=== PATIENT | female | born 1965 | race Caucasian/White ===

== ENCOUNTER 2019-12-26 13:41 | Outpatient (CLI) | payer MEDICARE, MEDICAID, SELFPAY ==
--- NOTE | ~2019-12-26 | MR_ITS ---
EXAMINATION: MR lumbar spine wo con DATE: 12/26/2019 14:49 INDICATION: Dorsalgia, unspecified. TECHNIQUE: Magnetic resonance imaging (MRI) of the lumbar spine was performed without intravenous con trast. Sequences included sagittal T2-weighted FSE, sagittal T2-weighted FS FSE, sagittal T1-weighted FSE, and axial T2-weighted FSE. COMPARISON: None FINDINGS: There is 12 degrees levoscoliosis of thoracolumbar spine. Vertebral body heights are normal . There is moderately decreased disc height at L4-L5. The distal spinal cord signal intensity is norm al. The conus medullaris is at L1. The following disc levels are specifically discussed: L1-L2: There is a central protrusion. There is severe bilateral facet joint osteoarthritis. There is mild bilateral neural foraminal stenosis. There is mild central canal stenosis. L2-L3: The disc is bulging. There is severe bilateral facet joint osteoarthritis. There is mild bilat eral neural foraminal stenosis. There is mild central canal stenosis. L3-L4: The disc is bulging. There is severe bilateral facet joint osteoarthritis. There is mild right and moderate left neural foraminal stenosis. There is mild central canal stenosis. L4-L5: The disc is bulging. There is severe bilateral facet joint osteoarthritis. There is mild right and moderate left neural foraminal stenosis. There is mild central canal stenosis. L5-S1: The disc is mildly bulging. There is severe bilateral facet joint osteoarthritis. There is mil d bilateral neural foraminal stenosis. There is no central canal stenosis. IMPRESSION: 1. Moderate lumbar spondylosis. 2. Thoracolumbar levoscoliosis. Reviewed, dictated and finalized at location A. M AUDITOR
== END 2019-12-26 13:42 | disposition home or self-care (01) ==
PROVIDERS: PCP Family Medicine; Visit Provider Nurse Practitioner Family
DX: M79.605 Pain in left leg (principal); M47.896 Other spondylosis, lumbar region
CPT/HCPCS: 72148

== ENCOUNTER 2021-10-22 17:45 | Emergency (ER) | payer MEDICARE, MEDICAID, SELFPAY ==
--- NOTE | ~2021-10-22 | XR_ITS ---
EXAMINATION: XR shoulder RT min 2V DATE: 10/22/2021 18:55 INDICATION: Right shoulder pain. TECHNIQUE: 4 views of right shoulder were obtained. COMPARISON: None. FINDINGS: Bone alignment is normal. No fracture. There is mild osteoarthritis of glenohumeral joint a nd moderate osteoarthritis of acromioclavicular joint. IMPRESSION: 1. Polyarticular osteoarthritis. Reviewed, dictated and finalized at location A. ROAD INSPECTOR
[2021-10-22 17:48] VITALS: BP 121/52; PULSE 65; RESP 20; TEMP 36.3; O2SAT 98
--- NOTE | 2021-10-22 19:01 | ED.UPPEXIN ---
HPI - Extremity Injury (Upper) General Chief Complaint: Extremity Injury, Upper Stated Complaint: right shoulder pain - 2 weeks Time Seen by Provider: 10/22/21 18:43 Source: patient Mode of arrival: ambulatory Limitations: no limitations History of Present Illness HPI narrative: This is a 56-year-old female that presents to the emergency department for right shoulder pain ongoing over the last couple of weeks. Reports it started after moving a couch a couple of weeks ago. The pain is worse with movement and relieved with rest. She has been taking [id number] medications with some relief. She does have an appointment to see her orthopedic doctor in about a week for this. Reports decreased range of motion due to pain. Denies fever, erythema, edema, or numbness. Related Data Home Medications Medication Instructions Recorded Confirmed apixaban 5 mg tablet 5 mg PO BID 12/20/19 03/26/21 atorvastatin 40 mg tablet 40 mg PO DAILY 12/20/19 03/26/21 metoprolol tartrate 25 mg tablet 25 mg PO DAILY 12/20/19 03/26/21 Allergies Allergy/AdvReac Type Severity Reaction Status Date / Time No Known Allergies Allergy Verified 03/26/21 14:13 Review of Systems Review of Systems: CONSTITUTIONAL: Denies fever MUSCULOSKELETAL: Reports joint pain, and myalgia. NEUROLOGIC: Denies numbness, or weakness. All systems reviewed & are unremarkable except as noted in HPI and below PMFSH Past Medical History Medical History (Updated 10/22/21 @ 19:25 by Latricia Cali PA-C) A-fib Bilateral knee pain Left hip pain Lumbar spine pain Lumbar spondylosis Peroneal nerve injury Trochanteric bursitis, left hip Wears glasses Surgical History Surgical History (Updated 03/27/21 @ 09:35 by Shayy Meadows, RT(R)) History of bilateral knee replacement History of hand surgery Bilateral Hand, 2020, Dr. Perez Total knee replacement status Family History Family History Other Diabetes mellitus Family history of arthritis Family history of cardiovascular disease Hypertension Social History Social History Smoking status: Never smoker Alcohol intake: never Exam Narrative: GENERAL: Well-appearing, well-nourished, and in no acute distress. HEAD: Normocephalic, atraumatic. EYES: EOMI. CHEST: No respiratory distress. HEART: Regular rate EXTREMITIES: Decreased active ROM in the right shoulder above 90 degrees due to pain. No edema, erythema or warmth. Normal radial pulses. Normal sensation SKIN: Warm, dry, no rash. NEURO: No focal deficits. Alert and oriented x3. PSYCH: Normal mood and affect Course Vital Signs Vital signs: Vital Signs Temperature 97.3 F L 10/22/21 17:48 Pulse Rate 65 10/22/21 17:48 Respiratory Rate 20 10/22/21 17:48 Blood Pressure 121/52 L 10/22/21 17:48 Pulse Oximetry 98 10/22/21 17:48 Temperature 97.3 F L 10/22/21 17:48 Pulse Rate 65 10/22/21 17:48 Respiratory Rate 20 10/22/21 17:48 Blood Pressure 121/52 L 10/22/21 17:48 Pulse Oximetry 98 10/22/21 17:48 MDM - Extremity Injury (Upper) MDM Narrative Medical decision making narrative: Patient presents to the ER for right shoulder pain ongoing over the last 2 weeks. Patient is neurovascularly intact. Right shoulder x-ray without acute osseous abnormalities. Does show polyarticular osteoarthritis. Patient was updated on case findings. Reports she does have an appointment to follow up with her orthopedic doctor in a week. Instructed to continue [id number] pain medication as needed. Will be given muscle relaxer as needed for pain. She is to follow-up with her orthopedic doctor. She was given warnings to return the ER Imaging Data Radiologist's impression: ITS Impressions Shoulder X-Ray 10/22/21 18:57 IMPRESSION: 1. Polyarticular osteoarthritis. Critical Care Time Critical Care Time Crit
[2021-10-22 19:46] VITALS: BP 123/67; PULSE 69; RESP 15; O2SAT 99
== END 2021-10-22 19:49 | disposition home or self-care (01) ==
PROVIDERS: Emergency Provider Emergency Medicine; PCP Family Medicine
DX: M25.511 Pain in right shoulder (principal); I48.91 Unspecified atrial fibrillation
CPT/HCPCS: 73030; 99283

== ENCOUNTER 2025-01-30 16:31 | Emergency (ER) | payer MEDICARE, MEDICAID, SELFPAY ==
--- NOTE | ~2025-01-30 | XR_ITS ---
XR knee RT min 4V Ordering provider: Mayte White PA-C History: . pain, hx previous surg . Comparison: January 27, 2023 FINDINGS: BONES: Postoperative changes seen in the distal femur. No dislocation. Postoperative changes in the mid tibia is also noted. JOINT SPACES: Total knee arthroplasty. SOFT TISSUES: Normal. IMPRESSION: No acute osseous abnormality right knee. Total knee arthroplasty with postoperative changes in the distal femur. Reviewed, dictated and finalized at location A.
[2025-01-30 17:13] VITALS: BP 109/57; PULSE 79; RESP 20; TEMP 36.4; O2SAT 100
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
--- OUTSIDE RECORDS SUMMARY | 2025-01-30 17:52 | XMS_ITS | Clinical Summary ---
Author Organization [facility] Address [address] [place] [address] Care Team Providers Care Firmware Developer Name Role Phone Marvin Alcaraz MD Primary Care Provide r Fiorella Worley MD Unavailable [phone] Allergies No known active allergies Medications calcium carbonate-vitam in D3 400-133.3 mg-unit tabletIndicatio ns:Prevention of Vitamin D Deficiency Take 1 tablet by mouth every morning Active ferrous sulfate 325 mg (65 mg of elemental iron) tabletIndicatio ns:Iron Deficiency Anemia,Sun- - Take 1 tablet (325 mg total) by mouth 3 (three) times a week Tuesday//Tuesday Active apixaban (ELIQUIS) 5 mg tabletIndicatio ns:atrial fibrillation,hx stroke. Last dose 02/06 pm, on hold for surgery Take 1 tablet (5 mg total) by mouth 2 (two) times a day Active cyanocobalamin (Vitamin B-12) 100 mcg tabletIndicatio ns:Prevention of Vitamin B12 Deficiency Take 1 tablet (100 mcg total) by mouth every morning Active aspirin 81 mg enteric coated tabletIndicatio ns:prevention of thrombosis Take 1 tablet (81 mg total) by mouth nightly Active Linzess 145 mcg capsuleIndicati ons:constipatio n Take 1 capsule (145 mcg total) by mouth every morning 06/27/2023 Active VITAMIN K2 ORALIndications :supplement Take 1 tablet by mouth every morning Active montelukast (SINGULAIR) 10 mg tablet 12/24/2023 Active Nexletol 180 mg tablet Take 1 tablet every day by oral route for 90 days. Active Unithroid 50 mcg tablet Take 1 tablet every day by oral route for 90 days. 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 Hypoproteinemia 04/10/2024 Elevated liver enzymes 04/09/2024 Hypothyroidism 04/09/2024 Leukopenia 04/09/2024 Seasonal allergic rhinitis 03/27/2024 Low serum vitamin B12 03/15/2024 Vitamin D deficiency 03/15/2024 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, type III, with nonunion 06/21/2023 Persistent insomnia 06/07/2023 Open displaced pilon fractur e of tibia, type IIIA, IIIB, or IIIC, with routine healing 06/06/2023 Fracture of foot 03/02/2023 03/16/2023 Type III open fracture of left lower leg 023 Overview (02/04/2023): Added automatically from request for surgery [id number] Carpal tunnel syndrome, left 10/13/2021 Carpal tunnel syndrome, right 10/13/2021 Overview (10/13/2021): Added automatically from request for surgery [id number] Finger stiffness, left 10/13/2021 Overview (10/13/2021): Added automatically from request for surgery [id number] Sleep apnea 09/18/2021 03/16/2023 Family history of stroke 06/23/2021 Depressive disorder 02/20/2021 Gallstone 02/20/2021 Low back pain 02/20/2021 Osteoarthritis of knee 02/20/2021 Dupuytren's contracture of both hands 02/06/2021 Overview (02/06/2021): Added automatically from request for surgery [id number] Dupuytren's contracture of right hand 11/18/2020 Overview (11/18/2020): Added automatically from request for surgery [id number] Encounter for gynecological examination without abnormal finding 08/25/2020 Overview (04/21/2022): WWE 03/2022 -Patient is postmenopausal. Denies postmenopausal bleeding. IUD in place since 09/2015. -STI screening discussed. Patient declines. -Colonoscopy normal 08/2018, due 08/2023. -Mammogram normal 06/2021, continue yearly screening. -DEXA not indicated. -Pap negative cotesting 06/2017, 03/2022 with NILM but HRHPV+ (16/18 negative) -> needs cotest in 1 year -Diet and exercise discussed. S/p bariatric surgery and has been trying to diet and exercise. -Calcium and vitamin D intake discussed. Dysphagia 11/30/2019 Overview (11/30/2019): Added automatically from request for surgery [id number] Morbid obesity 11/30/2019 Overview (11/30/2019): Added automatically from request for surgery [id number] Intestinal malabsorption 11/30/2019 Overview (11/30/2019): Added automatically from request for surgery [id number] BMI 38.0-38.9,adult 07/17/2018 Abnormal cervical Papanicolaou smear 07/17/2017 Overview (02/13/2024): - NILM, HR HPV + non 16/18 in 04/09/2022, recommended repeat cotesting In 1 year Plan: - Cotest collected today History of bariatric surgery 10/01/2016 Hypercholesterolemia 02/04/2016 Complex endometrial hyperplasia without atypia 1 Overview (02/13/2024): - s/p HSC/D&C 09/2015, pathology showing endometrium with exogenous hormone effect, IUD placed - s/p EmBx 2017 with benign tissue - Given two benign pathologies, screening was discontinued - hIUD removed 02/13/2024 - Patient given strict return precautions if bleeding returns - Low threshold for repeat endometrial biopsy Atrial fibrillation 07/11/2014 Dyslipidemia 07/05/2014 Temporary cerebral vascular dysfunction 07/05/20 14 Resolved Problems Problem Noted Date Diagnosed Date Resolved Date Acute pharyngitis 11/07/2023 01/25/2024 Closed displaced pilon fract ure of right tibia 10/19/2023 01/25/2024 Pain in both lower extremities 09/27/2023 01/25/2024 Muscle pain 03/07/2023 03/16/2023 01/25/2024 Open fracture of right lower leg, type IIIA, IIIB, or IIIC 02/04/2023 01/25/2024 Overview (02/04/2023): Added automatically from request for surgery [id number] Fracture deformity 02/04/2023 Upper respiratory infection 01/21/2023 03/16/2023 01/25/2024 Mass of soft tissue 06/11/2022 03/16/2023 01/25/20 24 Foot pain 06/02/2022 03/16/2023 01/25/2024 Coronavirus infection 05/20/20212023 Blepharitis 02/20/2021 01/25/2024 Cervical lymphadenopathy 02/20/202104/2024 Constipation 02/20/2021 01/25/2024 Dyspnea 02/20/2021 01/25/2024 Eruption due to drug 02/20/2021 024 Nausea and vomiting 02/20/2021 01/25/20 24 Symptoms involving urinary system 02/20/2021 01/25/2024 Dizziness 09/06/2018 01/25/2024 Excess skin of abdominal wall 11/02/2016 01/25/2024 Hypotension 02/04/2016 01/25/2024 Sensory disturbance 11/09/2014 01/25/20 24 Encounters Date Type Department Care Team Description 12/26/2024 8:10 AM SENIOR BUSINESS PROCESS ANALYST Office Visit [facility] Orthopaedic Surgery [address] [place] [address] Advanced [facility] 6[address] [place] [address] [place] [address] Susan Malloy MD 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, unspecified fracture morphology, subsequent encounter (Primary Dx) 12/26/2024 7:29 AM SENIOR BUSINESS PROCESS ANALYST - 12/26/2024 11:59 PM SENIOR BUSINESS PROCESS ANALYST Hospital Encounter [facility] ([facility] [address] [place] [phone] Susan Malloy MD 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, unspecified fracture morphology, subsequent encounter Discharge Disposition: Discharge to home or self care 11/20/[address] [address] Skyler Son MD 11/07/2024 8:00 AM SENIOR BUSINESS PROCESS ANALYST Office Visit [facility] Orthopaedic Surgery [address] [place] [address] Advanced [facility] 6th [place] [address] [place] [address] Susan Malloy MD 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, unspecified fracture morphology, subsequent encounter (Primary Dx) 11/07/2024 7:30 AM SENIOR BUSINESS PROCESS ANALYST - 11/07/2024 11:59 PM SENIOR BUSINESS PROCESS ANALYST Hospital Encounter [facility] ([facility]) [address] [place] [phone] Susan Malloy MD 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, unspecified fracture morphology, subsequent encounter Discharge Disposition: Discharge to home or self care from Last 3 Months Immunizations Immunization Administration Dates Next Due Influenza, Quadrivalent, Spl it, Preservative Free, Intramuscular 09/04/2021,09/15/2020,09/17/2019,10/04,10/04/2017,09/10/2015 Influenza, Trivalent, IM (MDV) 11/28/2012,2012 Influenza, Trivalent, Preser vative Free, Intramuscular 09/13/2014 Influenza, Unspecified 11/21/2022,08/25/2013 Pneumococcal Polysaccharide PPV23 10/04/2017 Tdap 02/04/2023 ZOSTER Recombinant 09/16/2020 Surgical History Surgery Date Site/Laterality Comments IN GASTRIC RSTCV W/BYP W/RANJAN RT LIMB 150 CM/< 11/21/2012 - 11/20/2013 Gastric Surgery For Morbid Obesity Bypass With Josue-en-Y - (Added by TW Conv) EXPLORATORY LAPAROTOMY 11/21/2013 - 11/20/2014 HYSTEROSCOPY 11/21/2016 - 11/20/2017 SECTION 11/21/1996 - 11/20/1997 CHOLECYSTECTOMY 11/21/2013 - 11/20/2014 Cholecystectomy - (Added by TW Conv) TOTAL KNEE ARTHROPLASTY 11/21/2015 - 11/20/2016 Right TOTAL KNEE ARTHROPLASTY 11/21/2017 - 11/20/2018 Left COLONOSCOPY 09/15/2018 DEBRIDEMENT LEG 02/04/2023 Bilateral APPLICATION EXTERNAL FIXATION DEVICE LOWER EXTREMITY SECTION 11/21/1988 - 11/20/1989 SECTION 11/21/1990 - 11/20/1991 ESOPHAGOGASTRODUODENOSCOPY 12/04/2019 PALMAR FASCIECTOMY 02/12/2021 Left Left Palm, Middle Finger, Small finger PALMAR FASCIECTOMY 12/01/2020 Right Right small finger and thumb ORTHOPEDIC SURGERY 02/22/2023 REMOVAL EXTERNAL FIXATION DEVICE LOWER EXTREMITY/OPEN REDUCTION INTERNAL FIXATION TIBIA /fibula- DISTAL / PILON AND CEMENT PLACEMENT - SYNTHES BONE GRAFT 06/21/2023 Right HARDWARE REMOVAL 09/25/2024 Left ankle Medical History Medical History Date Comments Benign endometrial hyperplasia C omplex endometrial hyperplasia without atypia - (Added by TW Conv) Abnormal Pap smear of cervix Irregular menses TIA (transient ischemic attack) 2013 Atrial fibrillation (HCC) Stroke (HCC) 2014 Dysphagia Arthritis Sleep apnea 09/18/2021 Nausea and vomiting 02/20/2021 PONV (postoperative nausea a nd vomiting) Family History Medical History Relation Name Comments Heart disease Father Hypertension Mother Family history of hypertension - (Added by TW Conv) Diabetes Paternal Grandmother Anesthesia problems Neg Hx Relation Name Status Comments Father Mother Paternal Grandmother Social History Tobacco Use Types Packs/Day Years Used Date Smoking Tobacco: Never Passive Smoke Exposure: Past Smokeless Tobacco: Never Tobacco Cessation:Counseling Given: Not Answered Alcohol Use Standard Drinks/Week Comments No 0 (1 standard drink = 0.6 oz pur e alcohol) OASIS D0700: Social Isolation Answer Da te Recorded Frequency of experiencing loneliness or isolatio n Never 08/17/2023 OASIS A1250: Transportation Answer Date Recorded Lack of Transportation (Medical) No 08/17/2023 Lack of Transportation (Non-Medical) No 08/17/2023 Patient Unable or Declines to Respond No 08/17/2023 OASIS B1300: Health Literacy Answer Herbie e Recorded Frequency of needing help to read materials from doctor or pharmacy Never 08/17/2023 AUDIT-C Answer Date Recorded Q1: How often do you have a drink containing alcohol? Never 09/25/2024 Q2: How many drinks containi ng alcohol do you have on a typical day when you are drinking? Patient does not drink Q3: How often do you have si x or more drinks on one occasion? Never 09/25/2024 Hunger Vital Sign Answer Date Recorded Within the past 12 months, y ou worried that your food would run out before you got the money to buy more. Never true 02/13/20 24 Within the past 12 months, t he food you bought just didn't last and you didn't have money to get more. Never true 02/13/2024 Personal Safety Answer Date Recorded Have you ever been in or are you currently in a harmful physical or emotional relationship or is someone making you feel afraid or unsafe? Patient unable to answer 09/25/2024 Comments No Sex and Gender Information Value Date Recorded Sex Assigned at Not on file Legal Sex Female 10:02 AM SENIOR BUSINESS PROCESS ANALYST Gender Identity Not on file Sexual Orientation Straight 07/06/2021 8: 53 AM CDT Obstetrics History Para Term AB IAB SAB Ectopic Multiple Livin g Live Births 3 3 3 3 3 Date Outcome GA Total Labor Labor/2nd/3rd Weight Sex Type Anes PTL Belkys A1 A5 Name Clin Term CS-LTra nv Term CS-LTra nv Term CS-LTra nv Last Filed Vital Signs Vital Sign Reading Time Taken Comments Blood Pressure 112/54 09/25/2024 3:50 PM SENIOR BUSINESS PROCESS ANALYST Pulse 67 09/25/2024 3:50 PM SENIOR BUSINESS PROCESS ANALYST Temperature 36.2 C (97.2 F) 09/25/2024 12:55 PM SENIOR BUSINESS PROCESS ANALYST Respiratory Rate 9 09/25/2024 3:50 PM SENIOR BUSINESS PROCESS ANALYST Oxygen Saturation 93% 09/25/2024 3:30 PM SENIOR BUSINESS PROCESS ANALYST Inhaled Oxygen Concentration - - Weight 145.2 kg (320 lb) 09/25/2024 8:10 AM SENIOR BUSINESS PROCESS ANALYST Height 167.6 cm (5' 6 ) 01/22/2024 7:51 PM SENIOR BUSINESS PROCESS ANALYST Body Mass Index 51.65 01/22/2024 7:51 PM SENIOR BUSINESS PROCESS ANALYST Plan of Treatment Health Maintenance Due Date Last Done Comments Depression Screening 1964 Hepatitis B Screening 1982 Regular Well Visit/Exam 18-64 08/25/2021 08/25/2020, 07/17/2018 Covid-19 Vaccine ( season) 2024 10/21/2021, 01/24/2021 Breast Cancer Screening-Mammogram 12/31/2024 12/31/2023, 08/20/2022, 08/20/2022, Additional history exists Cervical Cancer Screening 02/12/20252023, 02/13/2024, 04/09/2022 Colon Cancer Screening-Colonoscopy 09/15/2028 09/15/2018 DTaP/Tdap/Td Vaccine (2 - Td or Tdap) 02/04/2033 02/04/2023 Colon Cancer Screening-CT Colonography Discontinued 09/15/2018 Colon Cancer Screening-DNA Stool Discontinued 09/15/2018 Colon Cancer Screening-FIT Discontinued 09/15/2018 Colon Cancer Screening-Sigmoidoscopy Discontinued 09/15/2018 Zoster Vaccine Completed 11/25/2020, 09/16/2020 Hepatitis C Screening Completed 02/22/2023 Pneumococcal vaccine <65 Aged Out 09/28/2023, 09/21 No longer eligible based on patient's age to complete this topic Influenza Vaccine Completed 10/24/2024, , 11/21/2022, Additional history exists Medical Devices Implanted Type Area [employer] Supervisor Device Identifier Shelf Expiration Date Model / Serial / Lot Nail [id number] Implanted:Qty: 1 on 10/25/2023 by Fiorella Worley MD at [facility] Nail Right: Ankle [employer] 07/26/2024 FRANCIS-1010-1 0210 / / [id number] Description:inactive Allosource Freeze Dried Chips 4-10mm Graft 30ml Bone Cancellous [id number] - [id number] Implanted:Qty: 1 on 06/21/2023 by Fiorella Worley MD at [facility] Other - see comments Right: Leg [employer]osource 01/28/2028 [id number] / [id number] / [id number] Description:Cancellous Chips Allosource Freeze Dried Chips 4-10mm Graft 30ml Bone Cancellous 37597578 - [id number] - [id number] Implanted:Qty: 1 on 06/21/2023 by Fiorella Worley MD at [facility] Other - see comments Right: Leg [employer] 10/18/2027 [id number] / [id number] / [id number] Description:Cancellous Chips Synthes Lcp Combi 853d91i2.4mm 10 Hole Limit Contact Taper End Plate Bone 223.601 - [id number] Implanted:Qty: 1 on 06/21/2023 by Fiorella Worley MD at [facility] Plate Right: Leg Synthes I 223.601 / / Synthes 3.5mm 6mm 70mm 2.5mm Self Tap Small Hexagonal Socket Low Profile 204.870 - [id number] Implanted:Qty: 2 on 06/21/2023 by Fiorella Worley MD at [facility] Screw Right: Leg Synthes I 204.870 / / Synthes 3.5mm 6mm 42mm 2.5mm Self Tap Small Hexagonal Socket Low Profile 204.842 - [id number] Implanted:Qty: 1 on 06/21/2023 by Fiorella Worley MD at [facility] Screw Right: Leg Synthes I 204.842 / / Synthes 3.5mm 2.9mm 50mm Self Tap Lock Stardrive Conical Head T15 Full 212.121 - [id number] Implanted:Qty: 1 on 06/21/2023 by Fiorella Worley MD at [facility] Screw Right: Leg Synthes I 212.121 / / Synthes 3.5mm 2.9mm 85mm Self Tap Lock Stardrive Conical Head T15 Full 212.129 - [id number] Implanted:Qty: 1 on 06/21/2023 by Fiorella Worley MD at [facility] Screw Right: Leg Synthes I 212.129 / / Hardware Bilater al: Knee Synthes Schanz 5mm 170mm 50mm Blunt [place]car [place] Xlong Screw External 294.55 - [id number] Implanted:Qty: 4 on 02/04/2023 by Torey Escalera MD at [facility] Leg Synthes I 294.55 / / Synthes Steinmann 5mm 5.5mm 275mm Central Thread Pin Fixation Large 293.890 - [id number] Implanted:Qty: 2 on 02/04/2023 by Torey Escalera MD at [facility] Bilater al: Leg Synthes I 293.890 / / Synthes 3.5mm 6mm 34mm 2.5mm Self Tap Small Hexagonal Socket Low Profile 204.834 - [id number] Implanted:Qty: 1 on 02/22/2023 at [facility] Left: Tibia Synthes I 204.834 / / Synthes Lcp Combi 112mm 6 Hole Fibula Left Distal Lateral Contour Plate 02.112.143 - [id number] Implanted:Qty: 1 on 02/22/2023 at [facility] Left: Tibia Synthes I 02.112.143 / / Synthes Lcp Combi 158mm 11 Hole Low Profile Limit Contact Taper Tip 241.447 - [id number] Implanted:Qty: 1 on 02/22/2023 at [facility] Left: Tibia Synthes I 241.447 / / Synthes 3.5mm 2.9mm 50mm Self Tap Lock Stardrive Conical Head T15 Full 212.121 - [id number] Implanted:Qty: 1 on 02/22/2023 at [facility] Left: Tibia Synthes I 212.121 / / Synthes 3.5mm 6mm 36mm 2.5mm Self Tap Small Hexagonal Socket Low Profile 204.836 - [id number] Implanted:Qty: 2 on 02/22/2023 by Fiorella Worley MD at [facility] Right: Tibia Synthes I 204.836 / / Synthes 3.5mm 6mm 24mm 2.5mm Self Tap Small Hexagonal Socket Low Profile 204.824 - [id number] Implanted:Qty: 1 on 02/22/2023 by Fiorella Worley MD at [facility] Right: Tibia Synthes I 204.824 / / Synthes 3.5mm 2.9mm 45mm Self Tap Lock Stardrive Conical Head T15 Full 212.119 - [id number] Implanted:Qty: 2 on 02/22/2023 by Fiorella Worley MD at [facility] Right: Tibia Synthes I 212.119 / / Synthes 3.5mm 6mm 26mm 2.5mm Self Tap Small Hexagonal Socket Low Profile 204.826 - [id number] Implanted:Qty: 1 on 02/22/2023 by Fiorella Worley MD at [facility] Right: Tibia Synthes I 204.826 / / Synthes 3.5mm 2.9mm 40mm Self Tap Lock Stardrive Conical Head T15 Full 212.117 - [id number] Implanted:Qty: 2 on 02/22/2023 by Fiorella Worley MD at [facility] Left: Tibia Synthes I 212.117 / / Synthes 3.5mm 6mm 22mm 2.5mm Self Tap Small Hexagonal Socket Low Profile 204.822 - [id number] Implanted:Qty: 1 on 02/22/2023 by Fiorella Worley MD at [facility] Right: Tibia Synthes I 204.822 / / Synthes 2.7mm 2.1mm 14mm Self Tap Lock Stardrive Thread Head Profile T8 202.214 - [id number] Implanted:Qty: 2 on 02/22/2023 by Fiorella Worley MD at [facility] Right: Tibia Synthes I 202.214 / / Synthes 3.5mm 6mm 30mm 2.5mm Self Tap Small Hexagonal Socket Low Profile 204.830 - [id number] Implanted:Qty: 1 on 02/22/2023 by Fiorella Worley MD at [facility] Right: Tibia Synthes I 204.830 / / Synthes 3.5mm 2.9mm 50mm Self Tap Lock Stardrive Conical Head T15 Full 212.121 - [id number] Implanted:Qty: 1 on 02/22/2023 by Fiorella Worley MD at [facility] Right: Tibia Synthes I 212.121 / / Synthes 3.5mm 2.9mm 26mm Self Tap Lock Stardrive Conical Head T15 Full 212.109 - [id number] Implanted:Qty: 1 on 02/22/2023 by Fiorella Worley MD at [facility] Right: Tibia Synthes I 212.109 / / Synthes 2.7mm 2.1mm 16mm Self Tap Lock Stardrive Thread Head Profile T8 202.216 - [id number] Implanted:Qty: 2 on 02/22/2023 by Fiorella Worley MD at [facility] Right: Tibia Synthes I 202.216 / / Synthes 3.5mm 6mm 14mm 2.5mm Self Tap Small Hexagonal Socket Low Profile 204.814 - [id number] Implanted:Qty: 1 on 02/22/2023 by Fiorella Worley MD at [facility] Right: Tibia Synthes I 204.814 / / Synthes 3.5mm 2.9mm 40mm Self Tap Lock Stardrive Conical Head T15 Full 212.117 - [id number] Implanted:Qty: 1 on 02/22/2023 by Fiorella Worley MD at [facility] Right: Tibia Synthes I 212.117 / / Synthes 3.5mm 6mm 40mm 2.5mm Self Tap Small Hexagonal Socket Low Profile 204.840 - [id number] Implanted:Qty: 1 on 02/22/2023 by Fiorella Worley MD at [facility] Right: Tibia Synthes I 204.840 / / Synthes 2.7mm 2.1mm 12mm Self Tap Lock Stardrive Thread Head Profile T8 202.212 - [id number] Implanted:Qty: 1 on 02/22/2023 by Fiorella Worley MD at [facility] Right: Tibia Synthes I 202.212 / / Synthes 2.7mm 2.1mm 12mm Self Tap Lock Stardrive Thread Head Profile T8 202.212 - [id number] Implanted:Qty: 1 on 02/22/2023 by Fiorella Worley MD at [facility] Left: Tibia Synthes I 202.212 / / Synthes Lcp Combi 210mm 15 Hole Low Profile Limit Contact Taper Tip 241.450 - [id number] Implanted:Qty: 1 on 02/22/2023 by Fiorella Worley MD at [facility] Left: Tibia Synthes I 241.450 / / [employer] Simplex P Full Dose Radiopaque Preblend Cement Bone Tobramycin 6197-9-001 - [id number] Implanted:Qty: 1 on 02/22/2023 by Fiorella Worley MD at [facility] Right: Tibia [employer] [id number] 07/21/2024 6197-9-001 / / [id number] Synthes 3.5mm 6mm 30mm 2.5mm Self Tap Small Hexagonal Socket Low Profile 204.830 - [id number] Implanted:Qty: 1 on 02/22/2023 by Fiorella Worley MD at [facility] Left: Tibia Synthes I 204.830 / / Synthes 2.7mm 2.1mm 16mm Self Tap Lock Stardrive Thread Head Profile T8 202.216 - [id number] Implanted:Qty: 1 on 02/22/2023 by Fiorella Worley MD at [facility] Left: Tibia Synthes I 202.216 / / Synthes 2.7mm 2.1mm 14mm Self Tap Lock Stardrive Thread Head Profile T8 202.214 - [id number] Implanted:Qty: 2 on 02/22/2023 by Fiorella Worley MD at [facility] Left: Tibia Synthes I 202.214 / / Synthes Lcp Combi 151mm 9 Hole Fibula Right Distal Lateral Contour Plate 02.112.148 - [id number] Implanted:Qty: 1 on 02/22/2023 by Fiorella Worley MD at [facility] Right: Tibia Synthes I 02.112.148 / / Synthes 3.5mm 6mm 12mm 2.5mm Self Tap Small Hexagonal Socket Low Profile 204.812 - [id number] Implanted:Qty: 1 on 02/22/2023 by Fiorella Worley MD at [facility] Right: Tibia Synthes I 204.812 / / Synthes 3.5mm 6mm 18mm 2.5mm Self Tap Small Hexagonal Socket Low Profile 204.818 - [id number] Implanted:Qty: 1 on 02/22/2023 by Fiorella Worley MD at [facility] Right: Tibia Synthes I 204.818 / / Synthes 3.5mm 2.9mm 45mm Self Tap Lock Stardrive Conical Head T15 Full 212.119 - [id number] Implanted:Qty: 3 on 02/22/2023 by Fiorella Worley MD at [facility] Left: Tibia Synthes I 212.119 / / Synthes 3.5mm 2.9mm 40mm Self Tap Lock Stardrive Conical Head T15 Full 212.117 - [id number] Implanted:Qty: 2 on 02/22/2023 at [facility] Left: Tibia Synthes I 212.117 / / Synthes 3.5mm 6mm 28mm 2.5mm Self Tap Small Hexagonal Socket Low Profile 204.828 - [id number] Implanted:Qty: 3 on 02/22/2023 by Fiorella Worley MD at [facility] Left: Tibia Synthes I 204.828 / / Synthes 3.5mm 6mm 14mm 2.5mm Self Tap Small Hexagonal Socket Low Profile 204.814 - [id number] Implanted:Qty: 3 on 02/22/2023 by Fiorella Worley MD at [facility] Left: Tibia Synthes I 204.814 / / Synthes 3.5mm 6mm 40mm 2.5mm Self Tap Small Hexagonal Socket Low Profile 204.840 - [id number] Implanted:Qty: 1 on 02/22/2023 at [facility] Left: Tibia Synthes I 204.840 / / Synthes 3.5mm 6mm 18mm 2.5mm Self Tap Small Hexagonal Socket Low Profile 204.818 - [id number] Implanted:Qty: 1 on 02/23/2023 at [facility] Left: Tibia Synthes I 204.818 / / [employer] r[employer] Screw Bone Cortical St Non Locking Evos 3.5x30mm Ss 01809709 - [id number] Implanted:Qty: 2 on 10/25/2023 by Fiorella Worley MD at [facility] Right: Ankle [employer]/ Ortho [id number] / / [employer] Evos 3.5mm 40mm Self Tap Cortex Screw Bone Sterile 51046640 - [id number] Implanted:Qty: 1 on 10/25/2023 by Fiorella Worley MD at [facility] Right: Ankle [employer]/ Ortho [id number] / / [employer] 2.7mm 4.3mm 42mm Lock Self Retain Flat Head Long Bone Small Bone 42394007 - [id number] Implanted:Qty: 1 on 10/25/2023 by Fiorella Worley MD at [facility] Right: Ankle [employer]/ Ortho [id number] / / [employer] Evos 3.5mm 44mm Self Tap Lock Screw Bone Sterile [id number] - [id number] Implanted:Qty: 1 on 10/25/2023 by Fiorella Worley MD at [facility] Right: Ankle [employer]/ Ortho [id number] / / 5.0 Ft Screw Implanted:Qty: 2 on 10/25/2023 by Fiorella Worley MD at [facility] Right: Ankle [employer] FARNCIS-1010-1 [id number] / / Description:inactive 5.0ft Screw Implanted:Qty: 2 on 10/25/2023 by Fiorella Worley MD at [facility] Right: Ankle [employer] FRANCIS-1010-1 475NS / / Description:inactive [employer]Rich[employer]/O rtho Evos 195x11.4x3.4mm 18.8x2.7mm 15 Hole Low Profile Variable Angle [id number] - [id number] Implanted:Qty: 1 on 10/25/2023 by Fiorella Worley MD at [facility] Right: Ankle [employer]Rich[employer]/ Ortho [id number] / / [employer]Rich[employer]/O rtho Evos Mini 2.7mm 4.5mm 12mm Self Tap Cortex T8 Screw Bone [id number] - [id number] Implanted:Qty: 1 on 10/25/2023 by Fiorella Worley MD at [facility] Right: Ankle [employer]Rich[employer]/ Ortho [id number] / / [employer]hew[employer]Rich[employer]/O rtho Evos 3.5mm 50mm Self Tap Cortex Screw Bone Sterile [id number] - [id number] Implanted:Qty: 1 on 10/25/2023 by Fiorella Worley MD at [facility] Right: Ankle [employer]Rich[employer]/ Ortho [id number] / / 5.0 Ft Screw Implanted:Qty: 1 on 09/25/2024 by Fiorella Worley MD at [facility] FRANCIS-1010-1 444NS / / Description:Inactive in the system. Misc code used. 5.0 Ft Screw 2 Implanted:Qty: 2 on 09/25/2024 by Fiorella Worley MD at [facility] FRANCIS-1010-1 424NS / / Description:Inactive in syst em. Misc code used 3 Implanted:Qty: 1 on 09/25/2024 by Fiorella Worley MD at [facility] FRANCIS-1010-2 675NS / / Description:Inactive in the system. Misc code used 5.0 Pt Screw 4 Implanted:Qty: 1 on 09/25/2024 by Fiorella Worley MD at [facility] FRANCIS-1010-2 670NS / / Description:Inactive in the system. Misc code used Nail, 010mm X 210mm Implanted:Qty: 1 on 09/25/2024 by Fiorella Worley MD at [facility] FRANCIS-1010-1 0210 / / Description:Inactive in the system misc code used Explanted Type Area [employer]erry [employer] Supervisor Device Identifier Shelf Expiration Date Model / Serial / Lot Synthes 3.5mm 6mm 32mm 2.5mm Self Tap Small Hexagonal Socket Low Profile 204.832 - [id number] Explanted:Qty: 1 on 02/22/2023 at [facility] Left: Tibia Synthes I 204.832 / / Synthes 3.5mm 6mm 150mm 2.5mm Self Tap Low Profile Small Hexagonal Socket 204.750 - [id number] Explanted:Qty: 1 on 10/25/2023 at [facility] Right: Ankle Synthes I 204.750 / / [employer]/ Ortho Evos 3.5mm 10mm Self Tap Cortex Screw Bone Sterile [id number] - [id number] Explanted:Qty: 1 on 10/25/2023 at [facility] Right: Ankle [employer]/Or tho [id number] / / [employer]/ Ortho Evos 3.5mm 16mm Self Tap Cortex Screw Bone Sterile [id number] - [id number] Explanted:Qty: 1 on 10/25/2023 at [facility] Right: Ankle [employer]/Or tho [id number] / / [employer]/ Ortho 2.7mm 4.3mm 16mm Self Tap Lock T8 2mm Screw Bone Evos [id number] - [id number] Explanted:Qty: 2 on 10/25/2023 by Fiorella Worley MD at [facility] Right: Ankle [employer]/Or tho [id number] / / [employer]/ Ortho 2.7mm 4.3mm 44mm Lock Self Retain Flat Head Long Bone Small Bone [id number] - [id number] Explanted:Qty: 1 on 10/25/2023 by Fiorella Worley MD at [facility] Right: Ankle [employer]/Or tho [id number] / / Procedures Procedure Name Priority Date/Time Associated Diagnosis Comments XR ANKLE LEFT 3 OR MORE VIEWS Schedule Routine, Read Routine (OP Routine) 12/26/2024 7:36 AM SENIOR BUSINESS PROCESS ANALYST 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, unspecified fracture morphology, subsequent encounter XR ANKLE LEFT 3 OR MORE VIEWS Schedule Routine, Read Routine (OP Routine) 11/07/2024 7:41 AM SENIOR BUSINESS PROCESS ANALYST 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, unspecified fracture morphology, subsequent encounter PAP AND HIGH RISK HPV, REFLEX TO GENOTYPING Routine 02/13/2024 9:40 AM CDT Health care maintenance SCREENING MAMMOGRAM BILATERAL W RONALDO Schedule Routine, Read Routine (OP Routine) 12/31/2023 2:12 PM SENIOR BUSINESS PROCESS ANALYST Screening mammogram, encounter for HEPATITIS C ANTIBODY STAT 02/22/2023 1:10 PM CDT COLONOSCOPY 09/15/2018 3:55 PM CDT from Last 3 Months or Most Recently Relevant to Health Maintenance Results * XR Ankle Left 3 or More Views (12/26/2024 7:36 AM SENIOR BUSINESS PROCESS ANALYST) Anatomical Region Laterality Modality Lower Extremities, Ankle Left Compute d Radiography 12/26/2024 7:44 AM SENIOR BUSINESS PROCESS ANALYST Impressions 12/26/2024 7:44 AM SENIOR BUSINESS PROCESS ANALYST 1. Healing distal tibia metaphysis fracture fixated with tibiotalocalcaneal nail arthrodesis. Electronically signed by: Max Garcias D.O. Narrative 12/26/2024 7:44 AM SENIOR BUSINESS PROCESS ANALYST EXAMINATION: XR ANKLE LEFT 3 OR MORE VIEWS HISTORY: FRACTURE FINDINGS: Comparison is made to 11/07/2024 radiograph. Retrograde tibiotalocalcaneal nail arthrodesis with integrated tibial and calcaneal screws appears intact. Additional lag screws in the distal tibia appear intact. Screw tracks from previously removed instrumentation. The construct spans a distal tibia metaphysis fracture which appears to be healing with periosteal reaction and progressive callus formation with slightly decreased conspicuity of the fracture line. Unchanged ununited distal fibular fracture without significant malalignment. Plantar calcaneal spur. Achilles insertional enthesophyte. Soft tissue thickening near the Achilles insertion, suggesting underlying Achilles tendinopathy. Mild soft tissue swelling. Procedure Note Max Garcias, DO - 12/26/2024 EXAMINATION: XR ANKLE LEFT 3 OR MORE VIEWS HISTORY: FRACTURE FINDINGS: Comparison is made to 11/07/2024 radiograph. Retrograde tibiotalocalcaneal nail arthrodesis with integrated tibial and calcaneal screws appears intact. Additional lag screws in the distal tibia appear intact. Screw tracks from previously removed instrumentation. The construct spans a distal tibia metaphysis fracture which appears to be healing with periosteal reaction and progressive callus formation with slightly decreased conspicuity of the fracture line. Unchanged ununited distal fibular fracture without significant malalignment. Plantar calcaneal spur. Achilles insertional enthesophyte. Soft tissue thickening near the Achilles insertion, suggesting underlying Achilles tendinopathy. Mild soft tissue swelling. IMPRESSION: 1. Healing distal tibia metaphysis fracture fixated with tibiotalocalcaneal nail arthrodesis. Electronically signed by: Max Garcias D.O. us Susan Malloy MD IMG XR PROCEDURES Final Re sult * XR Ankle Left 3 or More Views (11/07/2024 7:41 AM SENIOR BUSINESS PROCESS ANALYST) Anatomical Region Laterality Modality Lower Extremities, Ankle Left Compute d Radiography 11/07/2024 7:47 AM SENIOR BUSINESS PROCESS ANALYST Impressions 11/07/2024 7:47 AM SENIOR BUSINESS PROCESS ANALYST 1. Interval left tibiotalar and subtalar instrumented arthrodesis for management of comminuted nonunited distal left tibial fracture. 2. Unchanged nonunited distal left fibular fracture with interval removal of fixation implant. Electronically signed by: Karson Merino M.D. Narrative 11/07/2024 7:47 AM SENIOR BUSINESS PROCESS ANALYST EXAMINATION: XR ANKLE LEFT 3 OR MORE VIEWS HISTORY: Fracture follow-up FINDINGS: 3 view examination of the nonweightbearing left ankle is read with comparison to CT 09/21/2024. Interval changes of tibiotalar and subtalar arthrodesis for management of comminuted distal tibial fracture nonunion. The fracture is transfixed by a retrograde intramedullary nail with proximal and distal interlocking screws. The previously seen plate and screw constructs have been removed. There is an unchanged nonunited distal fibula fracture. 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 Distal Achilles enthesophyte and plantar calcaneal spur noted. There is thickening of the distal Achilles tendon and outline indicative of likely underlying tendinopathy. Procedure Note Damián Merino, Karson Bennett MD - 11/07/2024 EXAMINATION: XR ANKLE LEFT 3 OR MORE VIEWS HISTORY: Fracture follow-up FINDINGS: 3 view examination of the nonweightbearing left ankle is read with comparison to CT 09/21/2024. Interval changes of tibiotalar and subtalar arthrodesis for management of comminuted distal tibial fracture nonunion. The fracture is transfixed by a retrograde intramedullary nail with proximal and distal interlocking screws. The previously seen plate and screw constructs have been removed. There is an unchanged nonunited distal fibula fracture. 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 Distal Achilles enthesophyte and plantar calcaneal spur noted. There is thickening of the distal Achilles tendon and outline indicative of likely underlying tendinopathy. IMPRESSION: 1. Interval left tibiotalar and subtalar instrumented arthrodesis for management of comminuted nonunited distal left tibial fracture. 2. Unchanged nonunited distal left fibular fracture with interval removal of fixation implant. Electronically signed by: Karson Merino M.D. us Susan Malloy MD IMG XR PROCEDURES Final Re sult * Pap and High Risk HPV and Genotyping (Cytology Component) (02/13/2024 9:40 AM CDT) Thin prep (Pap test) 02/13/2024 9:40 AM CDT 02/13/2024 11:27 AM CDT Narrative PATHOLOGY [facility] - 02/20/2024 8:42 AM CDT EPIC results best viewed via link to PDF [facility] [place] [address] Note to Patients: This report may contain a detailed description of human tissue sent by a health care provider to the laboratory for pathologic evaluation. The content of this report is essential for diagnosis and may provide important critical findings. This information may be unfamiliar to patients to review without a medical professional present. It is advised that the patient review this report in the presence of a health care provider who can answer questions and explain the details. CYTOPATHOLOGY REPORT FINAL Patient Name: EILEEN FERMIN Gender: F : 1965 (Age: 58) Address: [address] [place] [id number] Hospital #: [id number] Service: UNKNOWN Location: Patient Type: [facility] SPECIMEN Taken: 02/13/2024 Received: 02/13/2024 Accessioned: 02/13/2024 Reported: 02/20/2024 Physician(s): Marsha Crowe M.D. FINAL INTERPRETATION SOURCE OF SPECIMEN Liquid based Thin Prep pap with HPV: STATEMENT OF ADEQUACY - Satisfactory for evaluation - Endocervical cells/transformation zone sample present GENERAL CATEGORIZATION: - Negative for squamous intraepithelial lesion or malignancy Comments (Normal-Negative for High Risk HPV) HPV HR 16- Not detected HPV HR 18-Not detected HPV HR non 16/18- Not detected Interpretive Data Nucleic acid amplification for detection of high-risk Human Papilloma virus (HPV) is performed by the Cristopher Gladys 6800 HPV test. This assay specifically detects HPV- 16 and HPV-18 genotypes. The following HPV genotypes are detected as high-risk HPV: HPV-31, 33, 35, 39, 45, 51, 52, 56, 58, 59, 66, and 68. This assay has been approved by the [place] Food and Drug Administration for detection of HPV in cervical specimens collected by a physician using an endocervical brush/spatula or cervical broom and placed in the ThinPrep Pap Test PreservCyt collection containers. The performance characteristics of this test have been verified by the [facility] laboratory. Correlate with reported cytology results, as applicable. Interpretive data last revised 23 andrea/02/20/2024 08:42 TATUM Rojas(ASCP) Report Electronically Reviewed and Signed Out By TATUM Rojas(ASCP) 02/20/2024 08:42:25 Cervicovaginal Cytology (Pap Test) Disclaimer: The Pap test is a screening test used to detect cervical cancer and its precursors; it is not a diagnostic procedure. False negative and false positive results do occur. Pap test results should be interpreted in the context of pertinent clinical information and biopsy results as indicated. CMS Clinical Laboratory Improvement Amendments (CLIA) mandate that cytologic and histologic results be correlated for laboratory director software quality assurance & improvement standards. FOR ALL HIGH-GRADE CASES we request submission of follow-up histological material and/or reports that have not been previously provided so that we may fulfill said required standards. Gross Description A. 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 Report Images and scanned documents, if included only viewable in PDF version The performance characteristics of some immunohistochemical stains, in-situ hybridization and fluorescence in-situ hybridization tests and immunophenotyping by flow cytometry cited in this report (if any) were determined by the Surgical Pathology Department at [facility] as part of an ongoing production quality analyst program and in compliance with federally mandated regulations drawn from the Clinical Laboratory Improvement Act of 1988 (CLIA '88). Some of these tests rely on the use of analyte specific reagents and are subject to specific labeling requirements by the [place] Food and Drug Administration. Such diagnostic tests may only be performed in a facility that is certified by the Department of Health and Human Services as a high complexity laboratory under CLIA '88. The FDA has determined that such clearance or approval is not necessary. This test is used for clinical purposes. It should not be regarded as investigational or for research. Nevertheless, federal rules concerning the medical use of analyte specific reagents require that the following disclaimer be attached to the report: This test was developed and its performance characteristics determined by the Surgical Pathology Department of [facility]. It has not been cleared or approved by the U. S. Food and Drug Administration. Marsha Grewal MD LAB CYTOLOGY ORDER DEEPAK Final Result PATHOLOGY [facility] 3rd Floor [place], [place] [phone] * Screening Mammogram Bilateral W Ronaldo (12/31/2023 2:12 PM SENIOR BUSINESS PROCESS ANALYST) Anatomical Region Laterality Modality Breast Bilateral Mammography Narrative 01/03/2024 3:05 PM SENIOR BUSINESS PROCESS ANALYST Mammogram Technique: Bilateral Digital Breast Tomosynthesis, Bilateral C-view 2D Screening mammogram. Views obtained: bilateral craniocaudal and bilateral mediolateral oblique. Computer Aided Detection was performed. Mammogram Findings: The present examination has been compared to prior imaging studies performed at [facility] on 07/08/2020, 07/09/2021 and 08/20/2022. There are scattered areas of fibroglandular density. There is no suspicious abnormality in either breast. Impression: There is no mammographic evidence of malignancy. Annual screening mammography is recommended. OVERALL FINAL ASSESSMENT: BI-RADS CATEGORY 1: Negative. Procedure Note Daphne Peoples MD - 01/03/2024 Mammogram Technique: Bilateral Digital Breast Tomosynthesis, Bilateral C-view 2D Screening mammogram. Views obtained: bilateral craniocaudal and bilateral mediolateral oblique. Computer Aided Detection was performed. Mammogram Findings: The present examination has been compared to prior imaging studies performed at [facility] on 07/08/2020, 07/09/2021 and 08/20/2022. There are scattered areas of fibroglandular density. There is no suspicious abnormality in either breast. Impression: There is no mammographic evidence of malignancy. Annual screening mammography is recommended. OVERALL FINAL ASSESSMENT: BI-RADS CATEGORY 1: Negative. us Self Screening Mammogram IMG MAMMO PROCEDURES Fi nal Result * Hepatitis C antibody (02/22/2023 1:10 PM CDT) Hep C Ab Nonreactive Nonreactive [facility] Comment:Antibodies to HCV no t detected. Does NOT exclude the possibility of recent exposure to HCV. Current interpretive data was last revised on 22 Blood 02/22/2023 1:10 PM CDT 02/22/2023 1:45 PM CDT us Notinfile Unknown LAB MICROBIOLOGY - GENERAL ORD ERABLES Final Result Performing Organization Address City/State/[facility] Co de Phone Number [facility] Department [place] [address] * COLONOSCOPY (09/15/2018 3:55 PM CDT) Anatomical Region Laterality Modality Other Narrative Procedure Note Carlos Alberto Todd MD - 09/15/2018 3:55 PM CDT GI ENDOSCOPY [facility] Patient Name: Eileen Fermin Procedure Date: 09/15/2018 3:55 PM Date of : 1965 Admit Type: Outpatient Age: 53 Gender: Female Attending MD: Carlos Alberto Todd MD Room: [facility] ENDOSCOPY ROOM 3 Note Status: Finalized Procedure: Colonoscopy Indications: Screening in patient at increased risk: Colorectal cancer in brother before age 60 Referring MD: Yissel Mosquera M.D. Providers: Carlos Alberto Todd MD Medicines: Monitored Anesthesia Care Complications: No immediate complications. Estimated Blood Loss: Estimated blood loss was minimal. Procedure: Pre-Anesthesia Assessment: - Immediately prior to administration ofmedications, the patient was re-assessed for adequacy to receive sedatives. - The risks and benefits of the procedure and the sedation options and risks were discussed with the patient. All questions were answered and informed consent was obtained. The benefits, risks and alternatives of theprocedure and sedation were discussed and informed consent was obtained. All questions were answered. Please referto the signed informed consent document in the medical record. The scope was passed under direct vision.The [id number] endoscope was introduced throughthe anus and advanced to the cecum, identified by appendiceal orifice and ileocecal valve. The colonoscopy was performed without difficulty. The patient tolerated the procedure well. The quality of the bowel preparation was excellent. The bowel preparation used was MoviPrep. Bowel prep was administered using a split dose. Findings: The perianal and digital rectal examinations were normal. The entire examined colon appeared normal on direct and retroflexion views. Impression: - The entire examined colon is normal on direct and retroflexion views. - No specimens collected. Recommendation: - Repeat colonoscopy in 5 years for screeningpurposes due to h/o colon cancer in brother below age 60yr. - Return to referring physician. Electronically signed by Carlos Alberto Todd MD Carlos Alberto Todd MD 09/15/2018 4:25:56 PM . Number of Addenda: 0 Note Initiated On: 09/15/2018 3:55 PM Recognized by the [place] [employer] for promoting quality in endoscopy Carlos Alberto Todd MD ENDOSCOPY PROCEDURES Final Re sult from Last 3 Months or Most Recently Relevant to Health Maintenance Insurance IDPA MEDICARE SOLUTIONS MEDICARE IDSD MEDICARE SOLUTIONS IDPA MEDICARE SOLUTIONS MEDICARE SOLUTIONS IDPA Advance Directives For more information, please contact: [phone] Documents on File Type Date Recorded Patient Audio Visual Aids Director Expl anation ADVANCE DIRECTIVE 02/17/2023 1:18 PM POWER OF TUBERCULOSIS SPECIALIST-MEDICAL * Full Code (Latest Code Status on File) Date Activated Date Inactivated Comments 06/21/2023 5:15 PM 2023 6:52 PM * Full Code Date Activated Date Inactivated Comments 02/05/2023 1:05 AM 02/15/2023 8:49 PM * Full Code Date Activated Date Inactivated Comments 12/04/2019 10:24 AM 12/04/2019 4:55 PM * Full Code Date Activated Date Inactivated Comments 09/15/2018 2:40 PM 09/15/2018 8:51 PM Care Teams Firmware Developer Relationship Specialty Start Date End Date Marvin Alcaraz MD [address] [facility] [address] [place] [address] PCP - General Internal Medicine 03/30/24 Fiorella Worley MD [address] [address] Referring Physician Orthopedic Surgery 09/14/24
--- OUTSIDE RECORDS SUMMARY | 2025-01-30 17:52 | XMS_ITS | Continuity of Care Document ---
Author Organization [facility] Address [address] [place] [address] Phone Care Team Providers Care District Superintendent Name Role Phone Pedro OD, Justin Unavailable Unavailable Procedures Procedure Date Eye Exam & Treatment Refraction No Charge Contact Lens Check No Charge Contact Lens Check No Charge Contact Lens Check Contact Lens Fitting Advance Directives Directive Yes / No Effective Date File Name No Information Encounters Encounter Description Practice Location Reason(s) For Visit Diagnoses Date Provider Providers Copied on Encounter [facility], [address] [place] [address] [address], [place], [place], [id number], tel:[phone] [facility] No Information 8-200 9 Pedro OD Justin. [address] [facility] , [address], [place], [address], . tel:[phone] [facility], [address] [place] [address] [address], [place], [place], [id number], [place] tel:[phone] [facility] No Information 1-200 7 Pedro OD Justin. [address] [facility] , [address], [place], [address], [place]. tel:[phone] [facility], [address] [place] [address] [address], [place], [place], [id number], tel:[phone] [facility] No Information 0-200 7 Pedro OD Justin. [address] [facility] , [address], [place], [address], [place]. tel:[phone] [facility], [address], [place], [place], [id number], tel:[phone] [facility] No Information Apr-1 3-200 7 Pedro OD Justin. [address] [facility] , [address], [place], [address], [place]. tel:[phone] [facility], [address], [place], [place], [id number], [place] tel:[phone] [facility] No Information Mar-2 8-200 7 Pedro OD Justin. On license of [facility] [facility] , [address], [place], [address], [place]. tel:[phone] Family History Family Member Type Diagnosis Age At Onset No Information Payers Payer name Insurance type Covered democrat ID Authoreribertoa tiedmund(s) Medicaid [facility] [id number] Social History Type Description Quantity Date Captured Comments Sex Female Smoking Status No Information Chief Complaint And Reason For Visit No Information Reason For Referral Reason For Referral No Information History Of Present Illness Encounter Date Complaint History Of Prese nt Illness No Information Functional Status Date Functional Assessmen t No Information Instructions Date Instruction Additional Infor mation No Information Assessments Type Assessment Date No Information Patient Care Teams Name Effective Dates (start - stop) Status Members No Information
--- OUTSIDE RECORDS SUMMARY | 2025-01-30 17:53 | XMS_ITS | Referral Summary ---
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, unspecified fracture morphology, subsequent encounter Discharge Disposition: Discharge to home or self care 12/26/2024 8:10 AM ELECTRICAL CONTROL ASSEMBLER Office Visit [facility] [address] [place] [address] [facility] 6th [place] [address] [place] [address] Susan Malloy MD 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, unspecified fracture morphology, subsequent encounter (Primary Dx) 11/20/2024 Telephone [facility] [address] [place] [address] Skyler Son MD 11/07/2024 7:30 AM ELECTRICAL CONTROL ASSEMBLER - 11/07/2024 11:59 PM ELECTRICAL CONTROL ASSEMBLER Hospital Encounter [facility] [address] [place] [address] Susan Malloy MD 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, unspecified fracture morphology, subsequent encounter (Primary Dx) from Last 3 Months Allergies No known active allergies Medications calcium [...] (02/04/2023): Added automatically from request for surgery [id number] Carpal tunnel syndrome, left 10/13/2021 Carpal tunnel syndrome, right 10/13/2021 Overview (10/13/2021): Added automatically from request for surgery [id number] Finger stiffness, left 10/13/2021 Overview (10/13/2021): Added automatically from request for surgery [id number] Sleep apnea 09/18/2021 03/16/2023 Family history of stroke 06/23/2021 Depressive disorder 02/20/2021 Gallstone 02/20/2021 Low back pain 02/20/2021 Osteoarthritis of knee 02/20/2021 Dupuytren's contracture of both hands 02/06/2021 Overview (02/06/2021): Added automatically from request for surgery [id number] Dupuytren's contracture of right hand 11/18/2020 Overview (11/18/2020): Added automatically from request for surgery [id number] Encounter for gynecological examination without abnormal finding [...] (11/30/2019): Added automatically from request for surgery [id number] Morbid obesity 11/30/2019 Overview (11/30/2019): Added automatically from request for surgery [id number] Intestinal malabsorption 11/30/2019 Overview (11/30/2019): Added automatically from request for surgery [id number] BMI 38.0-38.9,adult 07/17/2018 Abnormal cervical Papanicolaou smear [...] (02/04/2023): Added automatically from request for surgery [id number] Fracture deformity 02/04/2023 Upper respiratory infection 01/21/2023 03/16/2023 01/25/2024 Mass of soft tissue 06/11/2022 03/16/2023 01/25/20 24 Foot pain 06/02/2022 03/16/2023 01/25/2024 Coronavirus infection 05/20/20212023 Blepharitis 02/20/2021 01/25/2024 Cervical lymphadenopathy 02/20/202104/2024 Constipation 02/20/2021 01/25/2024 Dyspnea 02/20/2021 01/25/2024 Eruption due to drug 02/20/2021 024 Nausea and vomiting 02/20/2021 01/25/20 Symptoms involving urinary system 02/20/2021 01/25/2024 Dizziness 09/06/2018 01/25/2024 Excess skin of abdominal wall 11/02/2016 01/25/2024 Hypotension 02/04/2016 01/25/2024 Sensory disturbance 11/09/2014 01/25/20 24 Immunizations Immunization Administration Dates Next Due Influenza, Quadrivalent, Spl it, Preservative Free, Intramuscular 09/04/2021,09/15/2020,09/17/2019,10/04,10/04/2017,09/10/2015 Influenza, Trivalent, IM (MDV) 11/28/2012,2012 Influenza, Trivalent, Preser vative Free, Intramuscular 09/13/2014 Influenza, Unspecified 11/21/2022,08/25/2013 Pneumococcal Polysaccharide PPV23 10/04/2017 Tdap 02/04/2023 ZOSTER Recombinant 09/16/2020 Social History Tobacco Use Types Packs/Day Years [...] on file Legal Sex Female 10:02 AM ELECTRICAL CONTROL ASSEMBLER Gender Identity Not on file Sexual Orientation Straight 07/06/2021 8: 53 AM CDT Last Filed Vital Signs Vital Sign Reading Time Taken Comments Blood Pressure 112/54 09/25/2024 3:50 PM ELECTRICAL CONTROL ASSEMBLER Pulse 67 09/25/2024 3:50 PM ELECTRICAL CONTROL ASSEMBLER Temperature 36.2 C (97.2 F) 09/25/2024 12:55 PM ELECTRICAL CONTROL ASSEMBLER Respiratory Rate 9 09/25/2024 3:50 PM ELECTRICAL CONTROL ASSEMBLER Oxygen Saturation 93% 09/25/2024 3:30 PM ELECTRICAL CONTROL ASSEMBLER Inhaled Oxygen Concentration - - Weight 145.2 kg (320 lb) 09/25/2024 8:10 AM ELECTRICAL CONTROL ASSEMBLER Height 167.6 cm (5' 6 ) 01/22/2024 7:51 PM ELECTRICAL CONTROL ASSEMBLER Body Mass Index 51.65 01/22/2024 7:51 PM ELECTRICAL CONTROL ASSEMBLER Plan of Treatment Not on file Medical Devices Implanted Type Area [employer]os Executive Producer Device Identifier Shelf Expiration Date Model / Serial / Lot Nail [id number] Implanted:Qty: 1 on 10/25/2023 by Fiorella Worley MD at [facility] Nail Right: Ankle [employer] 07/26/2024 FRANCIS-1010-1 0210 / / [id number] Description:inactive Allosource Freeze Dried Chips 4-10mm Graft 30ml Bone Cancellous [id number] - [id number] Implanted:Qty: 1 on 06/21/2023 by Fiorella Worley MD at [facility] Other - see comments Right: Leg [employer] 01/28/2028 [id number] / [id number] / [id number] Description:Cancellous Chips Allosource Freeze Dried Chips 4-10mm Graft 30ml Bone Cancellous [id number] - [id number] - [id number] Implanted:Qty: 1 on 06/21/2023 by Fiorella Worley MD at [facility] Other - see comments Right: Leg [employer] 10/18/2027 [id number] / [id number] / [id number] Description:Cancellous Chips Synthes Lcp Combi 161c47c8.4mm 10 Hole Limit Contact Taper End Plate Bone 223.601 - [id number] Implanted:Qty: 1 on 06/21/2023 by Fiorella Worley MD at [facility] Plate Right: Leg Synthes I 223.601 / / Synthes 3.5mm 6mm 70mm 2.5mm Self Tap Small Hexagonal Socket Low Profile 204.870 - [id number] Implanted:Qty: 2 on 06/21/2023 by Fiorella Worley MD at [facility] Screw Right: Leg Synthes I 204.870 / / Synthes 3.5mm 6mm 42mm 2.5mm Self Tap Small Hexagonal Socket Low Profile 204.842 - [id number] Implanted:Qty: 1 on 06/21/2023 by Fiorella Worley MD at [facility] Screw Right: Leg Synthes I 204.842 / / Synthes 3.5mm 2.9mm 50mm Self Tap Lock Stardrive Conical Head T15 Full 212.121 - [id number] Implanted:Qty: 1 on 06/21/2023 by Fiorella Worley MD at [facility] Screw Right: Leg Synthes I 212.121 / / Synthes 3.5mm 2.9mm 85mm Self Tap Lock Stardrive Conical Head T15 Full 212.129 - [id number] Implanted:Qty: 1 on 06/21/2023 by Fiorella Worley MD at [facility] Screw Right: Leg Synthes I 212.129 / / Hardware Bilater al: Knee Synthes Schanz 5mm 170mm 50mm Blunt Trocar Point Xlong Screw External 294.55 - [id number] Implanted:Qty: 4 on 02/04/2023 by Torey Escalera MD at [facility] Leg Synthes I 294.55 / / Synthes Steinmann 5mm 5.5mm 275mm Central Thread Pin Fixation Large 293.890 - [id number] Implanted:Qty: 2 on 02/04/2023 by Torey Escalera MD at [facility] Bilater al: Leg Synthes I 293.890 / / Synthes 3.5mm 6mm 34mm 2.5mm Self Tap Small Hexagonal Socket Low Profile 204.834 - [id number] Implanted:Qty: 1 on 02/22/2023 at [facility] Left: Tibia Synthes I 204.834 / / Synthes Lcp Combi 112mm 6 Hole Fibula Left Distal Lateral Contour Plate 02.112.143 - [id number] Implanted:Qty: 1 on 02/22/2023 at [facility] Left: Tibia Synthes I 02.112.143 / / Synthes Lcp Combi 158mm 11 Hole Low Profile Limit Contact Taper Tip 241.447 - [id number] Implanted:Qty: 1 on 02/22/2023 at [facility] Left: Tibia Synthes I 241.447 / / Synthes 3.5mm 2.9mm 50mm Self Tap Lock Stardrive Conical Head T15 Full 212.121 - [id number] Implanted:Qty: 1 on 02/22/2023 at [facility] Left: Tibia Synthes I 212.121 / / Synthes 3.5mm 6mm 36mm 2.5mm Self Tap Small Hexagonal Socket Low Profile 204.836 - [id number] Implanted:Qty: 2 on 02/22/2023 by Fiorella Worley MD at [facility] Right: Tibia Synthes I 204.836 / / Synthes 3.5mm 6mm 24mm 2.5mm Self Tap Small Hexagonal Socket Low Profile 204.824 - [id number] Implanted:Qty: 1 on 02/22/2023 by Fiorella Worley MD at [facility] Right: Tibia Synthes I 204.824 / / Synthes 3.5mm 2.9mm 45mm Self Tap Lock Stardrive Conical Head T15 Full 212.119 - [id number] Implanted:Qty: 2 on 02/22/2023 by Fiorella Worley MD at [facility] Right: Tibia Synthes I 212.119 / / Synthes 3.5mm 6mm 26mm 2.5mm Self Tap Small Hexagonal Socket Low Profile 204.826 - [id number] Implanted:Qty: 1 on 02/22/2023 by Fiorella Worley MD at [facility] Right: Tibia Synthes I 204.826 / / Synthes 3.5mm 2.9mm 40mm Self Tap Lock Stardrive Conical Head T15 Full 212.117 - [id number] Implanted:Qty: 2 on 02/22/2023 by Fiorella Worley MD at [facility] Left: Tibia Synthes I 212.117 / / Synthes 3.5mm 6mm 22mm 2.5mm Self Tap Small Hexagonal Socket Low Profile 204.822 - [id number] Implanted:Qty: 1 on 02/22/2023 by Fiorella Worley MD at [facility] Right: Tibia Synthes I 204.822 / / Synthes 2.7mm 2.1mm 14mm Self Tap Lock St[employer]rive Thread Head Profile T8 202.214 - [id number] Implanted:Qty: 2 on 02/22/2023 by Fiorella Worley MD at [facility] Right: Tibia Synthes I 202.214 / / Synthes 3.5mm 6mm 30mm 2.5mm Self Tap Small Hexagonal Socket Low Profile 204.830 - [id number] Implanted:Qty: 1 on 02/22/2023 by Fiorella Worley MD at [facility] Right: Tibia Synthes I 204.830 / / Synthes 3.5mm 2.9mm 50mm Self Tap Lock Stardrive Conical Head T15 Full 212.121 - [id number] Implanted:Qty: 1 on 02/22/2023 by Fiorella Worley MD at [facility] Right: Tibia Synthes I 212.121 / / Synthes 3.5mm 2.9mm 26mm Self Tap Lock Stardrive Conical Head T15 Full 212.109 - [id number] Implanted:Qty: 1 on 02/22/2023 by Fiorella Worley MD at [facility] Right: Tibia Synthes I 212.109 / / Synthes 2.7mm 2.1mm 16mm Self Tap Lock Stardrive Thread Head Profile T8 202.216 - [id number] Implanted:Qty: 2 on 02/22/2023 by Fiorella Worley MD at [facility] Right: Tibia Synthes I 202.216 / / Synthes 3.5mm 6mm 14mm 2.5mm Self Tap Small Hexagonal Socket Low Profile 204.814 - [id number] Implanted:Qty: 1 on 02/22/2023 by Fiorella Worley MD at [facility] Right: Tibia Synthes I 204.814 / / Synthes 3.5mm 2.9mm 40mm Self Tap Lock Stardrive Conical Head T15 Full 212.117 - [id number] Implanted:Qty: 1 on 02/22/2023 by Fiorella Worley MD at [facility] Right: Tibia Synthes I 212.117 / / Synthes 3.5mm 6mm 40mm 2.5mm Self Tap Small Hexagonal Socket Low Profile 204.840 - [id number] Implanted:Qty: 1 on 02/22/2023 by Fiorella Worley MD at [facility] Right: Tibia Synthes I 204.840 / / Synthes 2.7mm 2.1mm 12mm Self Tap Lock Stardrive Thread Head Profile T8 202.212 - [id number] Implanted:Qty: 1 on 02/22/2023 by Fiorella Worley MD at [facility] Right: Tibia Synthes I 202.212 / / Synthes 2.7mm 2.1mm 12mm Self Tap Lock Stardrive Thread Head Profile T8 202.212 - [id number] Implanted:Qty: 1 on 02/22/2023 by Fiorella Worley MD at [facility] Left: Tibia Synthes I 202.212 / / Synthes Lcp Combi 210mm 15 Hole Low Profile Limit Contact Taper Tip 241.450 - [id number] Implanted:Qty: 1 on 02/22/2023 by Fiorella Worley MD at [facility] Left: Tibia Synthes I 241.450 / / [employer] Simplex P Full Dose Radiopaque Preblend Cement Bone Tobramycin 6197-9-001 - [id number] Implanted:Qty: 1 on 02/22/2023 by Fiorella Worley MD at [facility] Right: Tibia [employer] [id number] 07/21/2024 6197-9-001 / / [id number] Synthes 3.5mm 6mm 30mm 2.5mm Self Tap Small Hexagonal Socket Low Profile 204.830 - [id number] Implanted:Qty: 1 on 02/22/2023 by Fiorella Worley MD at [facility] Left: Tibia Synthes I 204.830 / / Synthes 2.7mm 2.1mm 16mm Self Tap Lock Stardrive Thread Head Profile T8 202.216 - [id number] Implanted:Qty: 1 on 02/22/2023 by Fiorella Worley MD at [facility] Left: Tibia Synthes I 202.216 / / Synthes 2.7mm 2.1mm 14mm Self Tap Lock Stardrive Thread Head Profile T8 202.214 - [id number] Implanted:Qty: 2 on 02/22/2023 by Fiorella Worley MD at [facility] Left: Tibia Synthes I 202.214 / / Synthes Lcp Combi 151mm 9 Hole Fibula Right Distal Lateral Contour Plate 02.112.148 - [id number] Implanted:Qty: 1 on 02/22/2023 by Fiorella Worley MD at [facility] Right: Tibia Synthes I 02.112.148 / / Synthes 3.5mm 6mm 12mm 2.5mm Self Tap Small Hexagonal Socket Low Profile 204.812 - [id number] Implanted:Qty: 1 on 02/22/2023 by Fiorella Worley MD at [facility] Right: Tibia Synthes I 204.812 / / Synthes 3.5mm 6mm 18mm 2.5mm Self Tap Small Hexagonal Socket Low Profile 204.818 - [id number] Implanted:Qty: 1 on 02/22/2023 by Fiorella Worley MD at [facility] Right: Tibia Synthes I 204.818 / / Synthes 3.5mm 2.9mm 45mm Self Tap Lock Stardrive Conical Head T15 Full 212.119 - [id number] Implanted:Qty: 3 on 02/22/2023 by Fiorella Worley MD at [facility] Left: Tibia Synthes I 212.119 / / Synthes 3.5mm 2.9mm 40mm Self Tap Lock Stardrive Conical Head T15 Full 212.117 - [id number] Implanted:Qty: 2 on 02/22/2023 at [facility] Left: Tibia Synthes I 212.117 / / Synthes 3.5mm 6mm 28mm 2.5mm Self Tap Small Hexagonal Socket Low Profile 204.828 - [id number] Implanted:Qty: 3 on 02/22/2023 by Fiorella Worley MD at [facility] Left: Tibia Synthes I 204.828 / / Synthes 3.5mm 6mm 14mm 2.5mm Self Tap Small Hexagonal Socket Low Profile 204.814 - [id number] Implanted:Qty: 3 on 02/22/2023 by Fiorella Worley MD at [facility] Left: Tibia Synthes I 204.814 / / Synthes 3.5mm 6mm 40mm 2.5mm Self Tap Small Hexagonal Socket Low Profile 204.840 - [id number] Implanted:Qty: 1 on 02/22/2023 at [facility] Left: Tibia Synthes I 204.840 / / Synthes 3.5mm 6mm 18mm 2.5mm Self Tap Small Hexagonal Socket Low Profile 204.818 - [id number] Implanted:Qty: 1 on 02/23/2023 at [facility] Left: Tibia Synthes I 204.818 / / [employer] r[employer] Screw Bone Cortical St Non Locking Evos 3.5x30mm Ss 64265548 - [id number] Implanted:Qty: 2 on 10/25/2023 by Fiorella Worley MD at [facility] Right: Ankle [employer]/ Ortho [id number] / / [employer] Evos 3.5mm 40mm Self Tap Cortex Screw Bone Sterile 41211180 - [id number] Implanted:Qty: 1 on 10/25/2023 by Fiorella Worley MD at [facility] Right: Ankle [employer]/ Ortho [id number] / / [employer] 2.7mm 4.3mm 42mm Lock Self Retain Flat Head Long Bone Small Bone 22180382 - [id number] Implanted:Qty: 1 on 10/25/2023 by Fiorella Worley MD at [facility] Right: Ankle [employer]/ Ortho [id number] / / [employer] Evos 3.5mm 44mm Self Tap Lock Screw Bone Sterile 06998235 - [id number] Implanted:Qty: 1 on 10/25/2023 by Fiorella Worley MD at [facility] Right: Ankle [employer]/ Ortho [id number] / / 5.0 Ft Screw Implanted:Qty: 2 on 10/25/2023 by Fiorella Worley MD at [facility] Right: Ankle [employer] FRNACIS-1010-1 424NS / / Description:inactive 5.0ft Screw Implanted:Qty: 2 on 10/25/2023 by Fiorella Worley MD at [facility] Right: Ankle [employer] FRANCIS-1010-1 475NS / / Description:inactive [employer] Evos 195x11.4x3.4mm 18.8x2.7mm 15 Hole Low Profile Variable Angle 16427269 - [id number] Implanted:Qty: 1 on 10/25/2023 by Fiorella Worley MD at [facility] Right: Ankle [employer]/ Ortho [id number] / / [employer] Evos Mini 2.7mm 4.5mm 12mm Self Tap Cortex T8 Screw Bone 46589730 - [id number] Implanted:Qty: 1 on 10/25/2023 by Fiorella Worley MD at [facility] Right: Ankle [employer]/ Ortho [id number] / / [employer] Evos 3.5mm 50mm Self Tap Cortex Screw Bone Sterile 34823216 - [id number] Implanted:Qty: 1 on 10/25/2023 by Fiorella Worley MD at [facility] Right: Ankle [employer]/ Ortho [id number] / / 5.0 Ft Screw Implanted:Qty: 1 on 09/25/2024 by Fiorella Worley MD at [facility] FRANCIS-1010-1 444NS / / Description:Inactive in the system. Misc code used. 5.0 Ft Screw 2 Implanted:Qty: 2 on 09/25/2024 by Fiorella Worley MD at [facility] FRANCIS-1010-1 424NS / / Description:Inactive in syst em. Misc code used 3 Implanted:Qty: 1 on 09/25/2024 by Fiorella Worley MD at [facility] FRANCIS-1010-2 675NS / / Description:Inactive in the system. Misc code used 5.0 Pt Screw 4 Implanted:Qty: 1 on 09/25/2024 by Fiorella Worley MD at [facility] FRANCIS-1010-2 670NS / / Description:Inactive in the system. Misc code used Nail, 010mm X 210mm Implanted:Qty: 1 on 09/25/2024 by Fiorella Worley MD at [facility] [employer] FRANCIS-1010-1 0210 / / Description:Inactive in the system [facility] code used Explanted Type Area [employer] Executive Producer Device Identifier Shelf Expiration Date Model / Serial / Lot Synthes 3.5mm 6mm 32mm 2.5mm Self Tap Small Hexagonal Socket Low Profile 204.832 - [id number] Explanted:Qty: 1 on 02/22/2023 at [facility] Left: Tibia Synthes I 204.832 / / Synthes 3.5mm 6mm 150mm 2.5mm Self Tap Low Profile Small Hexagonal Socket 204.750 - [id number] Explanted:Qty: 1 on 10/25/2023 at [facility] Right: Ankle Synthes I 204.750 / / [employer]/ Ortho Evos 3.5mm 10mm Self Tap Cortex Screw Bone Sterile 82387398 - [id number] Explanted:Qty: 1 on 10/25/2023 at [facility] Right: Ankle [employer]Or tho [id number] / / [employer]/ Ortho Evos 3.5mm 16mm Self Tap Cortex Screw Bone Sterile 05244224 - [id number] Explanted:Qty: 1 on 10/25/2023 at [facility] Right: Ankle [employer]Or tho [id number] / / [employer]/ Ortho 2.7mm 4.3mm 16mm Self Tap Lock T8 2mm Screw Bone Evos 28345856 - [id number] Explanted:Qty: 2 on 10/25/2023 by Fiorella Worley MD at [facility] Right: Ankle [employer]/Or tho [id number] / / [employer]/ Ortho 2.7mm 4.3mm 44mm Lock Self Retain Flat Head Long Bone Small Bone 49509389 - [id number] Explanted:Qty: 1 on 10/25/2023 by Fiorella Worley MD at [facility] Right: Ankle [employer]Or tho [id number] / / Procedures Procedure Name Priority Date/Time Associated Diagnosis Comments XR ANKLE LEFT 3 OR MORE VIEWS Schedule Routine, Read Routine (OP Routine) 12/26/2024 7:36 AM ELECTRICAL CONTROL ASSEMBLER 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, unspecified fracture morphology, subsequent encounter XR ANKLE LEFT 3 OR MORE VIEWS Schedule Routine, Read Routine (OP Routine) 11/07/2024 7:41 AM ELECTRICAL CONTROL ASSEMBLER 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, unspecified fracture morphology, subsequent encounter PAP AND HIGH RISK HPV, REFLEX TO GENOTYPING Routine 02/13/2024 9:40 AM CDT Health care maintenance SCREENING MAMMOGRAM BILATERAL W RONALDO Schedule Routine, Read Routine (OP Routine) 12/31/2023 2:12 PM ELECTRICAL CONTROL ASSEMBLER Screening mammogram, encounter for HEPATITIS C ANTIBODY STAT 02/22/2023 1:10 PM CDT COLONOSCOPY 09/15/2018 3:55 PM CDT from Last 3 Months or Most Recently Relevant to Health Maintenance Results * XR Ankle Left 3 or More Views (12/26/2024 7:36 AM ELECTRICAL CONTROL ASSEMBLER) Anatomical Region Laterality Modality Lower Extremities, Ankle Left Compute d Radiography 12/26/2024 7:44 AM ELECTRICAL CONTROL ASSEMBLER Impressions 12/26/2024 7:44 AM ELECTRICAL CONTROL ASSEMBLER 1. Healing distal tibia metaphysis fracture fixated with tibiotalocalcaneal nail arthrodesis. Electronically signed by: Max Garcias D.O. Narrative 12/26/2024 7:44 AM ELECTRICAL CONTROL ASSEMBLER EXAMINATION: XR ANKLE LEFT 3 OR MORE [...] 3 or More Views (11/07/2024 7:41 AM ELECTRICAL CONTROL ASSEMBLER) Anatomical Region Laterality Modality Lower Extremities, Ankle Left Compute d Radiography 11/07/2024 7:47 AM ELECTRICAL CONTROL ASSEMBLER Impressions 11/07/2024 7:47 AM ELECTRICAL CONTROL ASSEMBLER 1. Interval left tibiotalar and subtalar instrumented arthrodesis for management of comminuted nonunited distal left tibial fracture. 2. Unchanged nonunited distal left fibular fracture with interval removal of fixation implant. Electronically signed by: Karson Merino M.D. Narrative 11/07/2024 7:47 AM ELECTRICAL CONTROL ASSEMBLER EXAMINATION: XR ANKLE LEFT 3 OR MORE [...] CDT 02/13/2024 11:27 AM CDT Narrative PATHOLOGY [facility] - 02/20/2024 8:42 AM CDT EPIC results best viewed via link to PDF [facility] [place] [address] Note to Patients: This report may contain [...] Gender: F : 1965 (Age: 58) Address: [address] [place] [id number] Hospital #: [id number] Service: UNKNOWN Location: Patient Type: [facility] SPECIMEN Taken: 02/13/2024 Received: 02/13/2024 Accessioned: 02/13/2024 [...] this test have been verified by the [facility] Molecular Infectious Disease laboratory. Correlate with reported [...] clinical information and biopsy results as indicated. [facility] Clinical Laboratory Improvement Amendments (CLIA) mandate that cytologic and histologic results be correlated for laboratory microbiology quality control technician & improvement standards. FOR ALL HIGH-GRADE CASES [...] determined by the Surgical Pathology Department at [facility] as part of an ongoing production quality [...] determined by the Surgical Pathology Department of [facility]. It has not been cleared or approved by the [place]. [place]. Food and Drug Administration. Marsha Grewal MD LAB CYTOLOGY ORDER DEEPAK Final Result PATHOLOGY [facility] 3rd Floor [place], [place] [phone] * Screening Mammogram Bilateral W Ronaldo (12/31/2023 2:12 PM ELECTRICAL CONTROL ASSEMBLER) Anatomical Region Laterality Modality Breast Bilateral Mammography Narrative 01/03/2024 3:05 PM ELECTRICAL CONTROL ASSEMBLER Mammogram Technique: Bilateral Digital Breast Tomosynthesis, Bilateral C-view 2D Screening mammogram. Views obtained: bilateral craniocaudal and bilateral mediolateral oblique. Computer Aided Detection was performed. Mammogram Findings: The present examination has been compared to prior imaging studies performed at [facility] on 07/08/2020, 07/09/2021 and 08/20/2022. There [...] compared to prior imaging studies performed at [facility] on 07/08/2020, 07/09/2021 and 08/20/2022. There [...] CDT) Hep C Ab Nonreactive Nonreactive [facility] Comment:Antibodies to HCV no t detected. Does NOT exclude the possibility of recent exposure to HCV. Current interpretive data was last revised on 22 Blood 02/22/2023 1:10 PM CDT 02/22/2023 1:45 PM CDT us Notinfile Unknown LAB MICROBIOLOGY - GENERAL ORD ERABLES Final Result [facility] Department [place] [address] * COLONOSCOPY (09/15/2018 3:55 PM CDT) Anatomical Region Laterality Modality Other Narrative Procedure Note Carlos Alberto Todd MD - 09/15/2018 3:55 PM CDT [facility] Patient Name: Eileen Fermin Procedure Date: 09/15/2018 3:55 PM Date of : 1965 Admit Type: Outpatient Age: 53 Gender: Female Attending MD: Carlos Alberto Todd MD Room: [facility] ENDOSCOPY ROOM 3 Note Status: Finalized Procedure: [...] The scope was passed under direct vision.The CF [id number] endoscope was introduced throughthe anus and [...] On: 09/15/2018 3:55 PM Recognized by the [employer] [place] for promoting quality in endoscopy us Carlos Alberto Todd MD ENDOSCOPY PROCEDURES Final Re sult from Last 3 Months or Most Recently Relevant to Health Maintenance Insurance [employer] MEDICARE SOLUTIONS [facility] MEDICARE Address: [address] [address] [place] [address] MEDICARE [facility] MEDICARE SOLUTIONS [employer] MEDICARE SOLUTIONS MEDICARE [employer]IONS [facility] MEDICARE Address: [address] [address] [place] [address] [employer] Advance Directives For more information, please contact: [phone] Documents on File Type Date Recorded Patient Tube Room Cashier Expl anation ADVANCE DIRECTIVE 02/17/2023 1:18 PM POWER OF UPPER LINING CEMENTER-MEDICAL * Full Code (Latest Code Status on File) Date Activated Date Inactivated Comments 06/21/2023 5:15 PM 2023 6:52 PM * Full Code Date Activated Date Inactivated Comments 02/05/2023 1:05 AM 02/15/2023 8:49 PM * Full Code Date Activated Date Inactivated Comments 12/04/2019 10:24 AM 12/04/2019 4:55 PM * Full Code Date Activated Date Inactivated Comments 09/15/2018 2:40 PM 09/15/2018 8:51 PM Care Teams Piano Mover Relationship Specialty Start Date End Date Marvin Alcaraz MD [address] [address] PCP - General Internal Medicine 03/30/24 Fiorella Worley MD [address] [address] Referring Physician Orthopedic Surgery 09/14/24
--- OUTSIDE RECORDS SUMMARY | 2025-01-30 17:53 | XMS_ITS | Clinical Summary ---
Author Organization [facility] Address [address] [place] [address] Care Team Providers Care Channel Layer Name Role Phone Holly Velarde MD Primary Care Provider [phone] Source Comments [employer] [facility],non-owned Affiliates and Associated Physician Practices is amultiple site organization consisting of ambulatory clinics and hospital sitesin [place], [place], [place] and [place]. This disclosure is being madepursuant to the Care Everywhere program and may not contain all information available regarding this patient. Last updated 18.Kickit With Allergies No known active allergies Medications * Be aware that medications may not be up to date on this document. Alwaysverify current medications with the patient. Medication Sig Dispensed Refills Start Date End Date Status gabapentin (Neurontin) 400 MG capsuleIndications: Neuropathic Pain Take 400 mg by mouth 3 times daily as needed (NERVE PAIN). Indications: Neuropathic Pain Active oxyCODONE, immediate release, (Roxicodone) 10 MG tabletIndications:A cute Pain Take 10 mg by mouth every 8 hours as needed for Pain. Indications: Acute Pain Active cyclobenzaprine (Flexeril) 5 MG tabletIndications:M uscle Spasm Take 5 mg by mouth 2 times daily as needed (MUSCLE SPASMS). Indications: Muscle Spasm Active Sennosides (Senna) 8.6 MGIndications:CONST IPATION Take 2 capsules by mouth once daily as needed (CONSTIPATION). Indications: CONSTIPATION Active apixaban (Eliquis) 5 MG tabletIndications:P REVENT DVT IN AFIB Take 5 mg by mouth 2 times daily. Indications: PREVENT DVT IN AFIB Active multivitamin (Opurity) CHEW tabletIndications:S UPPLEMENT Take 1 tablet by mouth once daily. Indications: SUPPLEMENT Active Magnesium 400 MGIndications:SUPPL EMENT Take 400 mg by mouth once daily. Indications: SUPPLEMENT Active Qjwpzij-Xmutkmxdp-C itamin D (CALCIUM 1200+D3 PO)Indications:SUPP LEMENT Take 1 tablet by mouth once daily. Indications: SUPPLEMENT Active acetaminophen (Tylenol) 500 MG tabletIndications:F ever,Pain Take 1,000 mg by mouth every 6 hours as needed for Fever or Pain. Indications: Fever, Pain Active Social History Tobacco Use Types Packs/Day Years Used Date Smoking Tobacco: Never Assessed OASIS D0700: Social Isolation Answer Da te Recorded Frequency of experiencing loneliness or isolatio n Never 03/29/2023 OASIS A1250: Transportation Answer Date Recorded Lack of Transportation (Medical) No 03/29/2023 Lack of Transportation (Non-Medical) No 03/29/2023 Patient Unable or Declines to Respond No 03/29/2023 OASIS B1300: Health Literacy Answer Herbie e Recorded Frequency of needing help to read materials from doctor or pharmacy Rarely 03/29/2023 Sex and Gender Information Value Date Recorded Sex Assigned at Not on file Gender Identity Not on file Sexual Orientation Not on file Last Filed Vital Signs Vital Sign Reading Time Taken Comments Blood Pressure 106/64 03/22/2023 10:05 AM CDT Pulse 76 03/22/2023 10:05 AM CDT Temperature 36.3 C (97.4 F) 03/22/2023 10:05 AM CDT Respiratory Rate 16 03/22/2023 10:05 AM CDT Oxygen Saturation 99% 03/22/2023 10:05 AM CDT Inhaled Oxygen Concentration - - Weight - - Height - - Body Mass Index - - Plan of Treatment Health Maintenance Due Date Last Done Comments COLOGUARD (AGES 45-75) - COLON CA SCREENING 1965 COLON MONITORING 1965 COLONOSCOPY - COLON CA SCREENING 1965 CT COLONOGRAPHY - COLON CA SCREENING 1965 Colorectal Cancer Screening 1965 FIT - COLON CA SCREENING 1965 FLEX SIG - COLON CA SCREENING 1965 LIPID TESTING 1965 MAMMOGRAM 1965 PAP SMEAR 1965 HIV SCREENING 1979 HEPATITIS C SCREENING 06/18/1982 DTAP/TDAP/TD VACCINES (1 - Tdap) 1983 PNEUMOCOCCAL VACCINE 50+ (1 of 1 - PCV) 2014 ZOSTER VACCINE (1 of 2) 2014 COVID-19 VACCINE (1 - 2023-25 season) 2024 INFLUENZA VACCINE (#1) 2024 3, 10/08/2022, 09/04/2021, Additional history exists DEPRESSION SCREENING 11/21/2024 MEDICARE AWV CALENDAR YEAR 2024 Respiratory Syncytial Virus (RSV) Vaccine Pt: or over 60 yrs (1 - 1-dose 75+ series) 2039 HEPATITIS B VACCINE Aged Out No longe r eligible based on patient's age to complete this topic HIB VACCINE Aged Out No longer eligi ble based on patient's age to complete this topic HPV VACCINE Aged Out No longer eligi ble based on patient's age to complete this topic MENINGOCOCCAL (Group B) VACCINE SHARED DECISION-MAKING Aged Out No longer eligible based on patient's age to complete this topic MENINGOCOCCAL GROUPS A/C/Y/W VACCINE Aged Out No longer eligible based on patient's age to complete this topic Care Teams Channel Layer Relationship Specialty Start Date End Date Holly Velarde MD [address] [place] [address] [address] [place] [address] PCP - General Family Medicine 03/07/23
--- OUTSIDE RECORDS SUMMARY | 2025-01-30 17:53 | XMS_ITS | CONTINUITY OF CARE DOCUMENT ---
Author Name dolores, dolores Address Unknown Organization [facility] Address [address] [address] [place] [address] Phone [phone] Care Team Providers Care Artist Blacksmith Name Role Phone Yesenia Gabriel MD Unavailable [phone] BALJINDER DILL MD Unavailable BALJINDER DILL MD Unavailable [phone] PROBLEMS Condition Status Date Provider Notes Atrial fibrillation active Yesenia Gabriel MD Family History of CVA or Stroke: active ? Elton Gabriel MD Atrial fib paroxysmal completed - Yesenia Gabriel MD CVA active Yesenia Gabriel MD Hypotension active Yesenia Gabriel MD Hypercholesterolemia active Yesenia varela MD Sleep apnea completed - Yesenia Gabriel MD Preop cardiovasc. examination active Kristofer Gabriel MD Dizziness active Chastity Gaytan NP Cardiology examination active Yesenia ba MD SARS-associated coronavirus active Yesenia Gabriel MD Sleep apnea active Yesenia Gabriel MD shelter anticoagulant therapy active Maddie Raphael ONCOLOGY PHARMACIST ENCOUNTERS Date Type Provider Location Encounter Diag nosis - In-person encounter Office Visit Yesenia Gabriel MD [facility] Office - In-person encounter Office Visit Yesenia Gabriel MD [place] [facility] shelter anticoagulant therapy - In-person encounter Office Visit Yesenia Gabriel MD [place] [facility] - In-person encounter Office Visit Yesenia Gabriel MD [place] [facility] - In-person encounter Office Visit Yesenia Gabriel MD [place] [facility] - In-person encounter Office Visit Yesenia Gabriel MD [place] [facility] - In-person encounter Office Visit Yesenia Gabriel MD [place] [facility] - In-person encounter Office Visit Yesenia Gabriel MD [place] [facility] Sleep apnea - In-person encounter Office Visit Yesenia Gabriel MD [place] [facility] - In-person encounter Office Visit Yesenia Gabriel MD [place] [facility] SARS-associated coronavirus - In-person encounter Office Visit Yesenia Gabriel MD [place] [facility] - In-person encounter Office Visit Yesenia Gabriel MD [place] [facility] - In-person encounter Office Visit Yesenia Gabriel MD [place] [facility] Cardiology examination - In-person encounter Office Visit Yesenia Gabriel MD [place] [facility] - In-person encounter Office Visit Yesenia Gabriel MD [place] [facility] Dizziness - In-person encounter Office Visit Yesenia Gabriel MD [place] [facility] - In-person encounter Office Visit Yesenia Gabriel MD [place] [facility] - In-person encounter Office Visit Yesenia Gabriel MD [place] [facility] Preop cardiovasc. examination - In-person encounter Office Visit Yesenia Gabriel MD [place] [facility] - In-person encounter Office Visit Yesenia Gabriel MD [place] [facility] Atrial fib paroxysmalSleep apnea - In-person encounter Office Visit Yesenia Gabriel MD [place] [facility] Atrial fibrillationFamily History of CVA or Stroke:CVAHypotensionHype rcholesterolemia VITAL SIGNS Date Observation Value Provider blood pressure, diastolic 76 mm[Hg] Leonor nkLog blood pressure, systolic 107 mm[Hg] Myra og blood pressure, diastolic 76 mm[Hg] Br lloyd Guajardo blood pressure, systolic 107 mm[Hg] Karla ramirez Guajardo blood pressure, cuff size regular Br lloyd Guajardo pulse rate 78 /min Eunice Murdock s oxygen saturation, oximetry 97 % Eunice Guajardo height E&M 67 [in_i] Eunice Murdock s blood pressure, diastolic 70 mm[Hg] Leonor nkLogic blood pressure, systolic 108 mm[Hg] Myra kLogic respiratory rate E&M 16 /min Cathleen Bucky blood pressure, diastolic 70 mm[Hg] Va lerie Bucky blood pressure, systolic 108 mm[Hg] Brittney patricio Bucky pulse rate 61 /min Cathleen Bucky oxygen saturation, oximetry 98 % Cathleen Bucky height E&M 67 [in_i] Cathleen Bucky Body Mass Index (Ratio) 46.20 kg/m2 Luis Gabriel MD blood pressure, cuff size large Ke rri Gruenenfelder blood pressure, diastolic 80 mm[Hg] Ke rri Gruenenfelder blood pressure, systolic 122 mm[Hg] Deborah ri Audreynenfelder oxygen saturation, oximetry 100 % Nay Grnatashanebayronelder respiratory rate E&M 16 /min Nay G ruenenfelder pulse rate 83 /min Nay Grjosephe lder weight E&M 295 [lb_av] Nay Gruenenfe lder height E&M 67 [in_i] Nay Grnatashanenfe lder Body Mass Index (Ratio) 47.76 kg/m2 Luis Gabriel MD blood pressure, diastolic 59 mm[Hg] Leonor nkLogic blood pressure, systolic 109 mm[Hg] Myra kLogic blood pressure, diastolic 59 mm[Hg] Sa ra Verma blood pressure, systolic 109 mm[Hg] Mery a Verma respiratory rate E&M 19 /min Chela Si ms oxygen saturation, oximetry 98 % Chela Verma pulse rate 64 /min Chela Verma weight E&M 305 [lb_av] Chela Verma blood pressure, cuff size regular Sa ra Verma height E&M 67 [in_i] Chela Verma Body Mass Index (Ratio) 47.76 kg/m2 Enoch Keating blood pressure, diastolic 98 mm[Hg] Leonor nkLogdon blood pressure, systolic 129 mm[Hg] Myra kLogic blood pressure, diastolic 98 mm[Hg] Ros Bautista blood pressure, systolic 129 mm[Hg] Alvin Bautista blood pressure, cuff size large Ros Bautista respiratory rate E&M 16 /min Cole Bautista pulse rate 61 /min Maritza alvarenga oxygen saturation, oximetry 99 % Maritza Bautista weight E&M 305 [lb_av] Maritza alvarenga height E&M 67 [in_i] Maritza alvarenga Body Mass Index (Ratio) 47.76 kg/m2 Luis Gabriel MD blood pressure, diastolic 70 mm[Hg] Li nkLogic blood pressure, systolic 123 mm[Hg] Myra kLogic blood pressure, cuff size regular Pa ris John blood pressure, diastolic 70 mm[Hg] Pa ris Bag[place] blood pressure, systolic 123 mm[Hg] Par is John oxygen saturation, oximetry 98 % Mery Bag[place] respiratory rate E&M 16 /min Mery H cecy pulse rate 87 /min Mery John weight E&M 305 [lb_av] Mery [place] height E&M 67 [in_i] Mery [place] Body Mass Index (Ratio) 47.76 kg/m2 Enoch Keating blood pressure, diastolic 90 mm[Hg] Li nkLogic blood pressure, systolic 110 mm[Hg] Myra kLogic blood pressure, diastolic 90 mm[Hg] Sa ra Verma blood pressure, systolic 110 mm[Hg] Mery a Verma oxygen saturation, oximetry 98 % Chela Verma respiratory rate E&M 19 /min Chela Si ms pulse rate 60 /min Chela Verma blood pressure, cuff size large Sa ra Verma weight E&M 305 [lb_av] Chela Verma height E&M 67 [in_i] Chela Verma Body Mass Index (Ratio) 47.92 kg/m2 Luis Gabriel MD blood pressure, cuff size large Ke rri Gruenenfelder blood pressure, diastolic 80 mm[Hg] Ke rri Gruenenfelder blood pressure, systolic 120 mm[Hg] Ker ri Audreynebayroneldgurwinder oxygen saturation, oximetry 98 % Nay Grnatashanenfelder respiratory rate E&M 16 /min Nay G ruenenfelder pulse rate 59 /min Nay Chare lder weight E&M 306 [lb_av] Nay Shivamuenenfe lder height E&M 67 [in_i] Nay Shivamnatashanenfe lder Body Mass Index (Ratio) 48.08 kg/m2 Luis Gabriel MD blood pressure, diastolic 70 mm[Hg] Li nkLogic blood pressure, systolic 130 mm[Hg] Myra kLogic blood pressure, cuff size regular Cy isabelle Middleton blood pressure, diastolic 70 mm[Hg] Cy isabelle Middleton blood pressure, systolic 130 mm[Hg] Reyna orlando Middleton pulse rate 69 /min Marilyn rainey respiratory rate E&M 16 /min Marilyn Middleton oxygen saturation, oximetry 98 % Marilyn Middleton weight E&M 307 [lb_av] Marilyn Anshubel l height E&M 67 [in_i] Marilyn Anshubel l Body Mass Index (Ratio) 47.29 kg/m2 Luis Gabriel MD blood pressure, diastolic 73 mm[Hg] Li nkLogic blood pressure, systolic 126 mm[Hg] Myra kLogic blood pressure, diastolic 73 mm[Hg] Ch astity Anya blood pressure, systolic 126 mm[Hg] Veronica stity Anya oxygen saturation, oximetry 98 % Chastity Anya pulse rate 58 /min Chastity Anya respiratory rate E&M 16 /min Chastit y Anya weight E&M 302 [lb_av] Chastity Anya height E&M 67 [in_i] [facility] (Ratio) 47.14 kg/m2 Luis Gabriel MD blood pressure, cuff size regular Cy isabelle Middleton blood pressure, diastolic 70 mm[Hg] Cy isabelle Middleton blood pressure, systolic 132 mm[Hg] Reyna orlando Kane pulse rate 74 /min Marilyn Brasherbel l oxygen saturation, oximetry 98 % Marilyn Middleton respiratory rate E&M 16 /min Marilyn Middleton weight E&M 301 [lb_av] Marilyn Anshubel l height E&M 67 [in_i] Marilyn Campbel l Body Mass Index (Ratio) 47.14 kg/m2 Luis Gabriel MD blood pressure, cuff size large Ke rri Shivamuenenfmarie blood pressure, diastolic 68 mm[Hg] Ke rri Gruenenfelder blood pressure, systolic 98 mm[Hg] Deborah Gross oxygen saturation, oximetry 98 % Nay Gross respiratory rate E&M 16 /min Nay hagan pulse rate 63 /min Nay valentine weight E&M 301 [lb_av] Nay Amin lder height E&M 67 [in_i] Nay Amin lder blood pressure, resting No Tons [facility] respiratory rate E&M 16 /min [facility] blood pressure, diastolic 62 mm[Hg] To [facility] blood pressure, systolic 110 mm[Hg] Ton [facility] pulse rate 61 /min [facility] oxygen saturation, oximetry 98 % [facility] Body Mass Index (Ratio) 42.91 kg/m2 Tons [facility] weight in kilograms E&M 124.28 kg Tons [facility] weight E&M 274 [lb_av] [facility] height E&M 67 [in_i] [facility] height in centimeters E&M 170.18 cm To [facility] Body Mass Index (Ratio) 38.21 kg/m2 Bartolo [facility] blood pressure, diastolic 62 mm[Hg] [facility] blood pressure, systolic 100 mm[Hg] [facility], [facility]ximetry 99 % [facility] respiratory rate E&M 16 /min [facility] pulse rate 60 /min [facility] weight E&M 244 [lb_av] [facility] height E&M 67 [in_i] [facility] Body Mass Index (Ratio) 38.37 kg/m2 [facility] blood pressure, diastolic 70 mm[Hg] Justo [facility] blood pressure, systolic 110 mm[Hg] [facility], oximetry 99 % [facility] respiratory rate E&M 16 /min [facility] 67 /min [employer] [place] weight E&M 245 [lb_av] [employer] [place] height E&M 67 [in_i] [facility] Body Mass Index (Ratio) 40.40 kg/m2 Luis Gabriel MD blood pressure, diastolic 82 mm[Hg] Da dwayne Prakash blood pressure, systolic 132 mm[Hg] Dac ia Prakash oxygen saturation, oximetry 96 % Linda Prakash respiratory rate E&M 16 /min Linda V oss pulse rate 83 /min Linda Prakash weight E&M 258 [lb_av] Linda Prakash height E&M 67 [in_i] Linda Prakash Body Mass Index (Ratio) 40.75 kg/m2 Luis Gabriel MD blood pressure, diastolic 74 mm[Hg] Braulio Remy blood pressure, systolic 118 mm[Hg] Eloina Remy oxygen saturation, oximetry 98 % David Remy respiratory rate E&M 20 /min Isatu Remy pulse rate 67 /min David Se nayan weight E&M 260.2 [lb_av] David Gene lenka height E&M 67 [in_i] David Saez nayan Body Mass Index (Ratio) 41.97 kg/m2 Luis Gabriel MD blood pressure, cuff size regular Ke hamilton Gross blood pressure, diastolic 74 mm[Hg] Sylvain rrchristy Gross blood pressure, systolic 119 mm[Hg] Deborah Gross oxygen saturation, oximetry 98 % Nay Gross respiratory rate E&M 16 /min Nay hagan pulse rate 75 /min Nay bauerer weight E&M 268 [lb_av] Nay bauerer height E&M 67 [in_i] Nay Amin lder blood pressure, diastolic 70 mm[Hg] Braulio Remy blood pressure, systolic 124 mm[Hg] Eloina Remy pulse rate 54 /min David spicer oxygen saturation, oximetry 98 % David Remy respiratory rate E&M 18 /min Isatu Remy Body Mass Index (Ratio) 42.94 kg/m2 Sarah Remy weight E&M 274.2 [lb_av] David og blood pressure, diastolic 74 mm[Hg] Braulio Remy blood pressure, systolic 133 mm[Hg] Eloina Remy pulse rate 65 /min David spicer oxygen saturation, oximetry 97 % David Remy respiratory rate E&M 16 /min Isatu Remy Body Mass Index (Ratio) 42.69 kg/m2 Sarah Remy weight E&M 272.6 [lb_av] David og blood pressure, diastolic 60 mm[Hg] Sylvain kristinai Ginny blood pressure, systolic 106 mm[Hg] Deborah ri Ginny pulse rate 79 /min Nay bauerer oxygen saturation, oximetry 98 % Nay Gross respiratory rate E&M 16 /min Nay hagan Body Mass Index (Ratio) 42.28 kg/m2 Doran i Ginny weight E&M 270 [lb_av] Nay Amin lder height E&M 67 [in_i] Nay Eloisa lder ALLERGIES No Known Drug Allergies RESULTS Date Observation Value Provider Reference Range Interpretation Location 05/28 free thyroxine index 2.3 LinkLog[facility] 1.2-4.9 05/28 triiodothyronine resin uptake 30 % [facility] 24-39 05/28 thyroxine, serum, total 7.5 ug/dL [facility] 4.5-12.0 05/28 thyroid stimulating hormone, serum 2.840 u[IU]/mL [facility] 0.450-4.50 0 05/28 magnesium, serum 2.2 mg/dL [facility] 1.6-2.3 05/28 lipoprotein, beta, serum, point, quantitative, calculated 92 mg/dL [facility] 0-99 05/28 HDL cholesterol, serum 67 mg/dL [facility] >39 05/28 triglyceride, serum, random 97 mg/dL [facility] 0-149 05/28 cholesterol, serum 176 mg/dL [facility] [id number] 5338/0 7/08 alanine aminotransferase (SGPT), serum 13 1/L [facility] 0-32 05/28 aspartate aminotransferase (SGOT), serum 19 1/L [facility] 0-40 05/28 alkaline phosphatase, serum 105 1/L [facility] 48-121 05/28 bilirubin, serum, total 0.4 mg/dL [facility] 0.0-1.2 05/28 albumin/globulin ratio, serum 1.5 [facility] 1.2-2.2 05/28 globulin, serum 2.5 [facility] 1.5-4.5 05/28 albumin, serum 3.8 g/dL [facility] 3.8-4.9 05/28 protein, total, serum 6.3 g/dL [facility] 6.0-8.5 05/28 calcium, serum 9.1 mg/dL [facility] 8.7-10.2 05/28 carbon dioxide, venous blood 23 mmol/L [facility] 20-29 05/28 chloride, serum 106 mmol/L [facility] 96-106 05/28 potassium, serum 4.9 mmol/L [facility] 3.5-5.2 05/28 sodium, serum 142 mmol/L [facility] 622-001 4097/0 7/08 urea nitrogen/creatinin e ratio, serum 18 [facility] 9-23 05/28 eGFR if 113 mL/min/{1.73 _m2} [facility]ic >59 05/28 eGFR if not 98 mL/min/{1.73 _m2} Link[facility]ic >59 05/28 creatinine, serum 0.68 mg/dL [facility] 0.57-1.00 05/28 urea nitrogen, blood 12 mg/dL [facility] 6-24 05/28 blood glucose, random 77 mg/dL [facility] 65-99 12/19 hemoglobin A1C, blood, as % of total hemoglobin 5.1 % [facility] 4.8-5.6 12/19 prothrombin time (patient) 11.0 s [facility] 9.1-12.0 12/19 international normalized ratio (INR) 1.0 [facility] 0.9-1.2 12/19 lipoprotein, beta, serum, point, quantitative, calculated 48 mg/dL [facility] 0-99 12/19 HDL cholesterol, serum 61 mg/dL [facility] >39 12/19 triglyceride, serum, random 70 mg/dL [facility] 0-149 12/19 cholesterol, serum 123 mg/dL [facility] 402-166 3594/0 1/29 basophil count, absolute 0.0 x10E3/uL [facility] 0.0-0.2 12/19 Eosinophil Absolute Count 0.1 X10E3/UL [facility] 0.0-0.4 12/19 monocyte count, blood, automated 0.3 X10E3/UL [facility] 0.1-0.9 12/19 lymphocyte count, blood, automated 1.4 X10E3/UL [facility] 0.7-3.1 12/19 Absolute Neutrophils 2.1 X10E3/UL [facility] 1.4-7.0 12/19 basophils as percent of blood leukocytes 1 % LinkLogic Not Estab. 12/19 eosinophils as percent of blood leukocytes 3 % [facility] Not Estab. 12/19 monocytes as percent of blood leukocytes 8 % [facility] Not Estab. 12/19 lymphocytes as percent of blood leukocytes 35 % [facility]ic Not Estab. 12/19 neutrophils as percent of blood leukocytes 53 % [facility] Not Estab. 12/19 platelet count 313 X10E3/UL [facility] 836-454 0249/0 1/29 red blood cell distribution width 11.9 % [facility] 11.7-15.4 12/19 mean corpuscular hemoglobin concentration, RBC 33.8 G/DL [facility] 31.5-35.7 12/19 mean corpuscular hemoglobin, RBC 31.6 pg [facility]ic 26.6-33.0 12/19 mean corpuscular volume, RBC 94 fL [facility] 79-97 12/19 hematocrit, blood 40.2 % [facility] 34.0-46.6 12/19 hemoglobin, blood 13.6 g/dL [facility] 11.1-15.9 12/19 erythrocyte (RBC) count 4.30 X10E6/UL [facility] 3.77-5.28 12/19 leukocyte count, blood 4.0 X10E3/UL [facility] 3.4-10.8 12/19 alanine aminotransferase (SGPT), serum 10 1/L [facility] 0-32 12/19 aspartate aminotransferase (SGOT), serum 16 1/L [facility] 0-40 12/19 alkaline phosphatase, serum 100 1/L [facility] 39-117 12/19 bilirubin, serum, total 0.4 mg/dL [facility] 0.0-1.2 12/19 albumin/globulin ratio, serum 1.5 [facility] 1.2-2.2 12/19 globulin, serum 2.6 [facility] 1.5-4.5 12/19 albumin, serum 3.8 g/dL [facility] 3.8-4.9 12/19 protein, total, serum 6.4 g/dL [facility] 6.0-8.5 12/19 calcium, serum 8.7 mg/dL [facility] 8.7-10.2 12/19 carbon dioxide, venous blood 26 mmol/L [facility] 20-29 12/19 chloride, serum 105 mmol/L [facility] 96-106 12/19 potassium, serum 4.5 mmol/L [facility] 3.5-5.2 12/19 sodium, serum 144 mmol/L [facility] 963-379 9066/0 1/29 urea nitrogen/creatinin e ratio, serum 11 [facility] 9-23 12/19 eGFR if 94 mL/min/{1.73 _m2} LinkLogic >59 12/19 eGFR if not 81 mL/min/{1.73 _m2} Link[facility]ic >59 12/19 creatinine, serum 0.81 mg/dL [facility] 0.57-1.00 12/19 urea nitrogen, blood 9 mg/dL [facility] 6-24 12/19 blood glucose, random 92 mg/dL [facility] 65-99 coagulation managed by Bennett Rain RN international normalized ratio (INR) 2.4 Marilyn Middleton Normal prothrombin time (patient) 29.4 s Marilyn Middleton 08/09 coagulation managed by Gali eKlley 08/09 international normalized ratio (INR) 1.7 Marilyn Middleton Normal 08/09 prothrombin time (patient) 20.5 s Marilyn Middleton 07/26 coagulation managed by Bennett Rain RN 07/26 international normalized ratio (INR) 1.6 Nay Gross Normal 07/26 prothrombin time (patient) 18.8 s Nay Gross 06/27 coagulation managed by Bennett Rain RN 06/27 international normalized ratio (INR) 2.6 Marilyn Middleton Normal 06/27 prothrombin time (patient) 31.0 s Marilyn Middleton 06/20 coagulation managed by Gali Kelley 06/20 international normalized ratio (INR) 2.0 Marilyn Middleton Normal 06/20 prothrombin time (patient) 23.4 s Marilyn Middleton 06/13 coagulation managed by Bennett Rain RN 06/13 international normalized ratio (INR) 1.4 Nay Langleycorey Normal 06/13 prothrombin time (patient) 16.3 s Nay Langleymarthaer 05/08 coagulation managed by Bennett Rain RN 05/08 international normalized ratio (INR) 2.3 Linda Prakash Normal 05/08 prothrombin time (patient) 27.6 s Linda Prakash 04/10 coagulation managed by Bennett Rain RN 04/10 prothrombin time (patient) 35.3 s Leroy Tanner 04/10 international normalized ratio (INR) 2.9 Leroy Tanner Normal 03/13 coagulation managed by Bennett Rain RN 03/13 international normalized ratio (INR) 2.5 Linda Prakash Normal 03/13 prothrombin time (patient) 30.6 s Linda Prakash 02/13 coagulation managed by Bennett Rain RN 02/13 international normalized ratio (INR) 3.1 Linda Prakash Normal 02/13 prothrombin time (patient) 37.0 s Linda Prakash 01/16 coagulation managed by Bennett Rain RN 01/16 international normalized ratio (INR) 2.3 Linda Prakash Normal 01/16 prothrombin time (patient) 27.4 s Linda Prakash 12/07 coagulation managed by Bennett Rain RN 12/07 international normalized ratio (INR) 2.4 Linda Prakash Normal 12/07 prothrombin time (patient) 28.8 s Linda Prakash 11/23 coagulation managed by Bennett Rain RN 11/23 international normalized ratio (INR) 1.6 Linda Prakash Normal 11/23 prothrombin time (patient) 19.7 s Linda Prakash 12/27 coagulation managed by Bennett Rain RN 12/27 international normalized ratio (INR) 2.4 Linda Prakash Normal 12/27 prothrombin time (patient) 28.6 s Linda Prakash 12/12 coagulation managed by Sarah Eubanks RN 12/12 international normalized ratio (INR) 1.7 Linda Prakash Normal 12/12 prothrombin time (patient) 20.0 s Linda Prakash coagulation managed by Bennett Rain RN international normalized ratio (INR) 2.8 Nay Audreynebayronelder Normal prothrombin time (patient) 33.2 s Nay Gruenenfelder coagulation managed by Bennett Rain RN international normalized ratio (INR) 1.6 [employer] [place] Normal prothrombin time (patient) 18.6 s Chanel Payne coagulation managed by Bennett Rain RN international normalized ratio (INR) 4.6 Linda Prakash Normal prothrombin time (patient) 54.9 s Linda Prakash 08/18 coagulation managed by Sarah Eubanks RN 08/18 international normalized ratio (INR) 4.3 Linda Prakash Normal 08/18 prothrombin time (patient) 51.1 s Linda Prakash 08/11 coagulation managed by Sarah Eubanks RN 08/11 international normalized ratio (INR) 3.5 Linda Prakash Normal 08/11 prothrombin time (patient) 41.7 s Linda Prakash 08/04 coagulation managed by Bennett Rain RN 08/04 international normalized ratio (INR) 3.7 Bennett Rain RN Normal 08/04 prothrombin time (patient) 35.9 s Bennett Rain RN 07/28 coagulation managed by Bennett Rain RN 07/28 international normalized ratio (INR) 2.1 Bnenett Rain RN Normal 07/28 prothrombin time (patient) 23.1 s Bennett Rain RN 07/08 coagulation managed by Sarah Eubanks RN 07/08 international normalized ratio (INR) 3.9 Linda Prakash Normal 07/08 prothrombin time (patient) 47.1 s Linda Prakash 06/10 coagulation managed by Bennett Rain RN 06/10 international normalized ratio (INR) 2.8 Linda Prakash Normal 06/10 prothrombin time (patient) 33.6 s Linda Prakash 05/13 coagulation managed by Bennett Rain RN 05/13 international normalized ratio (INR) 2.2 Bennett Rain RN Normal 05/13 prothrombin time (patient) 26.5 s Bennett Rain RN 04/06 coagulation managed by Bennett Rain RN 04/06 international normalized ratio (INR) 3.8 Linda Prakash Normal 04/06 prothrombin time (patient) 46.0 s Linda Prakash 03/09 coagulation managed by Bennett Rain RN 03/09 international normalized ratio (INR) 2.6 Linda Prakash Normal 03/09 prothrombin time (patient) 30.7 s Linda Prakash 02/23 coagulation managed by Bennett Rain RN 02/23 international normalized ratio (INR) 1.6 Tala Eubanks Normal 02/23 prothrombin time (patient) 19.1 s Tala Eubanks 01/11 international normalized ratio (INR) 2.0 Linda Prakash Normal 01/11 prothrombin time (patient) 24.4 s Linda Prakash 12/15 coagulation managed by Bennett Rain RN 12/15 international normalized ratio (INR) 2.9 Linda Prakash Normal 12/15 prothrombin time (patient) 34.9 s Linda Prakash 01/04 coagulation managed by Tala Lbaoymery RN 01/04 international normalized ratio (INR) 2.4 Linda Prakash Normal 01/04 prothrombin time (patient) 29.1 s Linda Prakash 12/06 coagulation managed by Bennett Rain RN 12/06 international normalized ratio (INR) 2.5 Linda Prakash Normal 12/06 prothrombin time (patient) 29.8 s Linda Prakash 11/22 coagulation managed by Bennett Rain RN 11/22 international normalized ratio (INR) 1.6 Liliana Marrero Normal 11/22 prothrombin time (patient) 19.5 s Liliana Marrero coagulation managed by Bennett Rain RN international normalized ratio (INR) 2.0 Nay Bener Normal prothrombin time (patient) 24.3 s Nay Bener 08/11 coagulation managed by Bennett Rain RN 08/11 international normalized ratio (INR) 1.5 Liliana Marrero Normal 08/11 prothrombin time (patient) 18.6 s Liliana Marrero 07/14 coagulation managed by Bennett Rain RN 07/14 international normalized ratio (INR) 2.1 Liliana Marrero Normal 07/14 prothrombin time (patient) 25.0 s Liliana Marrero 06/16 coagulation managed by Bennett Rain RN 06/16 international normalized ratio (INR) 2.5 Liliana Marrero Normal 06/16 prothrombin time (patient) 30.5 s Liliana Marrero 05/20 thyroid stimulating hormone, serum 2.200 ??IU/ML [facility] 0.270 - 4.200 05/20 urea nitrogen/creatinin e ratio, serum 14.3 [facility] - 05/20 Estimated Glomerular Filtration Rate (calc) 93.8 (?) [facility] 59.0 - 05/20 chloride, serum 106.0 mmol/L [facility] 98.0 - 107.0 05/20 potassium, serum 4.5 mmol/L [facility] 3.5 - 5.1 05/20 sodium, serum 145.0 mmol/L [facility] 136.0 - 145.0 05/20 creatinine, serum 0.7 [facility] 05/20 carbon dioxide, venous blood 29.0 mmol/L [facility] 22.0 - 29.0 05/20 calcium, serum 9.6 mg/dL [facility] 8.6 - 10.2 05/20 urea nitrogen, blood 10.0 mg/dL [facility] 6.0 - 20.0 05/20 blood glucose, random 92.0 mg/dL [facility] 74.0 - 99.0 05/20 red blood cell distribution width, size density 48.0 fL [facility] 05/20 immature granulocytes, percentage of total cells, blood 0.0 % [facility] 05/20 nucleated red blood cells as percent of blood leukocytes 0.0 % [facility] 05/20 red blood cell (erythrocyte) count, per high power field 0.0 10*3/UL [facility] 05/20 eosinophils as percent of blood leukocytes 2.1 % [facility] 05/20 neutrophils as percent of blood leukocytes 63.5 % [facility] 05/20 Absolute Neutrophils 2.7 CELLS/UL [facility] 1.5 - 7.8 05/20 basophils as percent of blood leukocytes 0.7 % [facility] 05/20 Absolute Basophils 0.0 CELLS/UL [facility] 0.0 - 0.2 05/20 monocytes as percent of blood leukocytes 8.8 % [facility] Monocytes 0.4 CELLS/UL [facility] 0.2 - 1.0 05/20 lymphocytes as percent of blood leukocytes 24.9 % [facility] 05/20 Absolute Lymphocytes 1.1 CELLS/UL [employer] 0.9 - 3.9 05/20 mean platelet volume 10.0 (?) [facility] - 05/20 platelet count 281.0 THOUSAND/UL [facility] 100.0 - 400.0 05/20 mean corpuscular hemoglobin concentration, RBC 30.7 G/DL [facility] 31.0 - 38.0 Low 05/20 mean corpuscular hemoglobin, RBC 30.3 pg [employer] 25.0 - 35.0 05/20 mean corpuscular volume, RBC 98.8 fL [facility] 75.0 - 100.0 05/20 hematocrit, blood 42.4 % [facility] 35.0 - 55.0 05/20 hemoglobin, blood 13.0 g/dL [facility] 11.5 - 16.5 05/20 erythrocyte count, whole blood 4.3 MILLION/UL [facility] 3.5 - 5.5 05/19 coagulation managed by Bennett Rain RN 05/19 international normalized ratio (INR) 2.2 Nay Gross Normal 05/19 prothrombin time (patient) 26.8 s Nay Grmarthaer 05/05 coagulation managed by Tala Rebollar RN 05/05 international normalized ratio (INR) 1.8 Liliana Marrero Normal 05/05 prothrombin time (patient) 21.2 s Liliana Marrero 04/21 coagulation managed by Bennett Rain RN 04/21 international normalized ratio (INR) 1.6 David Millsenson Normal 04/21 prothrombin time (patient) 18.9 s David Remy 04/07 coagulation managed by Bennett Rain RN 04/07 international normalized ratio (INR) 2.1 David Remy Normal 04/07 prothrombin time (patient) 24.9 s David Remy 03/29 coagulation managed by Bennett Rain RN 03/29 international normalized ratio (INR) 1.5 Nay Grcorey Normal 03/29 prothrombin time (patient) 17.9 s Nay Ginny 03/15 coagulation managed by Bennett Rain RN 03/15 international normalized ratio (INR) 1.9 Nay Gross Normal 03/15 prothrombin time (patient) 22.8 s Nay Contreraser 03/01 coagulation managed by Bennett Rain RN 03/01 international normalized ratio (INR) 1.5 Nay Gross Normal 03/01 prothrombin time (patient) 18.1 s Nay Contreraser 02/15 coagulation managed by Bennett Rain RN 02/15 international normalized ratio (INR) 2.7 David Remy Normal 02/15 prothrombin time (patient) 32.0 s David Millsenson 02/08 coagulation managed by Bennett Rain RN 02/08 international normalized ratio (INR) 2.7 David Millsenson Normal 02/08 prothrombin time (patient) 32.5 s David Millsenson 02/03 international normalized ratio (INR) 1.6 Bennett Rain RN Low 02/03 prothrombin time (patient) 18.9 s Nay Gross HISTORY OF MEDICATION USE Medication Status Instructions Dates Provider Indications Com emily Eliquis 5 mg tablet active TAKE 1 TABLET BY MOUTH TWICE DAILY Isis Sharp gabapentin 600 mg tablet active one pill TID Cathleen Bucky Linzess 145 mcg capsule active 1 pill daily Cathleen Bucky montelukast 10 mg tablet active 1 pill daily Cathleen Bucky Nexletol 180 mg tablet active 1 pill daily Cathleen Bucky aspirin 81 mg tablet,chewable active 1 pill daily Cathleen Bucky Calcium 600 + D(3) 600 mg-5 mcg (200 unit) tablet active 1 pill daily Cathleen Bucky Eliquis 5 mg tablet completed Take 1 tablet by mouth twice a day - Isis Sharp atorvastatin 40 mg tablet completed TAKE 1 TABLET BY MOUTH AT BEDTIME - Cathleen Bucky atorvastatin 40 mg tablet completed Take 1 tablet by mouth at bedtime - Bernadette Rushing Eliquis 5 mg tablet completed TAKE 1 TABLET BY MOUTH TWICE DAILY - Nay Gross diltiazem HCl (Cardizem CD) 120 mg capsule,extende d release 24hr completed TAKE 1 CAPSULE BY MOUTH EVERY DAY - Cathleen Bucky B-12 TABLET completed once a week Nay Gross ACID TIRE MAN 20 MG TBEC completed Take 1 twice a day - Nay Gross Eliquis 5 mg tablet completed Take 1 tablet by mouth twice a day - Mable Joyner HYDROCODONE-DEVONTE TAMINOPHEN 5-325 MG ORAL TABLET completed take one to two tablets as needed every 6 hours for pain - [employer] WARFARIN SODIUM 1 MG ORAL TABLET completed HOLD - [employer] IRON TABLET active three times a week Nay Gross B-12 TABLET completed once a week - Nay Gross MULTIVITAMIN ADULT TABS active Take 1 once a day Nay Gross metoprolol tartrate 25 mg tablet completed Take 0.5 tablet by mouth twice a day - Marilyn Middleton COUMADIN 5 MG ORAL TABLET completed Take 5 mg (1 tab) daily on Tuesday, Tuesday, Tuesday, and Tuesday. Take 7.5 mg (1.5 tabs) on Tuesday and Tuesday. - Chastity Gaytan NP atorvastatin 40 mg tablet completed Take 1 tablet by mouth once a day - Marilyn Middleton SOCIAL HISTORY Date Observation Value Provider personal history of marijuana use no Yesenia Gabriel MD drug use no Yesenia varela MD alcohol use no Yesenia varela MD smoking status Never smoker Yesenia ba MD personal history of marijuana use no Gio Raphael ONCOLOGY PHARMACIST drug use no Gio Riosri ONCOLOGY PHARMACIST alcohol use no Gio Riosri ONCOLOGY PHARMACIST smoking status Never smoker Gio Riossupriya i ONCOLOGY PHARMACIST social history E&M S moking History: Nadine clarke has never smoked. Yesenia Gabriel MD social history reviewed E&M revi ewed - no changes required Yesenia Gabriel MD Exercise counseling yes Nay nicole smoking status Never smoker Nay Sage bowles social history reviewed E&M revi ewed - no changes required Yesenia Gabriel MD social history reviewed E&M revi ewed - no changes required Yesenia Gabriel MD Exercise counseling yes Kurt Bautista social history reviewed E&M revi ewed - no changes required Yesenia Gabriel MD social history E&M S moking History: Nadine clarke has never smoked. Yesenia Gabriel MD smoking status Never smoker Mery Lopez social history reviewed E&M revi ewed - no changes required Yesenia Gabriel MD social history E&M Smoking Histo ry: Nadine clarke has never smoked. Yesenia Gabriel MD social history E&M S moking History: Nadine clarke has never smoked. Yesenia Gabriel MD social history reviewed E&M revi ewed - no changes required Yesenia Gabriel MD smoking status Never smoker Nay Sage bowles social history E&M S moking History: Nadine clarke has never smoked. Yesenia Gabriel MD social history reviewed E&M revi ewed - no changes required Yesenia Gabriel MD smoking status Never smoker Marilyn connelly social history E&M S moking History: Nadine clarke has never smoked. Yesenia Gabriel MD social history reviewed E&M revi ewed - no changes required Yesenia Gabriel MD smoking status Never smoker Mable Alda keen smoking status Never smoker Yesenia ba MD social history reviewed E&M revi ewed - no changes required Yesenia Gabriel MD social history E&M S moking History: Nadine clarke has never smoked. Yesenia Gabriel MD social history reviewed E&M revi ewed - no changes required Yesenia Gabriel MD smoking status Never smoker Nay bowles smoking status Never smoker Chastity pennington NP social history E&M Smoking Histo ry: Nadine clarke has never smoked. Chastity Abreu NP social history reviewed E&M revi ewed - no changes required Chastity Abreu NP social history reviewed E&M revi ewed - no changes required Yesenia Gabriel MD social history E&M S moking History: Nadine clarke has never smoked. Yesenia Gabriel MD alcohol use no Chanel Payne smoking status Never smoker Chanel Ortez m social history reviewed E&M revi ewed - no changes required Bartolo Ball social history E&M S moking History: Nadine clarke has never smoked. Bartolo Ball number of grandchildren Yesenia Floreseen Payne alcohol use no [employer] smoking status Never smoker Chanel Ortez m social history reviewed E&M revi ewed - no changes required Chastity Gaytan NP social history E&M S moking History: Nadine clarke has never smoked. Chastity Gaytan NP alcohol use no Linda Prakash smoking status Never smoker Linda Prakash social history reviewed E&M revi ewed - no changes required Yesenia Gabriel MD alcohol use no David Saez nson smoking status Never smoker David Salinas social history reviewed E&M revi ewed - no changes required Yesenia Gabriel MD alcohol use no Nay Amin lder smoking status Never smoker Nay bowles social history E&M S moking History: Nadine clarke has never smoked. Yesenia Gabriel MD social history reviewed E&M revi ewed - no changes required Yesenia Gabriel MD alcohol use no aDvid Saez nsedmund smoking status Never smoker David Salinas social history E&M Smoking Histo ry: Nadine clarke has never smoked. Yesenia Gabriel MD social history reviewed E&M revi ewed - no changes required Yesenia Gabriel MD alcohol use no David Saez nsedmund smoking status Never smoker David Salinas social history reviewed E&M revi ewed - no changes required Yesenia Gabriel MD alcohol use no Nay Amin lder smoking status Never smoker Nay bowles FAMILY HISTORY Family Member Condition Father Family History of Co ronary Artery Disease: Father Family History of CV A or Stroke: Father Family History of CV A or Stroke: INSURANCE PROVIDERS Payer name Policy type / Coverage type [place] red republican ID [id number] (PPO C-SNP) Close insurance [employer] [id number] ADVANCE DIRECTIVES Name Date DISCUSSED - NO DECISION MADE TREATMENT PLAN Date Name Performer [id number],C, t kelly monitor 2 weeks June 19, 2021 f eels better off of lopressor, does have afib 10 % of the time September 18, 2021 o n eliquis no bleeding issues, will check tele monitor sincce she does not notcie when she in afib December 11, 2021 I n NSR on EKG. Echo reviewed EF was normal. Continue current med rx January 01, 2022 R emains on eliquis. Recently admitted to ER for afib episode. In SR on ekg today. Discharge on dilt 120mg. Reviewed her tele from november was having episdoes of SVT. Will continue her on dilt for now. M ay 2021 N o new afib. Remains on eliquis. Remain on Dilt since she is in NSR and tolerating. December 24, 2022 C ontinually on ELiquis and diltiazem. No afib on EKG today. Yesenia Gabriel MD [id number],C, R PM monitor to eval for episodes of hypotension on dilt. She notes that her BP drops down periodically. IF this gets too low, we may have to reduce dosage of dilt. Discussion of benefits for remote patient monitoring took place. Patient gives consent for remote monitoring of physiologic parameters including, but not limited to, weight, blood pressure, pulse oximetry, respiratory flow rate. June 25, 2022 B Ps are well controlled, continue with RPM December 24, 2022 R PM reviewed. BP is well controlled. Yesenia Gabriel MD [id number],C, R emains on OAC with Eliquis. will stop lopressopr for now, check tele June 19, 2021 f eels better off of lopressor September 18, 2021 c ontinues to remain off beta abhishek and says that she feels normal now, will remain off of lopressor December 11, 2021 r emains on eliquis no bleeding. March 24, 2022 r emains on eliquis no bleeding December 24, 2022 I deally would like her on cholesterol agents since she had prior CVA. WIll recheck labs. Yesenia Gabriel MD [id number],B, n eg carotid, lv ef 50\%, questionable stress, may need cath, stop lopressor, follow up 2 weeks, tele monitor 2 weeks September 18, 2021 i mproved, most likely due to lopressor December 24, 2022 D izziness got better after she stopped taking metoprolol. Currently taking diltiazem. Yesenia Gabriel MD [id number],C, o n hold labs were reviewed will recheck in a few months N otices dizziness is gone when off the metoprolol and statin will have to check chol panel at some point in time. Had A1c was 4. December 24, 2022 S topped her lipitor. Will check her lipid panel. Says she feels better without it. Yesenia Gabriel MD [id number],C, n o sandeep Yesenia Gabriel MD [id number],C, E cho 12/11/21 CONCLUSIONS: 1 . Normal left ventricular systolic function. Normal left ventricular size. Normal left ventricular wall thickness. There is E to A w ave reversal consistent with impaired LV relaxation. E/E': 5.6. Left ventricular ejection fraction is measured at 60 %. 2 . Mild enlargement of right ventricle. Normal right ventricular systolic function. 3. There is trace physiologic mitral valve regurgitation. 4 . Mild aortic valve regurgitation. 5 . There is mild tricuspid regurgitation. E lectronically Signed By: Jl Gabriel MD, [facility] 2 022-- 15:37:37 BALE PILER Yesenia Gabriel MD [id number],C, t kelly monitor 2 weeks June 19, 2021 f eels better off of lopressor, does have afib 10 % of the time September 18, 2021 o n eliquis no bleeding issues, will check tele monitor sincce she does not notcie when she in afib December 11, 2021 I n NSR on EKG. Echo reviewed EF was normal. Continue current med rx January 01, 2022 R eduard on eliquis. Recently admitted to ER for afib episode. In SR on ekg today. Discharge on dilt 120mg. Reviewed her tele from november was having episdoes of SVT. Will continue her on dilt for now. M ay 2021 N o new afib. Remains on eliquis. Remain on Dilt since she is in NSR and tolerating. Yesenia Gabriel MD [id number],C, R PM monitor to eval for episodes of hypotension on dilt. She notes that her BP drops down periodically. IF this gets too low, we may have to reduce dosage of dilt. Discussion of benefits for remote patient monitoring took place. Patient gives consent for remote monitoring of physiologic parameters including, but not limited to, weight, blood pressure, pulse oximetry, respiratory flow rate. June 25, 2022 B Ps are well controlled, continue with RPM Yesenia Gabriel MD [id number],C, R emains on OAC with Eliquis. will stop lopressopr for now, check tele June 19, 2021 f eels better off of lopressor September 18, 2021 c ontinues to remain off beta abhishek and says that she feels normal now, will remain off of lopressor December 11, 2021 r emains on eliquis no bleeding. March 24, 2022 r emains on eliquis no bleeding Yesenia Gabriel MD [id number],C, n o sandeep Yesenia Gabriel MD [id number],C, o n hold labs were reviewed will recheck in a few months N otices dizziness is gone when off the metoprolol and statin will have to check chol panel at some point in time. Had A1c was 4. Yesenia Gabriel MD [id number],C, R emains on OAC with Eliquis. will stop lopressopr for now, check tele June 19, 2021 f eels better off of lopressor September 18, 2021 c ontinues to remain off beta abhishek and says that she feels normal now, will remain off of lopressor December 11, 2021 r emains on eliquis no bleeding. March 24, 2022 r emains on eliquis no bleeding Yesenia Gabriel MD [id number],C,R PM monitor to eval for episodes of hypotension on dilt. She notes that her BP drops down periodically. IF this gets too low, we may have to reduce dosage of dilt. Discussion of benefits for remote patient monitoring took place. Patient gives consent for remote monitoring of physiologic parameters including, but not limited to, weight, blood pressure, pulse oximetry, respiratory flow rate. Yesenia Gabriel MD [id number],S, t kelly monitor 2 weeks June 19, 2021 f eels better off of lopressor, does have afib 10 % of the time September 18, 2021 o n eliquis no bleeding issues, will check tele monitor sincce she does not notcie when she in afib December 11, 2021 I n NSR on EKG. Echo reviewed EF was normal. Continue current med rx January 01, 2022 R eduard on eliquis. Recently admitted to ER for afib episode. In SR on ekg today. Discharge on dilt 120mg. Reviewed her tele from november was having episdoes of SVT. Will continue her on dilt for now. M ay 2021 N o new afib. Remains on eliquis. Remain on Dilt since she is in NSR and tolerating. Yesenia Gabriel MD [id number],C, n o sandeep Yesenia Gabriel MD [id number],C, v accinated J&J n ever had covid Yesenia Gabriel MD [id number],C, o n hold labs were reviewed will recheck in a few months N otices dizziness is gone when off the metoprolol and statin will have to check chol panel at some point in time. Had A1c was 4. Yesenia Gabriel MD [id number],C, v accinated n ever had covid Yesenia Gabriel MD [id number],C,E cho 12/11/21 CONCLUSIONS: 1 . Normal left ventricular systolic function. Normal left ventricular size. Normal left ventricular wall thickness. There is E to A w ave reversal consistent with impaired LV relaxation. E/E': 5.6. Left ventricular ejection fraction is measured at 60 %. 2 . Mild enlargement of right ventricle. Normal right ventricular systolic function. 3 . There is trace physiologic mitral valve regurgitation. 4 . Mild aortic valve regurgitation. 5 . There is mild tricuspid regurgitation. E lectronically Signed By: Jl Gabriel MD, [facility] 2 15:37:37 BALE PILER Yesenia Gabriel MD [id number],S, t kelly monitor 2 weeks June 19, 2021 f eels better off of lopressor, does have afib 10 % of the time September 18, 2021 o n eliquis no bleeding issues, will check tele monitor sincce she does not notcie when she in afib December 11, 2021 I n NSR on EKG. Echo reviewed EF was normal. Continue current med rx January 01, 2022 R emains on eliquis. Recently admitted to ER for afib episode. In SR on ekg today. Discharge on dilt 120mg. Reviewed her tele from november was having episdoes of SVT. Will continue her on dilt for now. Yesenia Gabriel MD [id number],C, o n hold labs were reviewed will rechekc in a few months N otices dizziness is gone when off the metoprolol and statin will have to check chol panel at some point in time. Had A1c was 4. something Yesenia Gabriel MD [id number],C, v accinated n ever had covid Yesenia Gabriel MD [id number],C, R emains on OAC with Eliquis. will stop lopressopr for now, check tele June 19, 2021 f eels better off of lopressor September 18, 2021 c ontinues to remain off beta abhishek and says that she feels normal now, will remain off of lopressor December 11, 2021 r emains on eliquis no bleeding. Yesenia Gabriel MD [id number],C, n o sandeep Yesenia Gabriel MD [id number],C, t kelly monitor 2 weeks June 19, 2021 f eels better off of lopressor, does have afib 10 % of the time September 18, 2021 o n eliquis no bleeding issues, will check tele monitor sincce she does not notcie when she in afib December 11, 2021 I n NSR on EKG. Echo reviewed EF was normal. Continue current med rx Yesenia Gabriel MD [id number],S, n eg carotid, lv ef 50\%, questionable stress, may need cath, stop lopressor, follow up 2 weeks, tele monitor 2 weeks September 18, 2021 i mproved, most likely due to lopressor Yesenia Gabriel MD [id number],S,c heck echo LVEF 50 % last time, and she intermittent afib Stress test from 01/20/2021 Post ECG: N o ischemic ST or T changes. There is no EKG evidence of myocardial ischemia with vasodilator stress. P erfusion: A bnormal perfusion imaging - see below. There is a high subdiaphragmatic radionuclide activity noted and breast attenuation a rtifacts. The severity of the artifact is moderate. Technical quality of study is fair. I nferior Wall Perfusion: T he inferior wall has a moderate perfusion abnormality defect. The defect is not reversible. L V Function: L eft Ventricular Ejection Fraction is 60 %. TID: 1.05. Left ventricular wall motion is normal. Yesenia Gabriel MD [id number],C, R emains on OAC with Eliquis. will stop lopressopr for now, check tele June 19, 2021 f eels better off of lopressor September 18, 2021 c ontinues to remain off beta abhishek and says that she feels normal now, will remain off of lopressor Yesenia Gabriel MD [id number],C, t kelly monitor 2 weeks June 19, 2021 f eels better off of lopressor, does have afib 10 % of the time September 18, 2021 o n eliquis no bleeding issues, will check tele monitor sincce she does not notcie when she in afib Yesenia Gabriel MD [id number],C, v accinated Yesenia Gabriel MD [id number],C,no sandeep Kristofer Gabriel MD [id number],C, t kelly monitor 2 weeks June 19, 2021 f eels better off of lopressor, does have afib 10 % of the time Yesenia Gabriel MD [id number],C, R emains on OAC with Eliquis. will stop lopressopr for now, check tele June 19, 2021 f eels better off of loprrssor Yesenia Gabriel MD [id number],C, v accinated Yesenia Gabriel MD [id number],S,o n hold labs were reviewed will rechekc in a few months Yesenia Gabriel MD [id number],S,vaccinate Elton Gabriel MD [id number],S,s top for 2 weeks H er updated medication list for this problem includes: Atorvastatin 40mg Tablets (Atorvastatin calcium) ..... Take 1 tablet by mouth every day Yesenia Gabriel MD [id number],C,stop lopresso r Yesenia Gabriel MD [id number],S,tele monitor 2 weeks Yesenia Gabriel MD [id number],C,n eg carotid, lv ef 50\%, questionable stress, may need cath, stop lopressor, follow up 2 weeks, tele mnonitor 2 weeks Yesenia Gabriel MD [id number],C, R emains on OAC with Eliquis. will stop lopressopr for now, check tele Yesenia Gabriel MD Cardiology: O ctober 2023 Interested in having Orthopedic surgery. REVIEWED PTS INVASIVE AND NONINVASIVE TESTING. PT IS DEEMED AN ACCEPTABLE CANDIDATE FOR THE PLANNED ORTHOPEDIC SURGICAL PROCEDURE. RECOMMEND TO KEEP HEART RATE IN RANGE OF 60-100BPM AND SYSTOLIC BLOOD PRESSURE IN RANGE OF 110-140MMHG. OK TO USE BETA BLOCKERS/ CALCIUM CHANNEL BLOCKERS/ NITRATES/ AFTERLOAD REDUCING AGENTS TO MAINTAIN THE AFOREMENTIONED HEMODYNAMIC PARAMETERS. RECOMMEND PERIOPERATIVE TELE MONITORING IF PATIENT HAS HISTORY OF ARRHYTHMIA AND A POSTOPERATIVE EKG. She had Echo done which demonstrated mild reduction in LVF down to 40%, she has had prior Echos done which has showed EF as low as 50% and as high as 60%, there is mild AR and mild MR. Which is similar to prior Echos. VISUALLY LVEF IS 50-55% GROSSLY UNCHANGED FROM PRIOR STUDIES S he has hx of rapid AFIB and is on Eliquis, she will need to come off Eliquis for Ortho surgery, which should be okay to do O NATE TO HOLD ELIQUIS FOR PREOP SURGERY BECAUSE SH EIS NOT HAVING AFIB EPISODES, NOTED ON HOLTER MONITOR. December 19, 2024 h ad ortho surgery done, currently still in wheelchair, will be following with orthopedic surgeon soon. Yesenia Gabriel MD Cardiology: T his visit has been a part of the consistent, comprehensive, and ongoing management of the chronic medical condition(s) listed above for the patient. J ally 2020 f eels better off of lopressor, does have afib 10 % of the time September 18, 2021 o n eliquis no bleeding issues, will check tele monitor sincce she does not notcie when she in afib December 11, 2021 I n NSR on EKG. Echo reviewed EF was normal. Continue current med rx January 01, 2022 R eduard on eliquis. Recently admitted to ER for afib episode. In SR on ekg today. Discharge on dilt 120mg. Reviewed her tele from november was having episdoes of SVT. Will continue her on dilt for now. March 24, 2022 N o new afib. Remains on eliquis. Remain on Dilt since she is in NSR and tolerating. December 24, 2022 C ontinually on ELiquis and diltiazem. No afib on EKG today. June 20, 2024 O n Eliquis for AC with no bleeding issues/concerns. No AFib on EKG today. December 19, 2024 O n Eliquis for AC with no bleeding issues/concerns. No AFib on EKG today. Yesenia Gabriel MD Cardiology: T his visit has been a part of the consistent, comprehensive, and ongoing management of the chronic medical condition(s) listed above for the patient. on hold labs were reviewed will recheck in a few months N otices dizziness is gone when off the metoprolol and statin will have to check chol panel at some point in time. Had A1c was 4. December 24, 2022 S topped her lipitor. Will check her lipid panel. Says she feels better without it. June 20, 2024 T OTAL 191, TRI 97, HDL 53, LDL 119. H er updated medication list for this problem includes: Nexletol 180 Mg Tablet (Bempedoic acid) ..... 1 pill daily December 19, 2024 C ontinue with nexletol for lipids Yesenia Gabriel MD Cardiology: R emains on OAC with Eliquis. will stop lopressopr for now, check tele June 19, 2021 f eels better off of lopressor September 18, 2021 c ontinues to remain off beta abhishek and says that she feels normal now, will remain off of lopressor December 11, 2021 r emains on eliquis no bleeding. March 24, 2022 r emains on eliquis no bleeding & #13;December 24, 2022 I deally would like her on cholesterol agents since she had prior CVA. WIll recheck labs. June 20, 2024 s tartd on nexletol for chol by pcp Yesenia Gabriel MD Telehealth:August [id number] Interested in having Orthopedic surgery. REVIEWED PTS INVASIVE AND NONINVASIVE TESTING. PT IS DEEMED AN ACCEPTABLE CANDIDATE FOR THE PLANNED ORTHOPEDIC SURGICAL PROCEDURE. RECOMMEND TO KEEP HEART RATE IN RANGE OF 60-100BPM AND SYSTOLIC BLOOD PRESSURE IN RANGE OF 110-140MMHG. OK TO USE BETA BLOCKERS/ CALCIUM CHANNEL BLOCKERS/ NITRATES/ AFTERLOAD REDUCING AGENTS TO MAINTAIN THE AFOREMENTIONED HEMODYNAMIC PARAMETERS. RECOMMEND PERIOPERATIVE TELE MONITORING IF PATIENT HAS HISTORY OF ARRHYTHMIA AND A POSTOPERATIVE EKG. She had Echo done which demonstrated mild reduction in LVF down to 40%, she has had prior Echos done which has showed EF as low as 50% and as high as 60%, there is mild AR and mild MR. Which is similar to prior Echos. VISUALLY LVEF IS 50-55% GROSSLY UNCHANGED FROM PRIOR STUDIES S he has hx of rapid AFIB and is on Eliquis, she will need to come off Eliquis for Ortho surgery, which should be okay to do O NATE TO HOLD ELIQUIS FOR PREOP SURGERY BECAUSE SH EIS NOT HAVING AFIB EPISODES, NOTED ON HOLTER MONITOR. Yesenia Gabriel MD Cardiology: n eg carotid, lv ef 50\%, questionable stress, may need cath, stop lopressor, follow up 2 weeks, tele monitor 2 weeks September 18, 2021 i mproved, most likely due to lopressor December 24, 2022 D izziness got better after she stopped taking metoprolol. Currently taking diltiazem. June 20, 2024 N o more symptoms after stopping Diltiazem Doe Real Cardiology:This visi t has been a part of the consistent, comprehensive, and ongoing management of the chronic medical condition(s) listed above for the patient. on hold labs were reviewed will recheck in a few months N otices dizziness is gone when off the metoprolol and statin will have to check chol panel at some point in time. Had A1c was 4. December 24, 2022 S topped her lipitor. Will check her lipid panel. Says she feels better without it. June 20, 2024 T OTAL 191, TRI 97, HDL 53, LDL 119. H er updated medication list for this problem includes: Nexletol 180 Mg Tablet (Bempedoic acid) ..... 1 pill daily Gio Raphael NP Cardiology: NEEDS TO REMAIN ON ELIQUIS FROM PERSPECTIVE OF REDUCED MOBILITY/ MLTIPLE ORTHO SURGERIES/ AND AFIB H IGH RISK FOR DEVELOPMENT OF DVT AND PE R EVIEWED W/ PT AND FAMILY C MICHELLE W/ ELIQUIS LIKEY FOR LIFETIME T his visit has been a part of the consistent, comprehensive, and ongoing management of the chronic medical condition(s) listed above for the patient. Gio Raphael NP Cardiology: R emains on OAC with Eliquis. will stop lopressopr for now, check tele June 19, 2021 f eels better off of lopressor September 18, 2021 c ontinues to remain off beta abhishek and says that she feels normal now, will remain off of lopressor December 11, 2021 r emains on eliquis no bleeding. March 24, 2022 r emains on eliquis no bleeding & #13;December 24, 2022 I deally would like her on cholesterol agents since she had prior CVA. WIll recheck labs. June 20, 2024 s tartd on nexletol for chol by pcp Gio Raphael NP Cardiology: n eg carotid, lv ef 50\%, questionable stress, may need cath, stop lopressor, follow up 2 weeks, tele monitor 2 weeks September 18, 2021 i mproved, most likely due to lopressor December 24, 2022 D izziness got better after she stopped taking metoprolol. Currently taking diltiazem. June 20, 2024 N o more symptoms after stopping Diltiazem Gio Raphael NP Cardiology: R PM monitor to eval for episodes of hypotension on dilt. She notes that her BP drops down periodically. IF this gets too low, we may have to reduce dosage of dilt. Discussion of benefits for remote patient monitoring took place. Patient gives consent for remote monitoring of physiologic parameters including, but not limited to, weight, blood pressure, pulse oximetry, respiratory flow rate. June 25, 2022 B Ps are well controlled, continue with RPM December 24, 2022 R PM reviewed. BP is well controlled. June 20, 2024 D iltiazem stopped due to low BP. T his visit has been a part of the consistent, comprehensive, and ongoing management of the chronic medical condition(s) listed above for the patient. Gio Raphael NP Cardiology:This visi t has been a part of the consistent, comprehensive, and ongoing management of the chronic medical condition(s) listed above for the patient. J ally 2020 f eels better off of lopressor, does have afib 10 % of the time September 18, 2021 o n eliquis no bleeding issues, will check tele monitor sincce she does not notcie when she in afib December 11, 2021 I n NSR on EKG. Echo reviewed EF was normal. Continue current med rx January 01, 2022 R emains on eliquis. Recently admitted to ER for afib episode. In SR on ekg today. Discharge on dilt 120mg. Reviewed her tele from november was having episdoes of SVT. Will continue her on dilt for now. March 24, 2022 N o new afib. Remains on eliquis. Remain on Dilt since she is in NSR and tolerating. December 24, 2022 C ontinually on ELiquis and diltiazem. No afib on EKG today. June 20, 2024 O n Eliquis for AC with no bleeding issues/concerns. No AFib on EKG today. Gio Donavon SAMUELS Cardiology: t kelly monitor 2 weeks June 19, 2021 f eels better off of lopressor, does have afib 10 % of the time September 18, 2021 o n eliquis no bleeding issues, will check tele monitor sincce she does not notcie when she in afib December 11, 2021 I n NSR on EKG. Echo reviewed EF was normal. Continue current med rx January 01, 2022 R emains on eliquis. Recently admitted to ER for afib episode. In SR on ekg today. Discharge on dilt 120mg. Reviewed her tele from november was having episdoes of SVT. Will continue her on dilt for now. March 24, 2022 N o new afib. Remains on eliquis. Remain on Dilt since she is in NSR and tolerating. December 24, 2022 C ontinually on ELiquis and diltiazem. No afib on EKG today. Yesenia Gabriel MD Cardiology: R PM monitor to eval for episodes of hypotension on dilt. She notes that her BP drops down periodically. IF this gets too low, we may have to reduce dosage of dilt. Discussion of benefits for remote patient monitoring took place. Patient gives consent for remote monitoring of physiologic parameters including, but not limited to, weight, blood pressure, pulse oximetry, respiratory flow rate. June 25, 2022 B Ps are well controlled, continue with RPM December 24, 2022 R PM reviewed. BP is well controlled. Yesenia Gabriel MD Cardiology: R emains on OAC with Eliquis. will stop lopressopr for now, check tele June 19, 2021 f eels better off of lopressor September 18, 2021 c ontinues to remain off beta abhishek and says that she feels normal now, will remain off of lopressor December 11, 2021 r emains on eliquis no bleeding. March 24, 2022 r emains on eliquis no bleeding & #13;December 24, 2022 I deally would like her on cholesterol agents since she had prior CVA. WIll recheck labs. Yesenia Gabriel MD Cardiology: n eg carotid, lv ef 50\%, questionable stress, may need cath, stop lopressor, follow up 2 weeks, tele monitor 2 weeks September 18, 2021 i mproved, most likely due to lopressor December 24, 2022 D izziness got better after she stopped taking metoprolol. Currently taking diltiazem. Yesenia Gabriel MD Cardiology: o n hold labs were reviewed will recheck in a few months N otices dizziness is gone when off the metoprolol and statin will have to check chol panel at some point in time. Had A1c was 4. December 24, 2022 S topped her lipitor. Will check her lipid panel. Says she feels better without it. Yesenia Gabriel MD Cardiology: n o sandeep Yesenia Gabriel MD Cardiology: E cho 12/11/21 CONCLUSIONS: 1 . Normal left ventricular systolic function. Normal left ventricular size. Normal left ventricular wall thickness. There is E to A w ave reversal consistent with impaired LV relaxation. E/E': 5.6. Left ventricular ejection fraction is measured at 60 %. 2 . Mild enlargement of right ventricle. Normal right ventricular systolic function. 3 . There is trace physiologic mitral valve regurgitation. 4 . Mild aortic valve regurgitation. 5 . There is mild tricuspid regurgitation. E lectronically Signed By: Jl Gabriel MD, [facility] 2 022-01-21 15:37:37 [employer] Yesenia Gabriel MD Cardiology: t kelly monitor 2 weeks June 19, 2021 f eels better off of lopressor, does have afib 10 % of the time September 18, 2021 o n eliquis no bleeding issues, will check tele monitor sincce she does not notcie when she in afib December 11, 2021 I n NSR on EKG. Echo reviewed EF was normal. Continue current med rx January 01, 2022 R emains on eliquis. Recently admitted to ER for afib episode. In SR on ekg today. Discharge on dilt 120mg. Reviewed her tele from november was having episdoes of SVT. Will continue her on dilt for now. March 24, 2022 N o new afib. Remains on eliquis. Remain on Dilt since she is in NSR and tolerating. Yesenia Gabriel MD Cardiology: R PM monitor to eval for episodes of hypotension on dilt. She notes that her BP drops down periodically. IF this gets too low, we may have to reduce dosage of dilt. Discussion of benefits for remote patient monitoring took place. Patient gives consent for remote monitoring of physiologic parameters including, but not limited to, weight, blood pressure, pulse oximetry, respiratory flow rate. June 25, 2022 B Ps are well controlled, continue with RPM Yesenia Gabriel MD Cardiology: R emains on OAC with Eliquis. will stop lopressopr for now, check tele June 19, 2021 f eels better off of lopressor September 18, 2021 c ontinues to remain off beta abhishek and says that she feels normal now, will remain off of lopressor December 11, 2021 r emains on eliquis no bleeding. March 24, 2022 r emains on eliquis no bleeding Yesenia Gabriel MD Cardiology: n o sandeep Yesenia Gabriel MD Cardiology: o n hold labs were reviewed will recheck in a few months N otices dizziness is gone when off the metoprolol and statin will have to check chol panel at some point in time. Had A1c was 4. Yesenia Gabriel MD [id number]: R emains on OAC with Eliquis. will stop lopressopr for now, check tele June 19, 2021 f eels better off of lopressor September 18, 2021 c ontinues to remain off beta abhishek and says that she feels normal now, will remain off of lopressor December 11, 2021 r emains on eliquis no bleeding. March 24, 2022 r emains on eliquis no bleeding Yesenia Gabriel MD [id number]:RPM monitor to eval for episodes of hypotension on dilt. She notes that her BP drops down periodically. IF this gets too low, we may have to reduce dosage of dilt. Discussion of benefits for remote patient monitoring took place. Patient gives consent for remote monitoring of physiologic parameters including, but not limited to, weight, blood pressure, pulse oximetry, respiratory flow rate. Yesenia Gabriel MD [id number]: t kelly monitor 2 weeks June 19, 2021 f eels better off of lopressor, does have afib 10 % of the time September 18, 2021 o n eliquis no bleeding issues, will check tele monitor sincce she does not notcie when she in afib December 11, 2021 I n NSR on EKG. Echo reviewed EF was normal. Continue current med rx January 01, 2022 R emains on eliquis. Recently admitted to ER for afib episode. In SR on ekg today. Discharge on dilt 120mg. Reviewed her tele from november was having episdoes of SVT. Will continue her on dilt for now. March 24, 2022 N o new afib. Remains on eliquis. Remain on Dilt since she is in NSR and tolerating. Yesenia Gabriel MD [id number]: n o sandeep Yesenia Gabriel MD [id number]: v accinated J&J n ever had covid Yesenia Gabriel MD Cardiology: o n hold labs were reviewed will recheck in a few months N otices dizziness is gone when off the metoprolol and statin will have to check chol panel at some point in time. Had A1c was 4. Yesenia Gabriel MD Cardiology: v accinated n ever had mustapha Gabriel MD Cardiology:Echo 12/11 CONCLUSIONS: 1 . Normal left ventricular systolic function. Normal left ventricular size. Normal left ventricular wall thickness. There is E to A w ave reversal consistent with impaired LV relaxation. E/E': 5.6. Left ventricular ejection fraction is measured at 60 %. 2 . Mild enlargement of right ventricle. Normal right ventricular systolic function. 3 . There is trace physiologic mitral valve regurgitation. 4 . Mild aortic valve regurgitation. 5 . There is mild tricuspid regurgitation. E lectronically Signed By: Jl Gabriel MD, [facility] 2 15:37:37 BALE P[employer]ER Yesenia Gabriel MD Cardiology: t kelly monitor 2 weeks June 19, 2021 f eels better off of lopressor, does have afib 10 % of the time September 18, 2021 o n eliquis no bleeding issues, will check tele monitor sincce she does not notcie when she in afib December 11, 2021 I n NSR on EKG. Echo reviewed EF was normal. Continue current med rx January 01, 2022 R emains on eliquis. Recently admitted to ER for afib episode. In SR on ekg today. Discharge on dilt 120mg. Reviewed her tele from november was having episdoes of SVT. Will continue her on dilt for now. Yesenia Gabriel MD Cardiology: o n hold labs were reviewed will rechekc in a few months N otices dizziness is gone when off the metoprolol and statin will have to check chol panel at some point in time. Had A1c was 4. something Yesenia Gabriel MD Cardiology: v accinated n ever had covid Yesenia Gabriel MD Cardiology: R emains on OAC with Eliquis. will stop lopressopr for now, check tele June 19, 2021 f eels better off of lopressor September 18, 2021 c ontinues to remain off beta abhishek and says that she feels normal now, will remain off of lopressor December 11, 2021 r emains on eliquis no bleeding. Yesenia Gabriel MD Cardiology: n o sandeep Yesenia Gabriel MD Cardiology: t kelly monitor 2 weeks June 19, 2021 f eels better off of lopressor, does have afib 10 % of the time September 18, 2021 o n eliquis no bleeding issues, will check tele monitor sincce she does not notcie when she in afib December 11, 2021 I n NSR on EKG. Echo reviewed EF was normal. Continue current med rx Yesenia Gabriel MD Cardiology: n eg carotid, lv ef 50\%, questionable stress, may need cath, stop lopressor, follow up 2 weeks, tele monitor 2 weeks September 18, 2021 i mproved, most likely due to lopressor Yesenia Gabriel MD Cardiology:check ech o LVEF 50 % last time, and she intermittent afib Stress test from 01/20/2021 Post ECG: N o ischemic ST or T changes. There is no EKG evidence of myocardial ischemia with vasodilator stress. P erfusion: A bnormal perfusion imaging - see below. There is a high subdiaphragmatic radionuclide activity noted and breast attenuation a rtifacts. The severity of the artifact is moderate. Technical quality of study is fair. I nferior Wall Perfusion: T he inferior wall has a moderate perfusion abnormality defect. The defect is not reversible. L V Function: L eft Ventricular Ejection Fraction is 60 %. TID: 1.05. Left ventricular wall motion is normal. Yesenia Gabriel MD Cardiology: R emains on OAC with Eliquis. will stop lopressopr for now, check tele June 19, 2021 f eels better off of lopressor September 18, 2021 c ontinues to remain off beta abhishek and says that she feels normal now, will remain off of lopressor Yesenia Gabriel MD Cardiology: t kelly monitor 2 weeks June 19, 2021 f eels better off of lopressor, does have afib 10 % of the time September 18, 2021 o n eliquis no bleeding issues, will check tele monitor sincce she does not notcie when she in afib Yesenia Gabriel MD Cardiology: v accinated Yesenia Gabriel MD Cardiology:no sandeep Yesenia foley MD Cardiology follow up : t kelly monitor 2 weeks June 19, 2021 f eels better off of lopressor, does have afib 10 % of the time Yesenia Gabriel MD Cardiology follow up : R emains on OAC with Eliquis. will stop lopressopr for now, check tele June 19, 2021 f eels better off of loprrssor Yesenia Gabriel MD Cardiology follow up : v accinated Yesenia Gabriel MD Cardiology follow up :on hold labs were reviewed will rechekc in a few months Yesenia Gabriel MD Cardiology:vaccinate Yesenia prather MD Cardiology:stop for 2 weeks H er updated medication list for this problem includes: Atorvastatin 40mg Tablets (Atorvastatin calcium) ..... Take 1 tablet by mouth every day Yesenia Gabriel MD Cardiology:stop lopressor Kristofer Gabriel MD Cardiology:tele monitor 2 weeks Yesenia Gabriel MD Cardiology:neg carot id, lv ef 50\%, questionable stress, may need cath, stop lopressor, follow up 2 weeks, tele mnonitor 2 weeks Yesenia Gabriel MD Cardiology: R emains on OAC with Eliquis. will stop lopressopr for now, check tele Yesenia Gabriel MD Cardiology follow up : R emains on OAC with Eliquis. Yesenia Gabriel MD Cardiology follow up : H er updated medication list for this problem includes: Atorvastatin 40mg Tablets (Atorvastatin calcium) ..... Take 1 tablet by mouth every day Yesenia Gabriel MD Cardiology follow up : Tele monitor showed SR. April 10, 2021 E KG sr Yesenia Gabriel MD Cardiology follow up : I n sinus rhythm by EKG today. remains on eliquis Her updated medication list for this problem includes: Metoprolol Tartrate 25 Mg Oral Tablet (Metoprolol tartrate) ..... 1/2 pill twice a day Yesenia Gabriel MD Cardiology follow up :abm stress. no sx, preserved LVF, no plans for cath h as gained around 35-40 lbs recommend dietary weight loss Yesenia Gabriel MD Cardiology Follow up : Tele monitor showed SR. Yesenia Gabriel MD Cardiology Follow up Yesenia prather MD Cardiology Follow up : H er updated medication list for this problem includes: Atorvastatin 40mg Tablets (Atorvastatin calcium) ..... Take 1 tablet by mouth every day Yesenia Gabriel MD Cardiology Follow up : I n sinus rhythm by EKG today. Her updated medication list for this problem includes: Metoprolol Tartrate 25 Mg Oral Tablet (Metoprolol tartrate) ..... 1/2 pill twice a day Yesenia Gabriel MD Cardiology Follow up : R eduard on OAC with Eliquis. Yesenia Gabriel MD Cardiology: Tele mon itor showed SR. Chastity Abreu NP Cardiology: H er updated medication list for this problem includes: Atorvastatin 40mg Tablets (Atorvastatin calcium) ..... Take 1 tablet by mouth every day Chastity Abreu NP Cardiology:Nuclear s tress test 11/2018 S miguel 1 . Mildly abnormal myocardial imaging after vasodilator stress with Regadenoson. 2 . There is a fixed defect involving the inferior wall that is most consistent with artifact from nearby bowel. 3 . Normal left ventricular systolic function with a calculated ejection fraction of 53%. 4 . This is a low risk study. Echo C onclusions: 1 . Technically difficult study, limited parasternal views. Normal left ventricular systolic function. N ormal left ventricular size. Normal left ventricular wall thickness. Normal E/E` 7.5. Left ventricular e jection fraction is estimated at 60 %. 2 . Normal right ventricular size. Normal right ventricular systolic function. 3 . Mildly thickened aortic valve leaflets. Tri-leaflet aortic valve. Velocities, as well as gradients across t he aortic valve are normal. Mild aortic valve regurgitation. 4 . There is non-specific thickening of the tricuspid valve. IVC is dilated with normal respiratory r esponse, consistent with mildly elevated right atrial pressures. Estimated peak pulmonary artery s ystolic pressure is 25. Carotid US C onclusions: 1 . Mild plaque with less than 50% stenosis of the internal carotid arteries bilaterally. 2 . Vertebral flow is antegrade bilaterally. Chastity Abreu NP Cardiology:In sinus rhythm by EKG today. Her updated medication list for this problem includes: Metoprolol Tartrate 25 Mg Oral Tablet (Metoprolol tartrate) ..... 1/2 pill twice a day Chastity Abreu NP Cardiology: R emains on OAC with Eliquis. Chastity Abreu NP Cardiology:SR on tel e. on OAC with Eliquis. Her updated medication list for this problem includes: Metoprolol Tartrate 25 Mg Oral Tablet (Metoprolol tartrate) ..... 1/2 pill twice a day Yesenia Gabriel MD Cardiology:Remains on OAC with E liquis. Yesenia Gabriel MD Cardiology:No furthe r episodes. Tele monitor showed SR. Yesenia Gabriel MD Cardiology Chastity Mccoy Cardiology:Currently in NSR on today's EKG. - per above will assess for paf with 2 week telesentry monitor - has not been consistently anticoagulated on coumadin, will change to Eliquis - f/u in one month T he following medications were removed from the medication list: Warfarin Sodium 1 Mg Oral Tablet (Warfarin sodium) ..... Hold Coumadin 5 Mg Oral Tablet (Warfarin sodium) ..... Take 5 mg (1 tab) daily on tuesday, tuesday, tuesday, and tuesday. take 7.5 mg (1.5 tabs) on tuesday and tuesday. Her updated medication list for this problem includes: Metoprolol Tartrate 25 Mg Oral Tablet (Metoprolol tartrate) ..... 1/2 pill twice a day Chastity Gaytan NP Cardiology:Concerns for TIA in patient with h/o of prior CVA, afib and sub therapeutic INRs. - will plan for 2 week telesentry monitor to assess for paf. - change from coumadin to Eliquis to assure consistent anticoaguation in high risk patient Chastity Gaytan NP Cardiology follow up:On [place] Chastity Gaytan NP Cardiology follow up:No recurren ce Chastity Lucila SAMUELS Cardiology follow up :Interested in having knee replacement. REVIEWED PTS INVASIVE AND NONINVASIVE TESTING. PT IS DEEMED AN ACCEPTABLE CANDIDATE FOR THE PLANNED SURGICAL PROCEDURE. RECOMMEND TO KEEP HEART RATE IN RANGE OF 60-100BPM AND SYSTOLIC BLOOD PRESSURE IN RANGE OF 110-140MMHG. OK TO USE BETA BLOCKERS/ CALCIUM CHANNEL BLOCKERS/ NITRATES/ AFTERLOAD REDUCING AGENTS TO MAINTAIN THE AFOREMENTIONED HEMODYNAMIC PARAMETERS. RECOMMEND PERIOPERATIVE TELE MONITORING IF PATIENT HAS HISTORY OF ARRHYTHMIA AND A POSTOPERATIVE EKG. OKAY TO HOLD COUMADIN FOR PREOP SURGERY BECAUSE SH EIS NOT HAVING AFIB EPISODES, NOTED ON HOLTER MONITOR. Chastity Gaytan NP Cardiology Yesenia Gabriel MD Cardiology Yesenia Gabriel MD Cardiology Yesenia Gabriel MD Cardiology:REVIEWED PTS INVASIVE AND NONINVASIVE TESTING. PT IS DEEMED AN ACCEPTABLE CANDIDATE FOR THE PLANNED SURGICAL PROCEDURE. RECOMMEND TO KEEP HEART RATE IN RANGE OF 60-100BPM AND SYSTOLIC BLOOD PRESSURE IN RANGE OF 110-140MMHG. OK TO USE BETA BLOCKERS/ CALCIUM CHANNEL BLOCKERS/ NITRATES/ AFTERLOAD REDUCING AGENTS TO MAINTAIN THE AFOREMENTIONED HEMODYNAMIC PARAMETERS. RECOMMEND PERIOPERATIVE TELE MONITORING IF PATIENT HAS HISTORY OF ARRHYTHMIA AND A POSTOPERATIVE EKG. OKAY TO HOLD COUMADIN FOR PREOP SURGERY BECAUSE SH EIS NOT HAVING AFIB EPISODES, NOTED ON HOLTER MONITOR. H er updated medication list for this problem includes: Warfarin Sodium 1 Mg Oral Tabs (Warfarin sodium) ..... Take 1 tab with 5mg equal 6mg daily except on tue - tue - tue take 2 tabs Metoprolol Tartrate 25 Mg Oral Tabs (Metoprolol tartrate) ..... 1/2 pill twice a day Coumadin 5 Mg Oral Tabs (Warfarin sodium) ..... Take one pill a day Yesenia Gabriel MD Cardiology Yesenia Gabriel MD Cardiology Follow up :in sr will get tele monitor O rders: [id number] HIGH Complex ([id number]) H olter Monitor 24 Hr ([id number]) C omplete Echo ([id number]) Yesenia Gabriel MD Cardiology Follow up :01/2016 carotid Conclusions: 1 . Normal carotid duplex examination. 2 . Vertebral flow is antegrade bilaterally. Yesenia Gabriel MD Cardiology Follow up :check echo and holter Yesenia Gabriel MD Cardiology Follow up :REVIEWED WITH PT THE INCREASED RISK FOR CVA OFF A/C H OWVER WANTS TO GET SURGERY DONE H BEEN SR ON PRIOR EKG W ILL [place] TO SEE IF SHE HAS PAF I F NO PAF OK TO GET OFF A/C FOR PLASTIC SURGERY C HECK ECHO FOR LV FXN PREOP SCREENING H er updated medication list for this problem includes: Warfarin Sodium 1 Mg Oral Tabs (Warfarin sodium) ..... Take 1 tab with 5mg equal 6mg daily except on tue - tue - tue take 2 tabs Metoprolol Tartrate 25 Mg Oral Tabs (Metoprolol tartrate) ..... 1/2 pill twice a day Coumadin 5 Mg Oral Tabs (Warfarin sodium) ..... Take one pill a day Yesenia Gabriel MD Cardiology Yesenia Gabriel MD Cardiology:in sr u nclear charlie no recurrence in palpitaitons H er updated medication list for this problem includes: Warfarin Sodium 1 Mg Oral Tabs (Warfarin sodium) ..... Take 1 tab with 5mg equal 6mg daily Metoprolol Tartrate 25 Mg Oral Tabs (Metoprolol tartrate) ..... 1/2 pill twice a day Coumadin 5 Mg Oral Tabs (Warfarin sodium) ..... Take one pill a day except on tue, tue and tue take 1 1/2 tab Yesenia Gabriel MD Cardiology: H er updated medication list for this problem includes: Lipitor 40 Mg Oral Tabs (Atorvastatin calcium) ..... Take one pill a day Yesenia Gabriel MD Cardiology:HAS BEEN DOING OK CONCERN MAY BE THAT SHE HAS BRADYCARDIA CAUSING FATIGUE WILL HAVE HER CHECK PULSE WHEN WEAK AND IF BRAYD MAY N EED TO ADJUST MEDRX Yesenia Gabriel MD Cardiology Hospital Follow up Sa hamilton Gabriel MD Cardiology Hospital Follow up :maintain hydration and drink gatorade to see how you feel may be low bp related Yesenia Gabriel MD Cardiology Hospital Follow up : H er updated medication list for this problem includes: Lipitor 40 Mg Oral Tabs (Atorvastatin calcium) ..... Take one pill a day Yesenia Gabriel MD Cardiology Hospital Follow up :sr will get sleep study done s he is on coumadin w ill get tele monitor c annot run on treadmill will need lexiscan nuclear Yesenia Gabriel MD Date Name Complete Echo LIPID PANEL COMPREHENSIVE METABO LIC PANEL, W/EGFR HEPATIC FUNCTION FRANCIS EL LIPID PANEL HEPATIC FUNCTION FRANCIS EL LIPID PANEL RPM (remote patient monitoring) LIPID PANEL COMPREHENSIVE METABO LIC PANEL, W/EGFR Monitor - Telemetry (Mobile Cardiac) Complete Echo MAGNESIUM CALCIUM TSH, free T4, total T3 LIPID PANEL COMPREHENSIVE METABO LIC PANEL, W/EGFR Monitor - Telemetry (Mobile Cardiac) PROTHROMBIN TIME WIT H INR HEMOGLOBIN A1c LIPID PANEL CBC (INCLUDES DIFF/P LT) COMPREHENSIVE METABO LIC PANEL, W/EGFR Carotid Duplex Bilat eral Complete Echo Stress Regadenoson STR - Adenosine Carotid Duplex Bilat eral Complete Echo Complete Echo Holter Monitor 24 Hr BASIC METABOLIC PANE L W/EGFR CBC (INCLUDES DIFF/P LT) T3, TOTAL T-4, FREE TSH, 3RD GENERATION THYROID PANEL WITH T SH, 3RD GENERATION CBC (INCLUDES DIFF/P LT) BASIC METABOLIC PANE L W/EGFR Holter Monitor 24 Hr Sleep Study Home Carotid Duplex Bilat eral STR - Adenosine HISTORY OF PROCEDURES Procedure Date Procedure Name Provider Procedure Notes S tatus Complex e/m visit add on Yesenia Gabriel MD completed EKG Yesenia Gabriel MD compl eted EKG Yesenia Gabriel MD compl eted EKG Yesenia Gabriel MD compl eted EKG Yesenia Gabriel MD compl eted EKG Yesenia Gabriel MD compl eted Mobile Cardiac Telem etry - Tech Yesenia Gabriel MD completed Mobile Cardiac Telem etry - Prof Yesenia Gabriel MD completed EKG Yesenia Gabriel MD compl eted EKG Yesenia Gabriel MD compl eted EKG Yesenia Gabriel MD compl eted Event Monitor Yesenia Gabriel MD co mpleted EKG Yesenia Gabriel MD compl eted EKG Yesenia Gabriel MD compl eted EKG Yesenia Gabriel MD compl eted EKG Yesenia Gabriel MD compl eted EKG Yesenia Gabriel MD compl eted Regadenoson, 4 units Yesenia Gabriel MD completed Cardiolite, 2 units Yesenia Gabriel MD completed SPECT Images Bartolome Lepe MD completed Stress EKG Valente Lynn MD completed EKG Yesenia Gabriel MD compl eted Event Monitor Yesenia Gabriel MD co mpleted EKG Yesenia Gabriel MD compl eted Protime Valente Lynn MD completed Olyime Yesenia Gabriel MD compl eted Protime Noah More MD completed Protime Yesenia Gabriel MD compl eted Protime Linden Altman MD complete d Protime Linden Altman MD complete d Olyime Yesenia Gabriel MD compl eted Protime Yesenia Gabriel MD compl eted Protamelia Gabriel MD compl eted Lu Gabriel MD compl eted Lu Gabriel MD compl eted Lu Gabriel MD compl eted Lu Gabriel MD compl eted Lu Gabriel MD compl eted Protamelia Gabriel MD compl eted Protamelia Gabriel MD compl eted Protime Bennett Rain RN completed Lu Gabriel MD compl eted Protamelia Gabriel MD compl eted Lu Gabriel MD compl eted Lu Gabriel MD compl eted DEIDRA Gabriel MD compl eted SNOMED-CT: [id number] Current Medications Documented Yesenia Gabriel MD completed Lu Gabriel MD compl eted Lu Gabriel MD compl eted Lu Gabriel MD compl eted Lu Gabriel MD compl eted Lu Gabriel MD compl eted Lu Gabriel MD compl eted DEIDRA Gabriel MD compl eted SNOMED-CT: [id number] Current Medications Documented Yesenia Gabriel MD completed Lu Gabriel MD compl eted DANYA Gabriel MD completed EKG Yesenia Gabriel MD compl eted SNOMED-CT: [id number] Current Medications Documented Yesenia Gabriel MD completed Lu Gabriel MD compl eted INR Strip Yesenia Gabriel MD compl eted Lu Gabriel MD compl eted Lu Gabriel MD compl eted Lu Gabriel MD compl eted Lu Gabriel MD compl eted Lu Gabriel MD compl eted EKG Yesenia Gabriel MD compl eted SNOMED-CT: [id number] Current Medications Documented Yesenia Gabriel MD completed Lu Gabriel MD compl eted uL Gabriel MD compl eted INR Strip Yesenia Gabriel MD compl eted Lu Gabriel MD compl eted EKG Yesenia Gabriel MD compl eted SNOMED-CT: [id number] Current Medications Documented Yesenia Gabriel MD completed INR Strip Yesenia Gabriel MD compl eted Lu Gabriel MD compl eted Lu Gabriel MD compl eted Lu Gabriel MD compl eted Stress EKG Mayte Escobedo MD complet ed Regadenoson, 4 units Mayte Escobedo MD completed Cardiolite, 2 units Mayte Escobedo MD completed SPECT Images Mayte Escobedo MD compl eted Lu Gabriel MD compl eted Holter, 24 or 48 Yesenia Gabriel MD completed Lu Gabriel MD compl eted Lu Gabriel MD compl eted EKG Yesenia Gabriel MD compl eted SNOMED-CT: [id number] Current Medications Documented Yesenia Gabriel MD completed
--- OUTSIDE RECORDS SUMMARY | 2025-01-30 17:53 | XMS_ITS | Referral Summary ---
Author Organization [facility] Address [address] [place] [address] Care Team Providers Care Mail List Librarian Name Role Phone Holly Velarde MD Primary Care Provider [phone] Source Comments [facility],non-owned Affiliates and Associated Physician Practices is amultiple site organization consisting of ambulatory clinics and hospital sitesin [place], [place], [place]. This disclosure is being madepursuant to the Care Everywhere program and may not contain all information available regarding this patient. Last updated 18.[facility] Allergies No known active allergies Medications * [...] by mouth once daily. Indications: SUPPLEMENT Active Zrjpfhh-Fntlfovxt-E itamin D (CALCIUM 1200+D3 PO)Indications:SUPP LEMENT Take [...] Mass Index - - Plan of Treatment Not on file Care Teams Mail List Librarian Relationship Specialty Start Date End Date Holly Velarde MD [facility] [place] [address] PCP - General Family Medicine 03/07/23
--- OUTSIDE RECORDS SUMMARY | 2025-01-30 17:53 | XMS_ITS | Patient Health Summary ---
Author Organization [facility] Address [address] [place] [address] Care Team Providers Care Molding Machine Operator Helper Name Role Phone Holly Velarde MD Primary Care Provider [phone] Note from [facility],non-owned Affiliates and Associated Physician Practices is amultiple site organization consisting of ambulatory clinics and hospital sitesin [place], [place], [place] and [place]. This disclosure is being madepursuant to the Care Everywhere program and may not contain all information available regarding this patient. Last updated 18.[facility] [employer] Allergies No known active allergies Medications * Be aware that medications may not be up to date on this document. Alwaysverify current medications with the patient. * gabapentin (Neurontin) 400 MG capsule Take 400 mg by mouth 3 times daily as needed (NERVE PAIN). Indications: Neuropathic Pain * oxyCODONE, immediate release, (Roxicodone) 10 MG tablet Take 10 mg by mouth every 8 hours as needed for Pain. Indications: Acute Pain * cyclobenzaprine (Flexeril) 5 MG tablet Take 5 mg by mouth 2 times daily as needed (MUSCLE SPASMS). Indications: Muscle Spasm * Sennosides (Senna) 8.6 MG Take 2 capsules by mouth once daily as needed (CONSTIPATION). Indications: CONSTIPATION * apixaban (Eliquis) 5 MG tablet Take 5 mg by mouth 2 times daily. Indications: PREVENT DVT IN AFIB * multivitamin (Opurity) CHEW tablet Take 1 tablet by mouth once daily. Indications: SUPPLEMENT * Magnesium 400 MG Take 400 mg by mouth once daily. Indications: SUPPLEMENT * Imsgekv-Qjpodmsld-Wldcwvq D (CALCIUM 1200+D3 PO) Take 1 tablet by mouth once daily. Indications: SUPPLEMENT * acetaminophen (Tylenol) 500 MG tablet Take 1,000 mg by mouth every 6 hours as needed for Fever or Pain. Indications: Fever, Pain Social History Tobacco Use Types Packs/Day Years [...] - - Body Mass Index - - Care Teams Molding Machine Operator Helper Relationship Specialty Start Date End Date Holly Velarde MD [facility] [place] [address] PCP - General Family Medicine 03/07/23
--- OUTSIDE RECORDS SUMMARY | 2025-01-30 17:53 | XMS_ITS | Data Portability ---
Author Organization [place] - [facility] [employer], Main Office Address [address] [place] [address] Care Team Providers Care Retail Assistant Store Manager Name Role Phone BALJINDER ALCARAZ Primary Care Provider DAYSI GABRIEL [employer] Member KIAN LEMUS Enrollment Advisor [phone] Assessment Encounter Date Assessment Date Assessment LastModified by Organization Details LastModified Time 06/27/2024 06/27/2024 04/03/2024: TSH 0.028L, FT4 0.76L B12 >1000 ALP/ALT/AST: 145/118/106, TP 6.1L, ALB 3.2L LDL 119 WBC 3.9 06/06/2024: TP 5.8L, no M spike Hep panel/GGT: Neg TSH<0.015L, FT4 1.08 Gluc 124, ALP 131, AST 39 WBC 4.0L Not available 06/28/2024 22:04:12 08/22/2024 08/22/2024 04/03/2024: TSH 0.028L, FT4 0.76L B12 >1000 ALP/ALT/AST: 145/118/106, TP 6.1L, ALB 3.2L LDL 119 WBC 3.9 06/06/2024: TP 5.8L, no M spike Hep panel/GGT: Neg TSH<0.015L, FT4 1.08 Gluc 124, ALP 131, AST 39 WBC 4.0L Not available 08/22/2024 17:11:26 10/24/2024 10/24/2024 04/03/2024: TSH 0.028L, FT4 0.76L B12 >1000 ALP/ALT/AST: 145/118/106, TP 6.1L, ALB 3.2L LDL 119 WBC 3.9 06/06/2024: TP 5.8L, no M spike Hep panel/GGT: Neg TSH<0.015L, FT4 1.08 Gluc 124, ALP 131, AST 39 WBC 4.0L Not available 10/24/2024 17:35:41 12/03/2024 12/03/2024 04/03/2024: TSH 0.028L, FT4 0.76L B12 >1000 ALP/ALT/AST: 145/118/106, TP 6.1L, ALB 3.2L LDL 119 WBC 3.9 06/06/2024: TP 5.8L, no M spike Hep panel/GGT: Neg TSH<0.015L, FT4 1.08 Gluc 124, ALP 131, AST 39 WBC 4.0L Not available 12/03/2024 18:12:28 Plan of Treatment Reminders Order Date Submit Date Provider Last Modified By Organization Details Last Modified Time Details Appointments None recorded. Lab lipid panel, serum [address] [facility], [address] [place], [address], 5 18:34:03 CMP, serum or plasma [address] [facility], [address] [place], [address], 5 18:34:04 CBC w/ auto diff [address] [facility], [address] [place], [address], 5 18:34:04 TSH + free T4, serum [address] [facility], [address] [place], [address], 5 18:34:04 vitamin D, 25-hydroxy , total, serum [address] [facility], [address] [place], [address], 5 18:34:05 vitamin B12 + folate, serum or blood [address] [facility], [address] [place], [address], 5 18:34:05 lipid panel, serum [address] [facility], [address] [place], [address], 4 17:58:22 CMP, serum or plasma [address] [facility], [address] [place], [address], 4 17:58:22 CBC w/ auto diff [address] [facility], [address] [place], [address], 4 17:58:22 TSH + free T4, serum [address] [facility], [address] [place], [address], 4 17:58:23 vitamin D, 25-hydroxy , total, serum [address] [facility], [address] [place], [address], 4 17:58:23 vitamin B12 + folate, serum or blood [address] [facility], [address] [place], [address], 4 17:58:23 lipid panel, serum [address] [facility], [address] [place], [address], 4 17:44:45 CMP, serum or plasma [address] [facility], [address] [place], [address], 4 17:44:46 CBC w/ auto diff [address] [facility], [address] [place], [address], 4 17:44:46 TSH + free T4, serum [address] [facility], [address] [place], [address], 4 17:44:46 vitamin D, 25-hydroxy , total, serum [address] [facility], [address] [place], [address], 4 17:44:47 vitamin B12 + folate, serum or blood [address] [facility], [address] [place], [address], 4 17:44:47 lipid panel, serum [address] [facility], [address] [place], [address], 5 08:24:57 CMP, serum or plasma [address] [facility], [address] [place], [address], 5 08:24:57 CBC w/ auto diff [address] [facility], [address] [place], [address], 5 08:24:57 TSH + free T4, serum [address] [facility], [address] [place], [address], 5 08:24:57 vitamin D, 25-hydroxy , total, serum [address] [facility], [address] [place], [address], 5 08:24:57 noninvasiv e colorectal cancer DNA + occult blood screening, QL, stool 2023 024 [facility] (Cologuard Orders Only), [address], [address], [place], [address], 4 18:05:03 vitamin B12 + folate, serum or blood [address] [facility], [address] [place], [address], 5 08:24:[address] referral 2024 025 [email or web address] Rosy Webber MD, [address], [address], [place], [address], 5 17:17:[address] referral 2024 025 [email or web address] Daysi Gabriel MD, [address] [facility], [address], [place], [address], 5 17:17:[address] referral - Please call patient to schedule. 2024 025 haleigh Don MD, [address], [place], [address], 5 17:19:04 gastroente rologist referral - Please call patient to schedule. 2024 025 haleigh Lemus MD, [address], [address], [place], [address], 5 17:18:[address] referral 2023 024 haleigh Webber MD, [address], [address], [place], [address], 4 08:48:[address] referral 2023 024 haleigh Gabriel MD, [address], [address], [place], [address], 4 08:52:[address] referral - Please call patient to schedule. 2023 024 herminio Don MD, [address], [place], [address], 5 09:03:01 gastroente rologist referral - Please call patient to schedule. 2023 024 [email or web address] Lemus MD, [address], [address], [place], [address], 5 09:03:[address] referral 2023 024 haleigh Webber MD, [address], [address], [place], [address], 4 12:33:[address] referral 2023 024 [email or web address] Gabriel MD, [address], [address], [place], [address], 4 09:54:[address] referral 2023 024 Jonah Don MD, [address], [place], [address], 4 12:35:34 gastroente rologist referral 2023 024 [email or web address] Caroline Maloney MD, [address], [address], [place], [address], 4 12:35:[address] referral 2023 024 [email or web address] Rosy Webber MD, [address], [address], [place], [address], 4 09:13:[address] referral 2023 024 [email or web address] Daysi Gabriel MD, [address], [address], [place], [address], 4 09:13:[address] referral 2023 024 [email or web address] Jonah Don MD, [address], [place], [address], 4 09:13:59 gastroente rologist referral 2023 024 [email or web address] Caroline Maloney MD, [address], [address], [place], [address], 4 09:13:57 Procedures None recorded. Surgeries None recorded. Imaging MAMMO, screening, digital, bilateral - Please call patient to schedule. 2024 025 [email or web address], [address], [address], [place], [address], 5 17:35:25 DEXA, axial skeleton 2024 025 [email or web address] Not available 17:27:41 MAMMO, screening, digital, bilateral 2023 024 [email or web address] [facility], [address], [place] [address], [place], [address], 19:28:51 DEXA, axial skeleton 2023 024 [email or web address] Not available 19:28:30 DEXA, axial skeleton 2023 024 [email or web address] Not available 12:31:19 DEXA, axial skeleton 2023 024 [email or web address] Not available 12:31:29 Medication Orders Trulance 3 mg tablet 2024 025 [place] [id number], [address], [place], [place], [id number], 5 18:35:09 cyclobenza adela 10 mg tablet 2023 024 [place] [facility] #[id number], [address], [place], [place], [id number], 4 17:21:09 cyclobenza adela 10 mg tablet 2023 024 [facility], [address], [place], [place], [id number], 4 23:22:45 Nexletol 180 mg tablet 2023 024 [facility], [address], [place], [place], [id number], 09:37:06 Unithroid 50 mcg tablet 2023 024 [facility], [address] , [place], [place], [id number], 17:23:20 Patient TargetsNo targets recorded. Patient Instructions Encounter Date Encounter Id Patient Instructions Last Modified By Organization Details Last Modified Time 06/27/2024 [id number] [facility] Plan and Screening Recommendations Advance Directives - Do you have one? Advance Directives - Do we have your advance directive on file in your health record? Primary Prevention/Interven tion (prevents or decreases the chance of common diseases from occurring) Smoking Risk: Alcohol Misuse Screening: Weight: Physical activity: Nutrition: Fall Risk (screened today): Vaccines Pneumococcal: Influenza: Chronic Disease Risks Stroke: I have no recommendations Active diagnosis, Continue current treatment plan Heart Attack: I have no recommendations Act vitaliy diagnosis, Continue current treatment plan Clogging of the Arteries: I have no recommendations Act vitaliy diagnosis, Continue current treatment plan Diabetes: Active diagnosis, Continue current treatment plan Secondary Prevention/Interven tion (detects treatable diseases before they may cause symptoms, disability, or ) Breast Cancer Screening with mammogram: Cervical/Uterine/Ov karel Cancer Screening: Osteoporosis Screening: Date Screening Last Performed: Colon Cancer Screening: Date Screening Last Performed: Eye Disease Screening: Dementia Risk: Depression Screening: Active diagnosis, Continue current treatment plan Not available 06/12/2024 17:42:26 Reason for Referral Broommaking Supervisor Referral for Gy necologic examination Referring Physician: Baljinder Alcaraz Internal Medicine, Encounter Date: 06/27/2024 [employer] Member Referral for At rial fibrillation Referring Physician: Baljinder Alcaraz Internal Medicine, Encounter Date: 06/27/2024 Enrollment Advisor Referral for Liver enzymes level above reference range Referring Physician: Baljinder Alcaraz Internal Medicine, Encounter Date: 06/27/2024 Referring Physician: Baljinder Alcaraz Internal Medicine, Encounter Date: 06/27/2024 Broommaking Supervisor Referral for Gy necologic examination Referring Physician: Baljinder Alcaraz Internal Medicine, Encounter Date: 08/22/2024 [employer] Member Referral for At rial fibrillation Referring Physician: Baljinder Alcaraz Internal Medicine, Encounter Date: 08/22/2024 Enrollment Advisor Referral for Liver enzymes level above reference range Referring Physician: Baljinder Alcaraz Internal Medicine, Encounter Date: 08/22/2024 Referring Physician: Baljinder Alcaraz Internal Medicine, Encounter Date: 08/22/2024 Broommaking Supervisor Referral for Gy necologic examination Referring Physician: Misael Grubbs Medicine, Encounter Date: 10/24/2024 [employer] Member Referral for At rial fibrillation Referring Physician: Baljinder Alcaraz Internal Medicine, Encounter Date: 10/24/2024 Enrollment Advisor Referral for Liver enzymes level above reference range Please call patient to schedule. Referring Physician: Misael Grubbs, Encounter Date: 10/24/2024 Please call patient to sched ule. Referring Physician: Misael Grubbs Medicine, Encounter Date: 10/24/2024 Broommaking Supervisor Referral for Gy necologic examination Referring Physician: Baljinder Alcaraz Internal Medicine, Encounter Date: 12/03/2024 [employer] Member Referral for At rial fibrillation Referring Physician: Misael Grubbs Medicine, Encounter Date: 12/03/2024 Enrollment Advisor Referral for Liver enzymes level above reference range Please call patient to schedule. Referring Physician: Misael Grubbs, Encounter Date: 12/03/2024 Please call patient to sched ule. Referring Physician: Baljinder Alcaraz, Internal Medicine, Encounter Date: 12/03/2024 Results Created Date Observation Date Name Description Value Unit Range Abnormal Flag Note LastModifiedBy Organization Detail LastModifiedTime 06/06/20 24 06/06/2024 CBC/C OMPLE TE BLD COUNT W/DIF F white blood cells 4.0 x10'3 /uL 4.2-10 .8 low Not Available [facility] (Lab) [address] [place], [address], 06/06/2024 17:39:36 06/06/20 24 06/06/2024 CBC/C OMPLE TE BLD COUNT W/DIF F red blood cells 4.03 x10'6 /uL 3.80-5 .20 Not Available [facility] (Lab) [address] [place], [address], 06/06/2024 17:39:36 06/06/20 24 06/06/2024 CBC/C OMPLE TE BLD COUNT W/DIF F hemoglobin 12.8 g/dL 12.0-1 5.6 Not Available [facility] (Lab) [address] [place], [address], 06/06/2024 17:39:36 06/06/20 24 06/06/2024 CBC/C OMPLE TE BLD COUNT W/DIF F hematocrit 38.0 % 35.7-4 5.7 Not Available [facility] (Lab) [address] [place], [address], 06/06/2024 17:39:36 06/06/20 24 06/06/2024 CBC/C OMPLE TE BLD COUNT W/DIF F mean red cell volume 94.3 fL 82.0-9 9.0 Not Available [facility] (Lab) [address] [place], [address], 06/06/2024 17:39:36 06/06/20 24 06/06/2024 CBC/C OMPLE TE BLD COUNT W/DIF F mean red cell hemoglobin 31.8 pg 27.0-3 3.0 Not Available [facility] (Lab) [address] [place], [address], 06/06/2024 17:39:36 06/06/20 24 06/06/2024 CBC/C OMPLE TE BLD COUNT W/DIF F mean RBC HGB concentratio n 33.7 g/dL 31.0-3 6.0 Not Available [facility] (Lab) [address] [place], [address], 06/06/2024 17:39:36 06/06/20 24 06/06/2024 CBC/C OMPLE TE BLD COUNT W/DIF F red cell distribution width 12.4 % 11.8-1 5.5 Not Available [facility] (Lab) [address] [place], [address], 06/06/2024 17:39:36 06/06/20 24 06/06/2024 CBC/C OMPLE TE BLD COUNT W/DIF F platelets 295 x10'3 /uL 150-40 0 Not Available [facility] (Lab) [address] [place], [address], 06/06/2024 17:39:36 06/06/20 24 06/06/2024 CBC/C OMPLE TE BLD COUNT W/DIF F mean platelet volume 9.8 fL 9.0-12 .4 Not Available [facility] (Lab) [address] [place], [address], 06/06/2024 17:39:36 06/06/20 24 06/06/2024 CBC/C OMPLE TE BLD COUNT W/DIF F neutrophils 51.4 % 39.0-7 2.0 Not Available [facility] (Lab) [address] [place], [address], 06/06/2024 17:39:36 06/06/20 24 06/06/2024 CBC/C OMPLE TE BLD COUNT W/DIF F lymphocytes 35.3 % 16.0-4 7.0 Not Available [facility] (Lab) [address] [place], [address], 06/06/2024 17:39:36 06/06/20 24 06/06/2024 CBC/C OMPLE TE BLD COUNT W/DIF F monocytes 9.0 % 5.0-12 .0 Not Available [facility] (Lab) [address] [place], [address], 06/06/2024 17:39:36 06/06/20 24 06/06/2024 CBC/C OMPLE TE BLD COUNT W/DIF F eosinophils 3.0 % 1.0-7. 0 Not Available [facility] (Lab) [address] [place], [address], 06/06/2024 17:39:36 06/06/20 24 06/06/2024 CBC/C OMPLE TE BLD COUNT W/DIF F basophils 1.0 % 0.0-2. 0 Not Available [facility] (Lab) [address] [place], [address], 06/06/2024 17:39:36 06/06/20 24 06/06/2024 CBC/C OMPLE TE BLD COUNT W/DIF F immature granulocytes 0.3 % 0.00-0 .50 Not Available [facility] (Lab) [address] [place], [address], 06/06/2024 17:39:36 06/06/20 24 06/06/2024 CBC/C OMPLE TE BLD COUNT W/DIF F neutrophils, absolute count 2.05 x10'3 /uL 1.5-8. 0 Not Available [facility] (Lab) [address] [place], [address], 06/06/2024 17:39:36 06/06/20 24 06/06/2024 CBC/C OMPLE TE BLD COUNT W/DIF F lymphocytes, absolute count 1.41 x10'3 /uL 1.07-3 .43 Not Available [facility] (Lab) [address] [place], [address], 06/06/2024 17:39:36 06/06/20 24 06/06/2024 CBC/C OMPLE TE BLD COUNT W/DIF F monocytes, absolute count 0.36 x10'3 /uL 0.29-0 .99 Not Available [facility] (Lab) [address] [place], [address], 06/06/2024 17:39:36 06/06/20 24 06/06/2024 CBC/C OMPLE TE BLD COUNT W/DIF F eosinophils, absolute count 0.12 x10'3 /uL 0.02-0 .53 Not Available [facility] (Lab) [address] [place], [address], 06/06/2024 17:39:36 06/06/20 24 06/06/2024 CBC/C OMPLE TE BLD COUNT W/DIF F basophils, absolute count 0.04 x10'3 /uL 0.01-0 .08 Not Available [facility] (Lab) [address] [place], [address], 06/06/2024 17:39:36 06/06/20 24 06/06/2024 CBC/C OMPLE TE BLD COUNT W/DIF F immature granulocytes ,absolute 0.01 x10'3 /uL 0.00-0 .05 Not Available [facility] (Lab) [address] [place], [address], 06/06/2024 17:39:36 06/06/20 24 06/06/2024 CBC/C OMPLE TE BLD COUNT W/DIF F nucleated red blood cells 0.0 % -0 Not Available [facility] (Lab) [address] [place], [address], 06/06/2024 17:39:36 06/06/20 24 06/06/2024 CBC/C OMPLE TE BLD COUNT W/DIF F NRBC# 0.00 x10'3 /uL Not Available [facility] (Lab) [address] [place], [address], 06/06/2024 17:39:36 06/06/20 24 06/06/2024 LIPID PANEL cholesterol 131 mg/dL 140-19 9 low NIH HANG NSUS RECOM MENDA TION FOR KEVIN STERO L: ADULT CHILD LOW RISK: <200 <170 BORDE RLINE : <200- 239 ----- HIGH RISK: >240 >200 Not Available [facility] (Lab) [address] [place], [address], 06/06/2024 17:58:20 06/06/20 24 06/06/2024 LIPID PANEL triglyceride s 80 mg/dL 0-150 NIH HANG NSUS REPOR T RECOM MENDA TION FOR TRIGL YCERI KORINA: ADULT CHILD LOW RISK: <150 ----- BODER LINE: 150-1 99 ----- HIGH RISK: >200 ----- Not Available [facility] (Lab) [address] [place], [address], 06/06/2024 17:58:20 06/06/20 24 06/06/2024 LIPID PANEL HDL cholesterol 59 mg/dL 40- Not Available [facility] (Lab) [address] [place], [address], 06/06/2024 17:58:20 06/06/20 24 06/06/2024 LIPID PANEL LDL cholesterol, calculated 56 mg/dL 0-130 NIH HANG NSUS REPOR T RECOM MENDA TIONS FOR LDL: ADULT CHILD LOW RISK <130 <110 (OPTI MAL LDL) <100 ----- BORDE RLINE : 130-1 59 ----- HIGH RISK: >160 >130 A TRIGL YCERI DE RESUL T >400 INVAL IDATE S THE CALCU LATIO N FOR LDL FRACT IONAT ION - THE LDL RESUL T WILL NOT BE REPOR ANA. Not Available [facility] (Lab) [address] [place], [address], 06/06/2024 17:58:20 06/06/20 24 06/06/2024 COMPR EHENS VITALIY METAB OLIC PANEL sodium 137 mmol/ L 137-14 5 Not Available [facility] (Lab) [address] [place], [address], 06/06/2024 17:58:24 06/06/20 24 06/06/2024 COMPR EHENS VITALIY METAB OLIC PANEL potassium 4.0 mmol/ L 3.5-5. 1 Not Available [facility] (Lab) [address] [place], [address], 06/06/2024 17:58:24 06/06/20 24 06/06/2024 COMPR EHENS VITALIY METAB OLIC PANEL chloride 109 mmol/ L 98-107 high Not Available [facility] (Lab) [address] [place], [address], 06/06/2024 17:58:24 06/06/20 24 06/06/2024 COMPR EHENS VITALIY METAB OLIC PANEL carbon dioxide 27 mmol/ L 22-30 Not Available [facility] (Lab) [address] [place], [address], 06/06/2024 17:58:24 06/06/20 24 06/06/2024 COMPR EHENS VITALIY METAB OLIC PANEL anion gap 5.0 mmol/ L 14-22 low Not Available [facility] (Lab) [address] [place], [address], 06/06/2024 17:58:24 06/06/20 24 06/06/2024 COMPR EHENS VITALIY METAB OLIC PANEL glucose 124 mg/dL 70-99 high Not Available [facility] (Lab) [address] [place], [address], 06/06/2024 17:58:24 06/06/20 24 06/06/2024 COMPR EHENS VITALIY METAB OLIC PANEL BUN 15 mg/dL 8-19 Not Available [facility] (Lab) [address] [place], [address], 06/06/2024 17:58:24 06/06/20 24 06/06/2024 COMPR EHENS VITALIY METAB OLIC PANEL creatinine 0.76 mg/dL 0.66-1 .25 Not Available [facility] (Lab) [address] [place], [address], 06/06/2024 17:58:24 06/06/20 24 06/06/2024 COMPR EHENS VITALIY METAB OLIC PANEL GFR >60 Refer ence Range : [place] ge GFR Healt hy Adult : >60 mL/mi n/1.7 3 m2 Chron ic Kidne y Disea se: 15-60 mL/mi n/1.7 3 m2 Kidne y Failu re: <15/m L/min /1.73 m2 www.n iddk. nih.g ov The MDRD study equat ion has not been valid ated in child d[place] <18 years of age; pregn ant women ; the elder ly >85 years of age; or in some racia l or ethni c subgr oups, such as Hismn nics. Outsi de the valid ated margarita eters , estim ated GFR is less accur ate, requi ring clini aashish judgm ent on a case- by-ca se basis . Clini aashish inter preta tion for other races and ages must be made by the clini michelle. The MDRD study equat ion has not been valid ated for the evalu ation of serum creat inine relat ed to nutri maye l statu s or medic ation usage . For perso ns <18 years of age, a pedia tric GFR calcu lator is avail able on the NK websi te: https ://raji page.[facility] [place].ibis pugh/pr ofess ional s/kdo qi/gf r_cal culat or Not Available [facility] (Lab) [address] [place], [address], 06/06/2024 17:58:24 06/06/20 24 06/06/2024 COMPR EHENS VITALIY METAB OLIC PANEL alkaline phosphatase 131 U/L 38-126 high Not Available [facility] (Lab) [address] [place], [address], 06/06/2024 17:58:24 06/06/20 24 06/06/2024 COMPR EHENS VITALIY METAB OLIC PANEL alanine aminotransfe rase 27 U/L 0-35 Not Available [facility] (Lab) [address] [place], [address], 06/06/2024 17:58:24 06/06/20 24 06/06/2024 COMPR EHENS VITALIY METAB OLIC PANEL aspartate aminotransfe rase 39 U/L 15-37 high Not Available [facility] (Lab) [address] [place], [address], 06/06/2024 17:58:24 06/06/20 24 06/06/2024 COMPR EHENS VITALIY METAB OLIC PANEL bilirubin, total 0.40 mg/dL 0.20-1 .30 Not Available [facility] (Lab) [address] [place], [address], 06/06/2024 17:58:24 06/06/20 24 06/06/2024 COMPR EHENS VITALIY METAB OLIC PANEL calcium 8.7 mg/dL 8.4-10 .2 Not Available [facility] (Lab) [address] [place], [address], 06/06/2024 17:58:24 06/06/20 24 06/06/2024 COMPR EHENS VITALIY METAB OLIC PANEL total protein 6.3 g/dL 6.3-8. 2 Not Available [facility] (Lab) [address] [place], [address], 06/06/2024 17:58:24 06/06/20 24 06/06/2024 COMPR EHENS VITALIY METAB OLIC PANEL albumin 3.5 g/dL 3.4-5. 0 Not Available [facility] (Lab) [address] [place], [address], 06/06/2024 17:58:24 06/06/20 24 06/06/2024 COMPR EHENS VITALIY METAB OLIC PANEL globulin 2.8 g/dL 2.6-4. 2 Not Available [facility] (Lab) [address] [place], [address], 06/06/2024 17:58:24 06/06/20 24 06/06/2024 COMPR EHENS VITALIY METAB OLIC PANEL A/G ratio 1.3 ratio 1.0-2. 0 Not Available [facility] (Lab) [address] [place], [address], 06/06/2024 17:58:24 06/06/20 24 06/06/2024 GGT/G -GLUT AMYL TRANS FERAS E gamma-glutam yl transferase 12 U/L 12-43 Not Available [facility] (Lab) [address] [place], [address], 06/06/2024 17:58:29 06/06/20 24 06/06/2024 VITAM IN D 25-HY DROXY [id number] 54.3 NG/mL 30-100 Vitam in D Statu s: Defic ient: <20 ng/mL Insuf ficie nt: 20-29 ng/mL Suffi cient : 30-10 0 ng/mL Not Available [facility] (Lab) [address] [place], [address], 06/06/2024 18:20:51 06/06/20 24 06/06/2024 T4 FREE free T4 1.08 NG/dL 0.78-2 .19 Not Available [facility] (Lab) [address] [place], [address], 06/06/2024 18:21:11 06/06/20 24 06/06/2024 HEPAT ITIS ACUTE PANEL hepatitis A IgM antibody NON-RE ACTIVE non-re active For sampl es repor ana as Borde hayleyine React vitaliy for HAV IgM, it is recom ade d a new speci men be obtai cruzito in 2 weeks and retes ana. Not Available [facility] (Lab) [address] [place], [address], 06/06/2024 18:52:11 06/06/20 24 06/06/2024 HEPAT ITIS ACUTE PANEL hepatitis A virus signal/cutof 0.01 0.00-0 .79 Not Available [facility] (Lab) [address] [place], [address], 06/06/2024 18:52:11 06/06/20 24 06/06/2024 HEPAT ITIS ACUTE PANEL hepatitis B core IgM antibody NON-RE ACTIVE non-re active Not Available [facility] (Lab) [address] [place], [address], 06/06/2024 18:52:11 06/06/20 24 06/06/2024 HEPAT ITIS ACUTE PANEL HBV core IgM signal/cutof f 0.03 0.00-1 .10 Not Available [facility] (Lab) [address] [place], [address], 06/06/2024 18:52:11 06/06/20 24 06/06/2024 HEPAT ITIS ACUTE PANEL hepatitis B surface antigen NON-RE ACTIVE non-re active All speci mens react vitaliy for Hepat itis B Surfa ce Antig en will refle x to refer ral lab confi rmato ry testi ng. Not Available [facility] (Lab) [address] [place], [address], 06/06/2024 18:52:11 06/06/20 24 06/06/2024 HEPAT ITIS ACUTE PANEL HBV surf.antigen signal/cutof f 0.13 0.00-0 .99 Not Available [facility] (Lab) [address] [place], [address], 06/06/2024 18:52:11 06/06/20 24 06/06/2024 HEPAT ITIS ACUTE PANEL hepatitis C antibody NON-RE ACTIVE non-re active All speci mens react vitaliy for Hepat itis C Virus antib leila will refle x to PCR confi rmato ry testi ng. Pleas e allow 48-72 hours for resul ts. Not Available [facility] (Lab) [address] [place], [address], 06/06/2024 18:52:11 06/06/20 24 06/06/2024 HEPAT ITIS ACUTE PANEL hepatitis C virus signal/cutof 0.02 0.00-0 .99 Not Available [facility] (Lab) [address] [place], [address], 06/06/2024 18:52:11 06/06/20 24 06/06/2024 TSH thyroid-stim ulating hormone <0.015 uIU/m L 0.465- 4.680 low Not Available [facility] (Lab) [address] [place], [address], 06/06/2024 18:38:18 06/06/20 24 06/06/2024 VITAM IN B12 (JASMIN RICARDO ) vb12 >1000 pg/mL 239-93 1 high Not Available [facility] (Lab) [address] [place], [address], 06/06/2024 19:20:49 06/06/20 24 06/06/2024 FOLAT E, SERUM /PLAS MA folate >20.0 NG/mL 2.76-2 0.0 Not Available [facility] (Lab) [address] [place], [address], 06/06/2024 19:21:04 06/06/20 24 06/07/2024 PROTE IN ELECT RO.,S protein, total 5.8 g/dL 6.0-8. 5 low Not Available [facility] (Lab) [address] [place], [address], 06/07/2024 16:13:27 06/06/20 24 06/07/2024 PROTE IN ELECT RO.,S albumin 3.1 g/dL 2.9-4. 4 Not Available [facility] (Lab) [address] [place], [address], 06/07/2024 16:13:27 06/06/20 24 06/07/2024 PROTE IN ELECT RO.,S ayhgg-6-ftzp ulin 0.2 g/dL 0.0-0. 4 Not Available [facility] (Lab) [address] [place], [address], 06/07/2024 16:13:27 06/06/20 24 06/07/2024 PROTE IN ELECT RO.,S ptfkw-7-etjy ulin 0.5 g/dL 0.4-1. 0 Not Available [facility] (Lab) [address] [place], [address], 06/07/2024 16:13:27 06/06/20 24 06/07/2024 PROTE IN ELECT RO.,S beta globulin 0.9 g/dL 0.7-1. 3 Not Available [facility] (Lab) [address] [place], [address], 06/07/2024 16:13:27 06/06/20 24 06/07/2024 PROTE IN ELECT RO.,S gamma globulin 1.0 g/dL 0.4-1. 8 Not Available [facility] (Lab) [address] [place], [address], 06/07/2024 16:13:27 06/06/20 24 06/07/2024 PROTE IN ELECT RO.,S M-spike NOT OBSERV ED g/dL not observ ed Not Available [facility] (Lab) [address] [place], [address], 06/07/2024 16:13:27 06/06/20 24 06/07/2024 PROTE IN ELECT RO.,S globulin, total 2.7 g/dL 2.2-3. 9 Not Available [facility] (Lab) [address] [place], [address], 06/07/2024 16:13:27 06/06/20 24 06/07/2024 PROTE IN ELECT RO.,S A/G ratio 1.1 0.7-1. 7 Not Available [facility] (Lab) [address] [place], [address], 06/07/2024 16:13:27 06/06/20 24 06/07/2024 PROTE IN ELECT RO.,S please note: CANDIDA T . Prote in elect [facility] resis scan will follo w via compu ter, mail, or couri er rich [facility]. Not Available [facility] (Lab) [address] [place], [address], 06/07/2024 16:13:27 06/06/20 24 06/07/2024 PROTE IN ELECT RO.,S pdf . Perfo rmed at: - [facility] [address] [facility], [place] [address] Lab Direc tor: Keny rogers PhD, Phone : [phone] Not Available [facility] (Lab) [address] [place], [address], 06/07/2024 16:13:27 06/05/20 24 US, head + neck, soft tissu e [facility] [address] [place] [address] [phone] Patien t Name: SHIRLENE RAMIREZ Access ion #: [id number] Sex: F : 1964 8 Dictat ed By: Azam Dunbar Attend ing Physic brian: KRYSTALLARISSA STEVENS Orderchristy ng Physic brian: KRYSTALLARISSA STEVENS Exam Date: 2023 08:10 AM Exam Name: US NECK/H EAD SOFT TISSUE Admitt ing Diagno sis(es ): ULTRAS OUND SOFT TISSUE [facility] INDICA TION: pain TECHNI QUE: Multip le real time sonogr aphic images of the thyroi d were obtain ed. FINDIN GS: The right thyroi d gland measur es 4 cm. The left thyroi d gland measur es approx imatel y 4 cm. The isthmu s measur es 0.4 cm. Multip le bilate ral TI-RAD S 3 nodule s measur ing up to 0.7 cm. Follow -up in 1 year. IMPRES RUBEN: Multip le bilate ral TI-RAD S 3 nodule s measur ing up to 0.7 cm. Follow -up in 1 year. Americ emery keen of Radiol ogy TI-RAD S Catego ricardo and Recomm endati ons (2017) : TR1: 0 points , Benign , No FNA TR2: 2 points , Not suspic ious, No FNA TR3: 3 points , Mildly suspic ious, FNA if > or = 2.5 cm, Follow if > or = 1.5 cm Page 1 [facility] [address], [place] [address] Patien t Name: SHIRLENE RAMIREZ Access ion #: [id number] Sex: F : 1964 8 Dictat ed By: Azam Dunbar Attend ing Physic brian: LARISSA Varela KRYSTALDINA LOFTON Orderchristy ng Physic brian: KRYSTALLARISSA STEVENS Exam Date: 2023 08:10 AM Exam Name: US NECK/H EAD SOFT TISSUE Admitt ing Diagno sis(es ): TR4: 4-6 points , Modera tely Suspic ious, FNA if > or = 1.5 cm, Follow if > or = 1.0 cm TR5: 7+ points , Highly Suspic ious, FNA if > or = 1.0 cm, Follow if > or = 0.5 cm Follow -up ultras ound guidel ishmael: TR5: yearly for 5 years, if no growth or change in TI-RAD S level TR4: at 1, 2, 3 and 5 years, if no growth or change in TI-RAD S level TR3: at 1, 3 and 5 years, if no growth or change in TI-RAD S level If increa sed but below thresh old for FNA, repeat in one year. Source : ACR Thyroi d Cristine g, Report ing and Data System (TI-RA DS): White Paper of the ACR TI-RAD S Commit jose. Jennifer et al., J Am Sixto Radiol 2017;1 4:587- 595. Electr onical ly Signed by: Azam Dunbar at 2023 10:29: 49 AM Page 2 [email or web address] [facility] (Imaging) [address] [place], [address], 09/25/2024 15:58:27 06/05/20 24 06/05/2024 US, thyro id No observ ation record ed. [email or web address] [facility] [address] [place], [address], 09/25/2024 15:58:27 06/05/20 24 US, abdom en, limit ed [facility] [address] [place] [address] [phone] Patien t Name: SHIRLENE RAMIREZ Access ion #: [id number] Sex: F : 1964 8 Dictat ed By: Azam Dunbar Attend ing Physic brian: LARISSA RAZA Physic brian: LARISSA RAZA Exam Date: 2023 08:18 AM Exam Name: US ABD/LT D/ORG/ UQ/GB Admitt ing Diagno sis(es ): INDICA TION: elevat ed liver enzyme s TECHNI QUE: Multip le real-t amelia sonogr aphic images were obtain ed of the right upper quadra nt. COMPAR MONCHO: None FINDIN GS: The liver demons trates homoge nous echote xture withou t focal mass lesion s. The liver measur es 18 cm. There is no intrah epatic or extrah epatic ductal dilata tion. The common duct measur es 0.7 mm. Gallbl adder remove d. The right kidney measur es 10 cm. The right kidney is normal in contou r, size, and shape. The echoge nicity is normal . There is no hydron ephros is. The pancre as is not well visual ized due to overly ing bowel gas. IMPRES RUBEN: 1. No sonogr aphic eviden ce of gallst ones or acute cholec ystiti s. Electr onical ly Signed by: Azam Dunbar at 2023 10:42: 40 AM Page 1 [facility] (Imaging) [address] [place], [address], 09/25/2024 15:58:28 06/05/20 24 06/05/2024 US, liver No observ ation record ed. [email or web address] [facility] [address] [place], [address], 09/25/2024 15:58:29 09/12/20 24 09/11/2024 imagi ng/di agnos tic resul t No observ ation record ed. [facility] [address], [place], [address], 09/12/2024 16:46:34 09/14/20 24 09/11/2024 imagi ng/di agnos tic resul t No observ ation record ed. [facility] [address], [place], [address], 09/14/2024 18:06:50 01/31/20 25 01/30/2025 geraldi heather/savanna sears tic resul t No observ ation record ed. [facility] [address], [place], [address], 01/30/2025 18:46:53 Result Notes None recorded. Problems Name Problem SNOMED Code Status Onset Date Resolution Date Notes Provider Name and Address Organization Details Recorded Time Cervical lymphadeno antonietta 443518343 Active Not Available [facility] 3 09:28:08 Constipati on 24858786 Active Not Available [facility] 3 09:28:08 Nausea and vomiting 23170417 Active Not Available [facility] 3 09:28:08 Gallstone 206682452 Active Not Available [facility] 3 09:28:08 Morbid obesity 469632038 Active Not Available [facility] 3 09:28:09 Osteoarthr itis of knee 650248737 Active Not Available [facility] 3 09:28:09 Urinary symptoms 321665622 Active Not Available [facility] 3 09:28:09 Dyspnea 763705561 Active Not Available [facility] 3 09:28:09 Dupuytren' s contractur e of finger 050742935 Active right 5th toe Not Available [facility] 3 09:28:09 Low back pain 698094874 Active Not Available [facility] 3 09:28:09 Eruption caused by drug 22964435 Active Not Available [facility] 3 09:28:09 Depressive disorder 76917292 Active Not Available [facility] 3 09:28:09 Mass of soft tissue 781376363 Active 2021 Not Available [facility] 3 09:28:09 Foot pain 67281272 Active 2021 Not Available [facility] 3 09:28:09 Acute blephariti s 23529728 Active Not Available [facility] 3 09:28:09 Upper respirator y infection 03185657 Active 2022 Holly Velarde MD [address], [place], [address] , [facility] 3 10:14:11 Fracture of foot 20387877 Active 2022February 04, 2023 KERVIN Garcia [address], [place], [address] , [facility] 3 16:47:16 Muscle pain 98737821 Active 2022 KERVIN Garcia [address], [address], [place], [address] , [facility] 3 17:04:22 Insomnia 516277961 Active 2022 Holly Velarde MD [address], [place], [address] , [facility] 3 14:10:47 Persistent insomnia 995926159 Active 2022 Holly Velarde MD [address], [place], [address] , [facility] 3 11:10:35 Fracture of lower leg 910169241 Active 2022 Holly Velarde MD [address], [place], [address] , [facility] 3 08:48:23 Pain in lower limb 81580555 Active 2022 Holly Velarde MD [address], [place], [address] , [facility] 3 09:20:53 Pain in bilateral legs 1325753286088 9108 Active 2022 Holly Velarde MD [address], [place], [address] , [facility] 3 16:45:07 Acute pharyngiti s 936038682 Active 2022 KERVIN Garcia [address], [place], [address] , [facility] [employer] [facility] [employer] [facility] 3 10:18:07 Fracture of tibia 61519114 Active 2023 Baljinder varela MD [address], [place], [address] , [facility] [employer] [facility] [employer] [facility] 4 16:17:31 Atrial fibrillati on 97925524 Active 2023 Baljinder varela MD [address], [place], [address] , [facility] [employer] [facility] [employer] [facility] 4 16:18:33 Vitamin D deficiency 70741290 Active 2023 Baljinder varela MD [address], [place], [address] , [facility] [employer] [facility] [employer] [facility] 4 16:19:41 Serum vitamin B12 below reference range 274601059 Active 2023 Baljinder varela MD [address], [place], [address] , [facility] [employer] [facility] [employer] [facility] 4 16:19:50 Excess panniculus of abdomen 9023351371499 Active 2023 Baljinder varela MD [address], [place], [address] , [facility] [employer] [facility] [employer] [facility] 4 17:12:47 Chronic constipati on 793143998 Active 2023 Baljinder varela MD [address], [place], [address] , [facility] [employer] [facility] [employer] [facility] 4 17:13:25 Seasonal allergic rhinitis 133980931 Active 2023 SONG Angel, [facility] [employer] [facility] 4 11:28:07 Irritable bowel syndrome 39262555 Active 2023 Latisha Roberts MA null, [place] [facility] [facility] 4 12:18:55 Hypothyroi dism 68449173 Active 2023 Baljinder varela MD [address], [place], [address] , [facility] 4 18:48:43 Liver enzymes level above reference range 259870830 Active 2023 Baljinder varela MD [address], [place], [address] , [facility] 4 18:50:01 Leukopenia 71724301 Active 2023 Baljinder varela MD [address], [place], [address] , [facility] 4 18:50:54 Neuropathy 146398855 Active 2023 Baljinder varela MD [address], [place], [address] , [facility] 4 16:34:06 Hyperlipid emia 37615968 Active 2023 Baljinder varela MD [address], [place], [address] , [facility] 4 16:37:25 Hypoprotei nemia 4610762 Active 2023 Baljinder varela MD [address], [place], [address] , [facility] 4 16:41:15 Spasm 40387627 Active 2023 Baljinder varela MD [address], [place], [address] , [facility] 4 17:44:14 Fracture of tibia 60721821 Active 2024 Baljinder varela MD [address] [address], [place], [address] , [facility] [employer] [facility] 13:54:39 Problem Notes None recorded. Procedures Surgical History Date Name Laterality Status Provider Name and Address Organization Details Recorded Time 09/24/20 Orthopedic Surgery completed SONG Angel [facility] [employer] [facility] 10/24/2024 17:01:12 07/13/20 24 Chronic care management services completed Alecia Escobedo RN [facility] [employer] [facility] 07/13/2024 14:21:59 06/27/20 Medicare Wellness CPT Code, subsequent completed Gilles Abel LPN [facility] [employer] [facility] 06/12/2024 17:42:26 06/18/20 24 Chronic care management services completed Alecia Escobedo RN [facility] [employer] [facility] 06/18/2024 17:48:01 05/11/20 24 Chronic care management services completed Alecia Escobedo RN [facility] [employer] [facility] 05/11/2024 10:15:09 03/28/20 24 Chronic care management services completed Alecia Escobedo RN [facility] [employer] [facility] 03/28/2024 12:50:08 12/31/19 24 screening mammography completed Iliana Thomas RN [facility] [employer] [facility] 01/03/2024 16:54:13 total knee replacement completed Inge Child MA [facility] [employer] [facility] 03/15/2024 16:06:37 section completed Inge Child MA [facility] [employer] [facility] 03/15/2024 16:06:56 cholecystectomy completed Inge Child MA [facility] [employer] [facility] 03/15/2024 16:07:44 Orthopedic Surgery completed SONG Angel [facility] [employer] [facility] 04/10/2024 16:13:19 Imaging Results Imaging Date Name Status LastModified by Organiz ation Details LastModified Time 06/05/2024 US, head + neck, soft tissue completed [email or web address] [facility] ([facility] [address] [place], [address], 09/25/2024 15:58:27 06/05/2024 US, thyroid completed [email or web address] [facility] [address] [place], [address], 09/25/2024 15:58:27 06/05/2024 US, abdomen, limited completed [email or web address] [facility] [address] [place], [address], 09/25/2024 15:58:28 06/05/2024 US, liver completed [email or web address] [facility] [address] [place], [address], 09/25/2024 15:58:29 09/11/2024 imaging/diag nostic result active [facility] [address], [place], [address], 09/12/2024 16:46:34 09/11/2024 imaging/diag nostic result active [facility] [address], [place], [address], 09/14/2024 18:06:50 01/30/2025 imaging/diag nostic result active [facility] [address], [place], [address], 01/30/2025 18:46:53 Procedure Notes None recorded. Medical Equipment None Reported. Allergies No known drug allergies Medications Name Sig Start Date Stop Date Status Note LastModified by Organization Details LastModified Time Prescript ion - Prior Authoriza tion Request 03/15 completed Not Available Not Available Not Available cyclobenz aprine 10 mg tablet TAKE 1 TABLET BY MOUTH EVERY DAY NEEDED. NO ALCOHOL, DRIVING, OR OTHER SEDATING MEDICATI ONS 2024 active Not Available Not Available Not Avai lable amoxicill in 500 mg capsule 12/03 completed Not Available Not Available Not Available medroxypr ogesteron e 10 mg tablet active Not Available Not Available Not Available Mirena 21 mcg/24 hr (up to 8 years) 52 mg intrauter ine device Take by intraute rine route. 03/15 completed Not Available Not Available Not Available atorvasta tin 40 mg tablet Take 1 tablet every day by oral route at bedtime for 30 days. 03/15 completed Not Available Not Available Not Available methocarb yumiko 500 mg tablet 08/22 completed Not Available Not Available Not Available atorvasta tin 80 mg tablet active Not Available Not Available Not Available gabapenti n 600 mg tablet Take 1 tablet 3 times a day by oral route for 90 days. 10/01 completed Not Available Not Available Not Available atorvasta tin 20 mg tablet active Not Available Not Available Not Available cetirizin e 10 mg tablet TAKE 1 TABLET BY MOUTH EVERY DAY 01/08 completed Not Available Not Available Not Available clarithro mycin 250 mg tablet active Not Available Not Available No t Available azithromy bereket 250 mg tablet TAKE 2 TABLETS (500 MG) BY ORAL ROUTE ONCE DAILY FOR 1 DAY THEN 1 TABLET (250 MG) BY ORAL ROUTE ONCE DAILY FOR 4 DAYS 03/15 completed Not Available Not Available Not Available Lidocaine Viscous 2 % mucosal solution 08/22 completed Not Available Not Available Not Available fluconazo le 150 mg tablet Take 1 tablet every day by oral route for 1 day. 02/23 completed Not Available Not Available Not Available valacyclo vir 1 gram tablet Take 2 tablets every 12 hours by oral route for 1 day. 03/15 completed Not Available Not Available Not Available hydrocodo ne 5 mg-acetam inophen 325 mg tablet Take 1 tablet every 6 hours by oral route. 10/24 completed Not Available Not Available Not Available senna 8.6 mg tablet Take 2 tablets every day by oral route as needed. 03/15 completed for constipa tion Not Available Not Available Not Available sucralfat e 1 gram tablet active Not Available Not Available Not Available promethaz ine 12.5 mg tablet active Not Available Not Available No t Available gabapenti n 400 mg capsule TAKE 1 CAPSULE BY MOUTH THREE TIMES DAILY NEEDED 03/15 completed Not Available Not Available Not Available acetamino phen 300 mg-codein e 30 mg tablet 02/18 /2022 completed Not Available Not Available Not Available ciproflox acin 250 mg tablet active Not Available Not Available No t Available ciproflox acin 500 mg tablet Take 1 tablet every 12 hours by oral route for 7 days. 03/15 completed Not Available Not Available Not Available sulfameth oxazole 800 mg-trimet hoprim 160 mg tablet 08/22 completed Not Available Not Available Not Available peg-elect rolyte solution 420 gram oral solution 10/04 completed Not Available Not Available Not Available tramadol 50 mg tablet active Not Available Not Available Not Available triamcino lone acetonide 0.1 % topical cream Apply 1 applicat ion twice a day by topical route as needed. active Not Available Not Available No t Available amoxicill in 500 mg tablet active Not Available Not Available Not Available oxycodone -acetamin ophen 5 mg-325 mg tablet active Not Available Not Available Not Available amoxicill in 875 mg tablet 09/17 completed Not Available Not Available Not Available famotidin e 20 mg tablet active Not Available Not Available Not Available temazepam 15 mg capsule 06/04 completed Not Available Not Available Not Available hydrocodo ne 7.5 mg-acetam inophen 325 mg tablet 02/23 completed Not Available Not Available Not Available cephalexi n 500 mg capsule 03/15 completed Not Available Not Available Not Available Unithroid 50 mcg tablet TAKE 1 TABLET BY MOUTH EVERY DAY active Not Available Not Available No t Available oseltamiv ir 75 mg capsule Take 1 capsule twice a day by oral route for 5 days. 03/15 completed Not Available Not Available Not Available clotrimaz ole-betam ethasone 1 %-0.05 % topical cream APPLY TO THE AFFECTED AND SURROUND ING AREAS OF SKIN BY TOPICAL ROUTE 2 TIMES PER DAY IN THE MORNING AND EVENING FOR 2 WEEKS 08/22 completed Not Available Not Available Not Available ursodiol 300 mg capsule active Not Available Not Available Not Available polymyxin B sulfate 10,000 unit-trim ethoprim 1 mg/mL eye drops active Not Available Not Available No t Available warfarin 5 mg tablet Take 1 tablet every day by oral route for 45 days. 10/04 completed Not Available Not Available Not Available gabapenti n 300 mg capsule Take 1 capsule 3 times a day by oral route for 10 days. 2024 active Not Available Not Available Not Avai lable omeprazol e 20 mg capsule,d elayed release 01/08 completed Not Available Not Available Not Available diclofena c sodium 75 mg tablet,de layed release active Not Available Not Available Not Available diltiazem CD 120 mg capsule,e xtended release 24 hr 09/28 completed Not Available Not Available Not Available monteluka st 10 mg tablet TAKE 1 TABLET BY MOUTH EVERY DAY active Not Available Not Available No t Available hydroxyzi ne HCl 25 mg tablet 02/23 completed Not Available Not Available Not Available hydrocodo ne 5 mg-acetam inophen 500 mg tablet active Not Available Not Available Not Available zolpidem 5 mg tablet Take 1 tablet every day by oral route as needed for 30 days. 03/15 completed Not Available Not Available Not Available norethind colby acetate 5 mg tablet active Not Available Not Available No t Available warfarin 1 mg tablet 08/22 completed Not Available Not Available Not Available ibuprofen 600 mg tablet 08/22 completed Not Available Not Available Not Available levofloxa bereket 500 mg tablet active Not Available Not Available No t Available zolpidem 10 mg tablet TAKE 1 TABLET BY MOUTH EVERY NIGHT AT BEDTIME 03/15 completed Not Available Not Available Not Available methylpre dnisolone 4 mg tablets in a dose pack Take by oral routeas directed 10/04 completed Not Available Not Available Not Available ondansetr on 4 mg disintegr ating tablet Take 1 tablet every 8 hours by oral route as needed. 01/08 completed Not Available Not Available Not Available diazepam 5 mg tablet active Not Available Not Available Not Available metoclopr amide 10 mg tablet Take 1 tablet 3 times a day by oral route with meals. active Not Available Not Available No t Available amoxicill in 875 mg-potass ium clavulana te 125 mg tablet Take 1 tablet every 12 hours by oral route. active Not Available Not Available No t Available Tylenol Extra Strength 500 mg tablet Take 2 tablets as needed by oral route. active Not Available Not Available No t Available oxycodone 5 mg tablet 03/15 completed Not Available Not Available Not Available Blephamid e S.O.P. 10 %-0.2 % eye ointment active Not Available Not Available Not Available enoxapari n 100 mg/mL subcutane ous syringe active Not Available Not Available Not Available enoxapari n 40 mg/0.4 mL subcutane ous syringe 02/23 completed Not Available Not Available Not Available medroxypr ogesteron e 150 mg/mL intramusc ular syringe active Not Available Not Available Not Available cyclobenz aprine 5 mg tablet Take 1 tablet twice a day by oral route as needed for 60 days. 03/15 completed Not Available Not Available Not Available metoprolo l tartrate 25 mg tablet Take 0.5 tablets twice a day by oral route for 30 days. 01/08 completed Not Available Not Available Not Available Tylenol 03/28 completed Not Available Not Available Not Available cyclobenz aprine 03/07 completed Not Available Not Available Not Available oxycodone 10 mg tablet Take 1 tablet every 8 hours by oral route as needed for 7 days. 03/15 completed Not Available Not Available Not Available Amitiza 8 mcg capsule Take 1 capsule twice a day by oral route. active Not Available Not Available No t Available Linzess 145 mcg capsule TAKE 1 CAPSULE BY MOUTH EVERY DAY NEEDED(N OT EVERY DAY) 12/03 completed Not Available Not Available Not Available Eliquis 5 mg tablet Take by oral route for 90 days. active takes bid Not Available Not Available Not Available Trulance 3 mg tablet Take 1 tablet every day by oral route as needed for 30 days. 2024 active Not Available Not Available Not Avai lable Nexletol 180 mg tablet TAKE 1 TABLET BY MOUTH EVERY DAY 2024 active Not Available Not Available Not Avai lable Vitals Date Recorded Body height Body temperature Heart rate Oxygen saturation Oxygen saturation in Arterial blood by Pulse oximetry Systolic blood pressure Diastolic blood pressure Provider Name and Address Organization Details Last Updated DateTime 4 167.64 cm 98 [degF] 61 /min 97 % 97 % 122 mm[Hg] 72 mm[Hg] Inge Child [place] - [place] [employer] 4 17:28:02 Date Recorded Body height Body temperature Heart rate Oxygen saturation Oxygen saturation in Arterial blood by Pulse oximetry Pain severity - 0-10 verbal numeric rating [Score] - Reported Systolic blood pressure Diastolic blood pressure Provider Name and Address Organization Details Last Updated DateTime 4 167.64 cm 97 [degF] 69 /min 99 % 99 % 0 116 mm[Hg] 70 mm[Hg] Inge Child MA [facility] [employer] [facility] 4 16:57:27 Date Recorded Body height Body temperature Heart rate Systolic blood pressure Diastolic blood pressure Provider Name and Address Organization Details Last Updated DateTime 10/24/2024 167.64 cm 97.6 [degF] 72 /min 102 mm[Hg] 70 mm[Hg] Radha Steinberg June [facility] 4 17:03:28 Date Recorded Body height Body temperature Heart rate Systolic blood pressure Diastolic blood pressure Provider Name and Address Organization Details Last Updated DateTime 12/03/2024 167.64 cm 97.3 [degF] 72 /min 124 mm[Hg] 80 mm[Hg] Radha Steinberg June [facility] 5 17:33:00 Date Recorded Body weight Provider Name an d Address Organization Details Last Updated DateTime 12/26/2024 399840.74 g Radha Steinberg [facility] I [facility] 12/28/2024 14:45:33 Social History Question Answer Notes LastModified by Organization Details LastModified Time Tobacco Smoking Status Never Smoker [email or web address] 06/20/2023 10:48:10 Do You Have An Advance Directive? Yes DNR In Chart [id number] Information not available 01/19/2023 What Is Your Level Of Alcohol Consumption? None [id number] Information not available 01/19/2023 Is Blood Transfusion Acceptable In An Emergency? Yes Information not available 03/28/2024 What Is Your Level Of Caffeine Consumption? Moderate Information not available 03/15/2024 What Is Your Code Status? DNR [email or web address] Information not available 03/28/2024 In The 14 Days Before Symptom Onset, Have You Had Close Contact With A Laboratory-conf irmed COVID-19 While That Case Was Ill? No Information not available 03/15/2024 In The 14 Days Before Symptom Onset, Have You Had Close Contact With A Person Who Is Under Investigation For COVID-19 While That Person Was Ill? No Information not available 03/15/2024 Are You Currently Employed? No [email or web address] Information not available 03/28/2024 What Type Of Diet Are You Following? REGULAR [id number] Information not available 01/19/2023 What Is Your Occupation? None [email or web address] Information not available 06/20/2023 Have There Been Any Changes To Your Family Or Social Situation? No [email or web address] Information not available 06/20/2023 What Is The Fluoride Status Of Your Home? Unknown [email or web address] Information not available 06/20/2023 Do You Use Insect Repellent Routinely? No [email or web address] Information not available 06/20/2023 Where Do You Live? SingleLevelHouse [email or web address] Information not available 06/20/2023 Do You Have A Medical Power Of Play Reader? Yes Patrick Betancourt And Shira [email or web address] Information not available 03/28/2024 What Was The Date Of Your Most Recent Tobacco Screening? 12/03/2024 [email or web address] Information not available 12/03/2024 How Many Children Do You Have? 3 [email or web address] Information not available 03/28/2024 Do You Have Any Pets? Yes Dog [email or web address] Information not available 03/28/2024 What Is Your Relationship Status? [email or web address] Information not available 03/28/2024 Do You Use Your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
[2025-01-30] MEDS: traMADol HCL (*CRX) 50 MG TABLET PO (18:46)
--- OUTSIDE RECORDS SUMMARY | 2025-01-30 19:13 | XMS_ITS | Referral Summary ---
Author Organization [facility] [email or web address] Address [address] [place] [address] Care Team Providers Care Bass Fisher Name Role Phone Holly Velarde MD Primary Care Provider [phone] Source Comments [facility] [email or web address],non-owned Affiliates and Associated Physician Practices is amultiple site organization consisting of ambulatory clinics and hospital sitesin [place], [place], [place] and [place]. This disclosure is being madepursuant to the Care Everywhere program and may not contain all information available regarding this patient. Last updated 18.[email or web address] Allergies No known active allergies Medications * [...] by mouth once daily. Indications: SUPPLEMENT Active Vutnmdz-Ywrbtuvcu-B itamin D (CALCIUM 1200+D3 PO)Indications:SUPP LEMENT Take [...] of Treatment Not on file Care Teams Bass Fisher Relationship Specialty Start Date End Date Holly Velarde MD [facility] [place] [address] PCP - General Family Medicine 03/07/23
--- OUTSIDE RECORDS SUMMARY | 2025-01-30 19:13 | XMS_ITS | Patient Health Summary ---
Author Organization [facility] Address [address] [place] [address] Care Team Providers Care Home Health Lvn Name Role Phone Holly Velarde MD Primary Care Provider [phone] Note from [facility],non-owned Affiliates and Associated Physician Practices is amultiple site organization consisting of ambulatory clinics and hospital sitesin [place], [place], [place] and [place]. This disclosure is being madepursuant to the Care Everywhere program and may not contain all information available regarding this patient. Last updated 18.[facility] [employer] Allergies No known active allergies Medications * [...] by mouth once daily. Indications: SUPPLEMENT * Psyield-Ghubranjc-Sagsweu D (CALCIUM 1200+D3 PO) Take 1 tablet [...] Body Mass Index - - Care Teams Home Health Lvn Relationship Specialty Start Date End Date Holly Velarde MD [facility] [place] [address] PCP - General Family Medicine 03/07/23
--- OUTSIDE RECORDS SUMMARY | 2025-01-30 19:13 | XMS_ITS | Continuity of Care Document ---
Author Organization [facility] Address [address] [place] [address] Phone Care Team Providers Care Gas Main Fitter Helper Name Role Phone Pedro OD, Justin Unavailable Unavailable Procedures Procedure Date Eye Exam & Treatment Refraction No Charge Contact Lens Check No Charge Contact Lens Check No Charge Contact Lens Check Contact Lens Fitting Advance Directives Directive Yes / No Effective Date File Name No Information Encounters Encounter Description Practice Location Reason(s) For Visit Diagnoses Date Provider Providers Copied on Encounter [facility], [address] [place] [address] [address], [place], [place], [id number], tel:[phone] [facility] No Information 8-200 9 Pedro OD Justin. [address] [facility] , [address], [place], [address], . tel:[phone] [facility], [address] [place] [address] [address], [place], [place], [id number], [place] tel:[phone] [facility] No Information 1-200 7 Pedro OD Justin. [address] [facility] , [address], [place], [address], [place]. tel:[phone] [facility], [address] [place] [address] [address], [place], [place], [id number], tel:[phone] [facility] No Information 0-200 7 Pedro OD Justin. [address] [facility] , [address], [place], [address], [place]. tel:[phone] [facility], [address], [place], [place], [id number], tel:[phone] [facility] No Information Apr-1 3-200 7 Pedro OD Justin. [address] [facility] , [address], [place], [address], [place]. tel:[phone] [facility], [address], [place], [place], [id number], [place] tel:[phone] [facility] No Information Mar-2 8-200 7 Pedro OD Justin. [facility] [facility] , [address], [place], [address], [place]. tel:[phone] Family History Family Member Type Diagnosis Age At Onset No Information Payers Payer name Insurance type Covered democrat ID Authoreribertoa tiedmund(s) Medicaid [facility] [id number] Social History Type Description Quantity Date Captured [...]
--- OUTSIDE RECORDS SUMMARY | 2025-01-30 19:13 | XMS_ITS | Clinical Summary ---
Author Organization [facility] Address [address] [place] [address] Care Team Providers Care Supervisor Dried Yeast Name Role Phone Marvin Alcaraz MD Primary Care Provide r Fiorella Worley MD Unavailable [phone] Allergies No known active allergies Medications calcium [...] (02/04/2023): Added automatically from request for surgery [id number] Carpal tunnel syndrome, left 10/13/2021 Carpal tunnel syndrome, right 10/13/2021 Overview (10/13/2021): Added automatically from request for surgery [id number] Finger stiffness, left 10/13/2021 Overview (10/13/2021): Added automatically from request for surgery [id number] Sleep apnea 09/18/2021 03/16/2023 Family history of stroke 06/23/2021 Depressive disorder 02/20/2021 Gallstone 02/20/2021 Low back pain 02/20/2021 Osteoarthritis of knee 02/20/2021 Dupuytren's contracture of both hands 02/06/2021 Overview (02/06/2021): Added automatically from request for surgery [id number] Dupuytren's contracture of right hand 11/18/2020 Overview (11/18/2020): Added automatically from request for surgery [id number] Encounter for gynecological examination without abnormal finding [...] (11/30/2019): Added automatically from request for surgery [id number] Morbid obesity 11/30/2019 Overview (11/30/2019): Added automatically from request for surgery [id number] Intestinal malabsorption 11/30/2019 Overview (11/30/2019): Added automatically from request for surgery [id number] BMI 38.0-38.9,adult 07/17/2018 Abnormal cervical Papanicolaou smear [...] (02/04/2023): Added automatically from request for surgery [id number] Fracture deformity 02/04/2023 Upper respiratory infection 01/21/2023 [...] Department Care Team Description 12/26/2024 8:10 AM JAR FILLER Office Visit [facility] Orthopaedic Surgery [address] [place] [address] Advanced Medicine [address]th [place] [address] [place] [address] Susan Malloy MD 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, unspecified fracture morphology, subsequent encounter (Primary Dx) 12/26/2024 7:29 AM JAR FILLER - 12/26/2024 11:59 PM JAR FILLER Hospital Encounter [facility] [address] [place] [phone] Susan Malloy MD 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, unspecified fracture morphology, subsequent encounter Discharge Disposition: Discharge to home or self care 11/20/[address] [address] Skyler Son MD 11/07/2024 8:00 AM JAR FILLER Office Visit [facility] Orthopaedic Surgery [address] [place] [address] Advanced Medicine 6th [place] [address] [place] [address] Susan Malloy MD 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, unspecified fracture morphology, subsequent encounter (Primary Dx) 11/07/2024 7:30 AM JAR FILLER - 11/07/2024 11:59 PM JAR FILLER Hospital Encounter [facility] ([facility]) [address] [place] [address] Susan Malloy MD Closed fracture of distal [...] 09/16/2020 Surgical History Surgery Date Site/Laterality Comments [place] GASTRIC RSTCV W/BYP W/RANJAN RT LIMB 150 [...] on file Legal Sex Female 10:02 AM JAR FILLER Gender Identity Not on file Sexual Orientation [...] Comments Blood Pressure 112/54 09/25/2024 3:50 PM JAR FILLER Pulse 67 09/25/2024 3:50 PM JAR FILLER Temperature 36.2 C (97.2 F) 09/25/2024 12:55 PM JAR FILLER Respiratory Rate 9 09/25/2024 3:50 PM JAR FILLER Oxygen Saturation 93% 09/25/2024 3:30 PM JAR FILLER Inhaled Oxygen Concentration - - Weight 145.2 kg (320 lb) 09/25/2024 8:10 AM JAR FILLER Height 167.6 cm (5' 6 ) 01/22/2024 7:51 PM JAR FILLER Body Mass Index 51.65 01/22/2024 7:51 PM JAR FILLER Plan of Treatment Health Maintenance Due Date [...] history exists Medical Devices Implanted Type Area Child Attendant Device Identifier Shelf Expiration Date Model / Serial / Lot Nail [id number] Implanted:Qty: 1 on 10/25/2023 by Fiorella Worley MD at [facility] Nail Right: Ankle [employer] 07/26/2024 FRANCIS-1010-1 0210 / / [id number] Description:inactive Allosource Freeze Dried Chips 4-10mm Graft 30ml Bone Cancellous 61203660 - [id number] - [id number] Implanted:Qty: 1 on 06/21/2023 by Fiorella Worley MD at [facility] Other - see comments Right: Leg [employer]osource 01/28/2028 [id number] / [id number] / [id number] Description:Cancellous Chips Allosource Freeze Dried Chips 4-10mm Graft 30ml Bone Cancellous 40280079 - [id number] - [id number] Implanted:Qty: 1 on 06/21/2023 by Fiorella Worley MD at [facility] Other - see comments Right: Leg [employer]osource 10/18/2027 [id number] / [id number] / [id number] Description:Cancellous Chips Synthes Lcp Combi 747s97y2.4mm 10 Hole Limit Contact Taper End Plate Bone 223.601 - [id number] Implanted:Qty: 1 on 06/21/2023 by Fiorella Worley MD at [facility] Plate Right: Leg Synthes I 223.601 / / Synthes 3.5mm 6mm 70mm 2.5mm Self Tap Small Hexagonal Socket Low Profile 204.870 - [id number] Implanted:Qty: 2 on 06/21/2023 by Fiorella Worley MD at [facility] Screw Right: Leg Synthes I 204.870 / / Synthes 3.5mm 6mm 42mm 2.5mm Self Tap Small Hexagonal Socket Low Profile 204.842 - [id number] Implanted:Qty: 1 on 06/21/2023 by Fiorella Worley MD at [facility] Screw Right: Leg Synthes I 204.842 / / Synthes 3.5mm 2.9mm 50mm Self Tap Lock Stardrive Conical Head T15 Full 212.121 - [id number] Implanted:Qty: 1 on 06/21/2023 by Fiorella Worley MD at [facility] Screw Right: Leg Synthes I 212.121 / / Synthes 3.5mm 2.9mm 85mm Self Tap Lock Stardrive Conical Head T15 Full 212.129 - [id number] Implanted:Qty: 1 on 06/21/2023 by Fiorella Worley MD at [facility] Screw Right: Leg Synthes I 212.129 / / Hardware Bilater al: Knee Synthes Schanz 5mm 170mm 50mm Blunt Trocar Point Xlong Screw External 294.55 - [id number] Implanted:Qty: 4 on 02/04/2023 by Torey Escalera MD at [facility] Leg Synthes I 294.55 / / Synthes Steinmann 5mm 5.5mm 275mm Central Thread Pin Fixation Large 293.890 - [id number] Implanted:Qty: 2 on 02/04/2023 by Torey Escalera MD at [facility] Bilater al: Leg Synthes I 293.890 / / Synthes 3.5mm 6mm 34mm 2.5mm Self Tap Small Hexagonal Socket Low Profile 204.834 - [id number] Implanted:Qty: 1 on 02/22/2023 at [facility] Left: Tibia Synthes I 204.834 / / Synthes Lcp Combi 112mm 6 Hole Fibula Left Distal Lateral Contour Plate 02.112.143 - [id number] Implanted:Qty: 1 on 02/22/2023 at [facility] Left: Tibia Synthes I 02.112.143 / / Synthes Lcp Combi 158mm 11 Hole Low Profile Limit Contact Taper Tip 241.447 - [id number] Implanted:Qty: 1 on 02/22/2023 at [facility] Left: Tibia Synthes I 241.447 / / Synthes 3.5mm 2.9mm 50mm Self Tap Lock Stardrive Conical Head T15 Full 212.121 - [id number] Implanted:Qty: 1 on 02/22/2023 at [facility] Left: Tibia Synthes I 212.121 / / Synthes 3.5mm 6mm 36mm 2.5mm Self Tap Small Hexagonal Socket Low Profile 204.836 - [id number] Implanted:Qty: 2 on 02/22/2023 by Fiorella Worley MD at [facility] Right: Tibia Synthes I 204.836 / / Synthes 3.5mm 6mm 24mm 2.5mm Self Tap Small Hexagonal Socket Low Profile 204.824 - [id number] Implanted:Qty: 1 on 02/22/2023 by Fiorella Worley MD at [facility] Right: Tibia Synthes I 204.824 / / Synthes 3.5mm 2.9mm 45mm Self Tap Lock Stardrive Conical Head T15 Full 212.119 - [id number] Implanted:Qty: 2 on 02/22/2023 by Fiorella Worley MD at [facility] Right: Tibia Synthes I 212.119 / / Synthes 3.5mm 6mm 26mm 2.5mm Self Tap Small Hexagonal Socket Low Profile 204.826 - [id number] Implanted:Qty: 1 on 02/22/2023 by Fiorella Worley MD at [facility] Right: Tibia Synthes I 204.826 / / Synthes 3.5mm 2.9mm 40mm Self Tap Lock Stardrive Conical Head T15 Full 212.117 - [id number] Implanted:Qty: 2 on 02/22/2023 by Fiorella Worley MD at [facility] Left: Tibia Synthes I 212.117 / / Synthes 3.5mm 6mm 22mm 2.5mm Self Tap Small Hexagonal Socket Low Profile 204.822 - [id number] Implanted:Qty: 1 on 02/22/2023 by Fiorella Worley MD at [facility] Right: Tibia Synthes I 204.822 / / Synthes 2.7mm 2.1mm 14mm Self Tap Lock Stardrive Thread Head Profile T8 202.214 - [id number] Implanted:Qty: 2 on 02/22/2023 by Fiorella Worley MD at [facility] Right: Tibia Synthes I 202.214 / / Synthes 3.5mm 6mm 30mm 2.5mm Self Tap Small Hexagonal Socket Low Profile 204.830 - [id number] Implanted:Qty: 1 on 02/22/2023 by Fiorella Worley MD at [facility] Right: Tibia Synthes I 204.830 / / Synthes 3.5mm 2.9mm 50mm Self Tap Lock Stardrive Conical Head T15 Full 212.121 - [id number] Implanted:Qty: 1 on 02/22/2023 by Fiorella Worley MD at [facility] Right: Tibia Synthes I 212.121 / / Synthes 3.5mm 2.9mm 26mm Self Tap Lock Stardrive Conical Head T15 Full 212.109 - [id number] Implanted:Qty: 1 on 02/22/2023 by Fiorella Worley MD at [facility] Right: Tibia Synthes I 212.109 / / Synthes 2.7mm 2.1mm 16mm Self Tap Lock Stardrive Thread Head Profile T8 202.216 - [id number] Implanted:Qty: 2 on 02/22/2023 by Fiorella Worley MD at [facility] Right: Tibia Synthes I 202.216 / / Synthes 3.5mm 6mm 14mm 2.5mm Self Tap Small Hexagonal Socket Low Profile 204.814 - [id number] Implanted:Qty: 1 on 02/22/2023 by Fiorella Worley MD at [facility] Right: Tibia Synthes I 204.814 / / Synthes 3.5mm 2.9mm 40mm Self Tap Lock Stardrive Conical Head T15 Full 212.117 - [id number] Implanted:Qty: 1 on 02/22/2023 by Fiorella Worley MD at [facility] Right: Tibia Synthes I 212.117 / / Synthes 3.5mm 6mm 40mm 2.5mm Self Tap Small Hexagonal Socket Low Profile 204.840 - [id number] Implanted:Qty: 1 on 02/22/2023 by Fiorella Worley MD at [facility] Right: Tibia Synthes I 204.840 / / Synthes 2.7mm 2.1mm 12mm Self Tap Lock Stardrive Thread Head Profile T8 202.212 - [id number] Implanted:Qty: 1 on 02/22/2023 by Fiorella Worley MD at [facility] Right: Tibia Synthes I 202.212 / / Synthes 2.7mm 2.1mm 12mm Self Tap Lock Stardrive Thread Head Profile T8 202.212 - [id number] Implanted:Qty: 1 on 02/22/2023 by Fiorella Worley MD at [facility] Left: Tibia Synthes I 202.212 / / Synthes Lcp Combi 210mm 15 Hole Low Profile Limit Contact Taper Tip 241.450 - [id number] Implanted:Qty: 1 on 02/22/2023 by Fiorella Worley MD at [facility] Left: Tibia Synthes I 241.450 / / [facility] [employer] Simplex P Full Dose Radiopaque Preblend Cement Bone Tobramycin 6197-9-001 - [id number] Implanted:Qty: 1 on 02/22/2023 by Fiorella Worley MD at [facility] Right: Tibia [employer] [id number] 07/21/2024 6197-9-001 / / [id number] Synthes 3.5mm 6mm 30mm 2.5mm Self Tap Small Hexagonal Socket Low Profile 204.830 - [id number] Implanted:Qty: 1 on 02/22/2023 by Fiorella Worley MD at [facility] Left: Tibia Synthes I 204.830 / / Synthes 2.7mm 2.1mm 16mm Self Tap Lock Stardrive Thread Head Profile T8 202.216 - [id number] Implanted:Qty: 1 on 02/22/2023 by Fiorella Worley MD at [facility] Left: Tibia Synthes I 202.216 / / Synthes 2.7mm 2.1mm 14mm Self Tap Lock Stardrive Thread Head Profile T8 202.214 - [id number] Implanted:Qty: 2 on 02/22/2023 by Fiorella Worley MD at [facility] Left: Tibia Synthes I 202.214 / / Synthes Lcp Combi 151mm 9 Hole Fibula Right Distal Lateral Contour Plate 02.112.148 - [id number] Implanted:Qty: 1 on 02/22/2023 by Fiorella Worley MD at [facility] Right: Tibia Synthes I 02.112.148 / / Synthes 3.5mm 6mm 12mm 2.5mm Self Tap Small Hexagonal Socket Low Profile 204.812 - [id number] Implanted:Qty: 1 on 02/22/2023 by Fiorella Worley MD at [facility] Right: Tibia Synthes I 204.812 / / Synthes 3.5mm 6mm 18mm 2.5mm Self Tap Small Hexagonal Socket Low Profile 204.818 - [id number] Implanted:Qty: 1 on 02/22/2023 by Fiorella Worley MD at [facility] Right: Tibia Synthes I 204.818 / / Synthes 3.5mm 2.9mm 45mm Self Tap Lock Stardrive Conical Head T15 Full 212.119 - [id number] Implanted:Qty: 3 on 02/22/2023 by Fiorella Worley MD at [facility] Left: Tibia Synthes I 212.119 / / Synthes 3.5mm 2.9mm 40mm Self Tap Lock Stardrive Conical Head T15 Full 212.117 - [id number] Implanted:Qty: 2 on 02/22/2023 at [facility] Left: Tibia Synthes I 212.117 / / Synthes 3.5mm 6mm 28mm 2.5mm Self Tap Small Hexagonal Socket Low Profile 204.828 - [id number] Implanted:Qty: 3 on 02/22/2023 by Fiorella Worley MD at [facility] Left: Tibia Synthes I 204.828 / / Synthes 3.5mm 6mm 14mm 2.5mm Self Tap Small Hexagonal Socket Low Profile 204.814 - [id number] Implanted:Qty: 3 on 02/22/2023 by Fiorella Worley MD at [facility] Left: Tibia Synthes I 204.814 / / Synthes 3.5mm 6mm 40mm 2.5mm Self Tap Small Hexagonal Socket Low Profile 204.840 - [id number] Implanted:Qty: 1 on 02/22/2023 at [facility] Left: Tibia Synthes I 204.840 / / Synthes 3.5mm 6mm 18mm 2.5mm Self Tap Small Hexagonal Socket Low Profile 204.818 - [id number] Implanted:Qty: 1 on 02/23/2023 at [facility] Left: Tibia Synthes I 204.818 / / [employer]O rtho Screw Bone Cortical St Non Locking Evos 3.5x30mm Ss 99315378 - [id number] Implanted:Qty: 2 on 10/25/2023 by Fiorella Worley MD at [facility] Right: Ankle [employer]/ Ortho [id number] / / [employer]o Evos 3.5mm 40mm Self Tap Cortex Screw Bone Sterile 04239057 - [id number] Implanted:Qty: 1 on 10/25/2023 by Fiorella Worley MD at [facility] Right: Ankle [employer]/ Ortho [id number] / / [employer]O rtho 2.7mm 4.3mm 42mm Lock Self Retain Flat Head Long Bone Small Bone 54626361 - [id number] Implanted:Qty: 1 on 10/25/2023 by Fiorella Worley MD at [facility] Right: Ankle [employer]/ Ortho [id number] / / [employer]O [employer]o Evos 3.5mm 44mm Self Tap Lock Screw Bone Sterile 76462393 - [id number] Implanted:Qty: 1 on 10/25/2023 by Fiorella Worley MD at [facility] Right: Ankle [employer]/ Ortho [id number] / / 5.0 Ft Screw Implanted:Qty: 2 on 10/25/2023 by Fiorella Worley MD at [facility] Right: Ankle [employer] FRANCIS-1010-1 424NS / / Description:inactive 5.0ft Screw Implanted:Qty: 2 on 10/25/2023 by Fiorella Worley MD at [facility] Right: Ankle [employer] FRANCIS-1010-1 475NS / / Description:inactive [employer] Evos 195x11.4x3.4mm 18.8x2.7mm 15 Hole Low Profile Variable Angle 74624137 - [id number] Implanted:Qty: 1 on 10/25/2023 by Fiorella Worley MD at [facility] Right: Ankle [employer]/ Ortho [id number] / / [employer]O [employer] Evos Mini 2.7mm 4.5mm 12mm Self Tap Cortex T8 Screw Bone 98647037 - [id number] Implanted:Qty: 1 on 10/25/2023 by Fiorella Worley MD at [facility] Right: Ankle [employer]/ Ortho [id number] / / [employer]O [employer]o Evos 3.5mm 50mm Self Tap Cortex Screw Bone Sterile 78266035 - [id number] Implanted:Qty: 1 on 10/25/2023 by Fiorella Worley MD at [facility] Right: Ankle [employer]/ Ortho [id number] / / 5.0 Ft Screw Implanted:Qty: 1 on 09/25/2024 by Fiorella Worley MD at [facility] FRANCIS-1010-1 444NS / / Description:Inactive in the system. Misc code used. 5.0 Ft Screw 2 Implanted:Qty: 2 on 09/25/2024 by Fiorella Worley MD at [facility] FRANCIS-1010-1 424NS / / Description:Inactive in syst em. Misc code used 3 Implanted:Qty: 1 on 09/25/2024 by Fiorella Worley MD at [facility] FRANCIS-1010-2 675NS / / Description:Inactive in the system. Misc code used 5.0 Pt Screw 4 Implanted:Qty: 1 on 09/25/2024 by Fiorella Worley MD at [facility] FRANCIS-1010-2 670NS / / Description:Inactive in the system. Misc code used Nail, 010mm X 210mm Implanted:Qty: 1 on 09/25/2024 by Fiorella Worley MD at [facility] FRANCIS-1010-1 0210 / / Description:Inactive in the system misc code used Explanted Type Area Child Attendant Device Identifier Shelf Expiration Date Model / Serial / Lot Synthes 3.5mm 6mm 32mm 2.5mm Self Tap Small Hexagonal Socket Low Profile 204.832 - [id number] Explanted:Qty: 1 on 02/22/2023 at [facility] Left: Tibia Synthes I 204.832 / / Synthes 3.5mm 6mm 150mm 2.5mm Self Tap Low Profile Small Hexagonal Socket 204.750 - [id number] Explanted:Qty: 1 on 10/25/2023 at [facility] Right: Ankle Synthes I 204.750 / / [employer]/ Ortho Evos 3.5mm 10mm Self Tap Cortex Screw Bone Sterile 79726521 - [id number] Explanted:Qty: 1 on 10/25/2023 at [facility] Right: Ankle [employer]/Or tho [id number] / / [employer]/ Ortho Evos 3.5mm 16mm Self Tap Cortex Screw Bone Sterile 32304509 - [id number] Explanted:Qty: 1 on 10/25/2023 at [facility] Right: Ankle [employer]/Or tho [id number] / / [employer]/ Ortho 2.7mm 4.3mm 16mm Self Tap Lock T8 2mm Screw Bone Evos 84301052 - [id number] Explanted:Qty: 2 on 10/25/2023 by Fiorella Worley MD at [facility] Right: Ankle [employer]/Or tho [id number] / / [employer]/ Ortho 2.7mm 4.3mm 44mm Lock Self Retain Flat Head Long Bone Small Bone 13341799 - [id number] Explanted:Qty: 1 on 10/25/2023 by Fiorella Worley MD at [facility] Right: Ankle [employer]/Or tho [id number] / / Procedures Procedure Name Priority Date/Time Associated Diagnosis Comments XR ANKLE LEFT 3 OR MORE VIEWS Schedule Routine, Read Routine (OP Routine) 12/26/2024 7:36 AM JAR FILLER 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, unspecified fracture morphology, subsequent encounter XR ANKLE LEFT 3 OR MORE VIEWS Schedule Routine, Read Routine (OP Routine) 11/07/2024 7:41 AM JAR FILLER 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, unspecified fracture morphology, subsequent encounter PAP AND HIGH RISK HPV, REFLEX TO GENOTYPING Routine 02/13/2024 9:40 AM CDT Health care maintenance SCREENING MAMMOGRAM BILATERAL W RONALDO Schedule Routine, Read Routine (OP Routine) 12/31/2023 2:12 PM JAR FILLER Screening mammogram, encounter for HEPATITIS C ANTIBODY STAT 02/22/2023 1:10 PM CDT COLONOSCOPY 09/15/2018 3:55 PM CDT from Last 3 Months or Most Recently Relevant to Health Maintenance Results * XR Ankle Left 3 or More Views (12/26/2024 7:36 AM JAR FILLER) Anatomical Region Laterality Modality Lower Extremities, Ankle Left Compute d Radiography 12/26/2024 7:44 AM JAR FILLER Impressions 12/26/2024 7:44 AM JAR FILLER 1. Healing distal tibia metaphysis fracture fixated with tibiotalocalcaneal nail arthrodesis. Electronically signed by: Max Garcias D.O. Narrative 12/26/2024 7:44 AM JAR FILLER EXAMINATION: XR ANKLE LEFT 3 OR MORE [...] 3 or More Views (11/07/2024 7:41 AM JAR FILLER) Anatomical Region Laterality Modality Lower Extremities, Ankle Left Compute d Radiography 11/07/2024 7:47 AM JAR FILLER Impressions 11/07/2024 7:47 AM JAR FILLER 1. Interval left tibiotalar and subtalar instrumented arthrodesis for management of comminuted nonunited distal left tibial fracture. 2. Unchanged nonunited distal left fibular fracture with interval removal of fixation implant. Electronically signed by: Krason Merino M.D. Narrative 11/07/2024 7:47 AM JAR FILLER EXAMINATION: XR ANKLE LEFT 3 OR MORE [...] CDT 02/13/2024 11:27 AM CDT Narrative PATHOLOGY [facility] - 02/20/2024 8:42 AM CDT EPIC results best viewed via link to PDF [facility] [place] [address] Note to Patients: This report may contain [...] Gender: F : 1965 (Age: 58) Address: [address] [place] [address] Hospital #: [id number] Service: UNKNOWN Location: Patient Type: [facility] SPECIMEN Taken: 02/13/2024 Received: 02/13/2024 Accessioned: [...] this test have been verified by the [facility] Molecular Infectious Disease laboratory. Correlate with reported [...] and histologic results be correlated for laboratory corporate quality engineer & improvement standards. FOR ALL HIGH-GRADE CASES [...] determined by the Surgical Pathology Department at [facility] as part of an ongoing corporate quality engineer program and in compliance with federally mandated [...] determined by the Surgical Pathology Department of [facility]. It has not been cleared or approved by the U. S. Food and Drug Administration. Marsha Grewal MD LAB CYTOLOGY ORDER DEEPAK Final Result PATHOLOGY [facility] 3rd Floor [place], [place] [phone] * Screening Mammogram Bilateral W Ronaldo (12/31/2023 2:12 PM JAR FILLER) Anatomical Region Laterality Modality Breast Bilateral Mammography Narrative 01/03/2024 3:05 PM JAR FILLER Mammogram Technique: Bilateral Digital Breast Tomosynthesis, Bilateral C-view 2D Screening mammogram. Views obtained: bilateral craniocaudal and bilateral mediolateral oblique. Computer Aided Detection was performed. Mammogram Findings: The present examination has been compared to prior imaging studies performed at [facility] on 07/08/2020, 07/09/2021 and 08/20/2022. There [...] compared to prior imaging studies performed at [facility] on 07/08/2020, 07/09/2021 and 08/20/2022. There [...] CDT) Hep C Ab Nonreactive Nonreactive [facility] Comment:Antibodies to HCV no t detected. Does NOT exclude the possibility of recent exposure to HCV. Current interpretive data was last revised on 22 Blood 02/22/2023 1:10 PM CDT 02/22/2023 1:45 PM CDT us Notinfile Unknown LAB MICROBIOLOGY - GENERAL ORD ERABLES Final Result Performing Organization Address City/State/[facility] Co de Phone Number [facility] Department [place] [address] * COLONOSCOPY (09/15/2018 3:55 PM CDT) Anatomical Region Laterality Modality Other Narrative Procedure Note Carlos Alberto Todd MD - 09/15/2018 3:55 PM CDT GI ENDOSCOPY [facility] Patient Name: Eileen Fermin Procedure Date: 09/15/2018 3:55 PM Date of : 1965 Admit Type: Outpatient Age: 53 Gender: Female Attending MD: Carlos Alberto Todd MD Room: [facility] ENDOSCOPY ROOM 3 Note Status: Finalized Procedure: [...] The scope was passed under direct vision.The [id number] 2202-601 endoscope was introduced throughthe anus and [...] On: 09/15/2018 3:55 PM Recognized by the [employer] for promoting quality in endoscopy Carlos Alberto Todd MD ENDOSCOPY PROCEDURES Final Re sult from Last 3 Months or Most Recently Relevant to Health Maintenance Insurance [employer] [facility] MEDIC[facility] Address: [address] [address] [place] [address] MEDICARE [employer] MEDICARE SOLUTIONS [employer] MED[employer]IONS MED[employer]ARE SOL[employer]IONS [employer] Advance Directives For more information, please contact: [phone] Documents on File Type Date Recorded Patient Tailor Helper Expl anation ADVANCE DIRECTIVE 02/17/2023 1:18 PM [employer] * Full Code (Latest Code Status on File) Date Activated Date Inactivated Comments 06/21/2023 5:15 PM 2023 6:52 PM * Full Code Date Activated Date Inactivated Comments 02/05/2023 1:05 AM 02/15/2023 8:49 PM * Full Code Date Activated Date Inactivated Comments 12/04/2019 10:24 AM 12/04/2019 4:55 PM * Full Code Date Activated Date Inactivated Comments 09/15/2018 2:40 PM 09/15/2018 8:51 PM Care Teams Supervisor Dried Yeast Relationship Specialty Start Date End Date Marvin Alcaraz MD [address] [facility] [address] [place] [address] PCP - General Internal Medicine 03/30/24 Fiorella Worley MD [address] [address] Referring Physician Orthopedic Surgery 09/14/24
--- OUTSIDE RECORDS SUMMARY | 2025-01-30 19:13 | XMS_ITS | Clinical Summary ---
Author Organization [facility] Address [address] [place] [address] Care Team Providers Care Manager Health Name Role Phone Holly Velarde MD Primary Care Provider [phone] Source Comments [employer] [facility],non-owned Affiliates and Associated Physician Practices is amultiple site organization consisting of ambulatory clinics and hospital sitesin [place], [place], [place] and [place]. This disclosure is being madepursuant to the Care Everywhere program and may not contain all information available regarding this patient. Last updated 18.[employer] Allergies No known active allergies Medications * [...] by mouth once daily. Indications: SUPPLEMENT Active Ujxscji-Zvohdamso-T itamin D (CALCIUM 1200+D3 PO)Indications:SUPP LEMENT Take [...] age to complete this topic Care Teams Manager Health Relationship Specialty Start Date End Date Holly Velarde MD [address] [place] [address] [address] [place] [address] PCP - General Family Medicine 03/07/23
--- OUTSIDE RECORDS SUMMARY | 2025-01-30 19:13 | XMS_ITS | Referral Summary ---
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, unspecified fracture morphology, subsequent encounter Discharge Disposition: Discharge to home or self care 12/26/2024 8:10 AM REGISTERED PHARMACIST Office Visit [facility] [address] [place] [address] [facility] 6th [place] [address] [place] [address] Susan Malloy MD 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, unspecified fracture morphology, subsequent encounter (Primary Dx) 11/20/2024 Telephone [facility] [address] [place] [address] Skyler Son MD 11/07/2024 7:30 AM REGISTERED PHARMACIST - 11/07/2024 11:59 PM REGISTERED PHARMACIST Hospital Encounter [facility] [address] [place] [address] Susan Malloy MD 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, unspecified fracture morphology, subsequent encounter Discharge Disposition: Discharge to home or self care 11/07/2024 8:00 AM REGISTERED PHARMACIST Office Visit [facility] [address] [facility] 6th [place] [address] [place] [address] Susan Malloy MD Closed fracture of distal [...] (02/04/2023): Added automatically from request for surgery [id number] Carpal tunnel syndrome, left 10/13/2021 Carpal tunnel syndrome, right 10/13/2021 Overview (10/13/2021): Added automatically from request for surgery [id number] Finger stiffness, left 10/13/2021 Overview (10/13/2021): Added automatically from request for surgery [id number] Sleep apnea 09/18/2021 03/16/2023 Family history of stroke 06/23/2021 Depressive disorder 02/20/2021 Gallstone 02/20/2021 Low back pain 02/20/2021 Osteoarthritis of knee 02/20/2021 Dupuytren's contracture of both hands 02/06/2021 Overview (02/06/2021): Added automatically from request for surgery [id number] Dupuytren's contracture of right hand 11/18/2020 Overview (11/18/2020): Added automatically from request for surgery [id number] Encounter for gynecological examination without abnormal finding [...] (11/30/2019): Added automatically from request for surgery [id number] Morbid obesity 11/30/2019 Overview (11/30/2019): Added automatically from request for surgery [id number] Intestinal malabsorption 11/30/2019 Overview (11/30/2019): Added automatically from request for surgery [id number] BMI 38.0-38.9,adult 07/17/2018 Abnormal cervical Papanicolaou smear [...] (02/04/2023): Added automatically from request for surgery [id number] Fracture deformity 02/04/2023 Upper respiratory infection 01/21/2023 [...] on file Legal Sex Female 10:02 AM REGISTERED PHARMACIST Gender Identity Not on file Sexual Orientation Straight 07/06/2021 8: 53 AM CDT Last Filed Vital Signs Vital Sign Reading Time Taken Comments Blood Pressure 112/54 09/25/2024 3:50 PM REGISTERED PHARMACIST Pulse 67 09/25/2024 3:50 PM REGISTERED PHARMACIST Temperature 36.2 C (97.2 F) 09/25/2024 12:55 PM REGISTERED PHARMACIST Respiratory Rate 9 09/25/2024 3:50 PM REGISTERED PHARMACIST Oxygen Saturation 93% 09/25/2024 3:30 PM REGISTERED PHARMACIST Inhaled Oxygen Concentration - - Weight 145.2 kg (320 lb) 09/25/2024 8:10 AM REGISTERED PHARMACIST Height 167.6 cm (5' 6 ) 01/22/2024 7:51 PM REGISTERED PHARMACIST Body Mass Index 51.65 01/22/2024 7:51 PM REGISTERED PHARMACIST Plan of Treatment Not on file Medical Devices Implanted Type Area Fire Alarm Installer Device Identifier Shelf Expiration Date Model / Serial / Lot Nail [id number] Implanted:Qty: 1 on 10/25/2023 by Fiorella Worley MD at [facility] Nail Right: Ankle [employer] 07/26/2024 FRANCIS-1010-1 0210 / / [id number] Description:inactive Allosource Freeze Dried Chips 4-10mm Graft 30ml Bone Cancellous [id number] - [id number] - [id number] Implanted:Qty: 1 on 06/21/2023 by Fiorella Worley MD at [facility] Other - see comments Right: Leg [employer] 01/28/2028 [id number] / [id number] / [id number] Description:Cancellous Chips [employer]ource Freeze Dried Chips 4-10mm Graft 30ml Bone Cancellous 55840127 - [id number] - [id number] Implanted:Qty: 1 on 06/21/2023 by Fiorella Worley MD at [facility] Other - see comments Right: Leg [employer] 10/18/2027 [id number] / [id number] / [id number] Description:Cancellous Chips Synthes Lcp Combi 254l01q4.4mm 10 Hole Limit Contact Taper End Plate Bone 223.601 - [id number] Implanted:Qty: 1 on 06/21/2023 by Fiorella Worley MD at [facility] Plate Right: Leg Synthes I 223.601 / / Synthes 3.5mm 6mm 70mm 2.5mm Self Tap Small Hexagonal Socket Low Profile 204.870 - [id number] Implanted:Qty: 2 on 06/21/2023 by Fiorella Worley MD at [facility] Screw Right: Leg Synthes I 204.870 / / Synthes 3.5mm 6mm 42mm 2.5mm Self Tap Small Hexagonal Socket Low Profile 204.842 - [id number] Implanted:Qty: 1 on 06/21/2023 by Fiorella Worley MD at [facility] Screw Right: Leg Synthes I 204.842 / / Synthes 3.5mm 2.9mm 50mm Self Tap Lock Stardrive Conical Head T15 Full 212.121 - [id number] Implanted:Qty: 1 on 06/21/2023 by Fiorella Worley MD at [facility] Screw Right: Leg Synthes I 212.121 / / Synthes 3.5mm 2.9mm 85mm Self Tap Lock Stardrive Conical Head T15 Full 212.129 - [id number] Implanted:Qty: 1 on 06/21/2023 by Fiorella Worley MD at [facility] Screw Right: Leg Synthes I 212.129 / / Hardware Bilater al: Knee Synthes Schanz 5mm 170mm 50mm Blunt Trocar Point Xlong Screw External 294.55 - [id number] Implanted:Qty: 4 on 02/04/2023 by Torey Escalera MD at [facility] Leg Synthes I 294.55 / / Synthes Steinmann 5mm 5.5mm 275mm Central Thread Pin Fixation Large 293.890 - [id number] Implanted:Qty: 2 on 02/04/2023 by Torey Escalera MD at [facility] Bilater al: Leg Synthes I 293.890 / / Synthes 3.5mm 6mm 34mm 2.5mm Self Tap Small Hexagonal Socket Low Profile 204.834 - [id number] Implanted:Qty: 1 on 02/22/2023 at [facility] Left: Tibia Synthes I 204.834 / / Synthes Lcp Combi 112mm 6 Hole Fibula Left Distal Lateral Contour Plate 02.112.143 - [id number] Implanted:Qty: 1 on 02/22/2023 at [facility] Left: Tibia Synthes I 02.112.143 / / Synthes Lcp Combi 158mm 11 Hole Low Profile Limit Contact Taper Tip 241.447 - [id number] Implanted:Qty: 1 on 02/22/2023 at [facility] Left: Tibia Synthes I 241.447 / / Synthes 3.5mm 2.9mm 50mm Self Tap Lock Stardrive Conical Head T15 Full 212.121 - [id number] Implanted:Qty: 1 on 02/22/2023 at [facility] Left: Tibia Synthes I 212.121 / / Synthes 3.5mm 6mm 36mm 2.5mm Self Tap Small Hexagonal Socket Low Profile 204.836 - [id number] Implanted:Qty: 2 on 02/22/2023 by Fiorella Worley MD at [facility] Right: Tibia Synthes I 204.836 / / Synthes 3.5mm 6mm 24mm 2.5mm Self Tap Small Hexagonal Socket Low Profile 204.824 - [id number] Implanted:Qty: 1 on 02/22/2023 by Fiorella Worley MD at [facility] Right: Tibia Synthes I 204.824 / / Synthes 3.5mm 2.9mm 45mm Self Tap Lock Stardrive Conical Head T15 Full 212.119 - [id number] Implanted:Qty: 2 on 02/22/2023 by Fiorella Worley MD at [facility] Right: Tibia Synthes I 212.119 / / Synthes 3.5mm 6mm 26mm 2.5mm Self Tap Small Hexagonal Socket Low Profile 204.826 - [id number] Implanted:Qty: 1 on 02/22/2023 by Fiorella Worley MD at [facility] Right: Tibia Synthes I 204.826 / / Synthes 3.5mm 2.9mm 40mm Self Tap Lock Stardrive Conical Head T15 Full 212.117 - [id number] Implanted:Qty: 2 on 02/22/2023 by Fiorella Worley MD at [facility] Left: Tibia Synthes I 212.117 / / Synthes 3.5mm 6mm 22mm 2.5mm Self Tap Small Hexagonal Socket Low Profile 204.822 - [id number] Implanted:Qty: 1 on 02/22/2023 by Fiorella Worley MD at [facility] Right: Tibia Synthes I 204.822 / / Synthes 2.7mm 2.1mm 14mm Self Tap Lock St[employer]rive Thread Head Profile T8 202.214 - [id number] Implanted:Qty: 2 on 02/22/2023 by Fiorlela Worley MD at [facility] Right: Tibia Synthes I 202.214 / / Synthes 3.5mm 6mm 30mm 2.5mm Self Tap Small Hexagonal Socket Low Profile 204.830 - [id number] Implanted:Qty: 1 on 02/22/2023 by Fiorella Worley MD at [facility] Right: Tibia Synthes I 204.830 / / Synthes 3.5mm 2.9mm 50mm Self Tap Lock Stardrive Conical Head T15 Full 212.121 - [id number] Implanted:Qty: 1 on 02/22/2023 by Fiorella Worley MD at [facility] Right: Tibia Synthes I 212.121 / / Synthes 3.5mm 2.9mm 26mm Self Tap Lock Stardrive Conical Head T15 Full 212.109 - [id number] Implanted:Qty: 1 on 02/22/2023 by Fiorella Worley MD at [facility] Right: Tibia Synthes I 212.109 / / Synthes 2.7mm 2.1mm 16mm Self Tap Lock Stardrive Thread Head Profile T8 202.216 - [id number] Implanted:Qty: 2 on 02/22/2023 by Fiorella Worley MD at [facility] Right: Tibia Synthes I 202.216 / / Synthes 3.5mm 6mm 14mm 2.5mm Self Tap Small Hexagonal Socket Low Profile 204.814 - [id number] Implanted:Qty: 1 on 02/22/2023 by Fiorella Worley MD at [facility] Right: Tibia Synthes I 204.814 / / Synthes 3.5mm 2.9mm 40mm Self Tap Lock Stardrive Conical Head T15 Full 212.117 - [id number] Implanted:Qty: 1 on 02/22/2023 by Fiorella Worley MD at [facility] Right: Tibia Synthes I 212.117 / / Synthes 3.5mm 6mm 40mm 2.5mm Self Tap Small Hexagonal Socket Low Profile 204.840 - [id number] Implanted:Qty: 1 on 02/22/2023 by Fiorella Worley MD at [facility] Right: Tibia Synthes I 204.840 / / Synthes 2.7mm 2.1mm 12mm Self Tap Lock Stardrive Thread Head Profile T8 202.212 - [id number] Implanted:Qty: 1 on 02/22/2023 by Fiorella Worley MD at [facility] Right: Tibia Synthes I 202.212 / / Synthes 2.7mm 2.1mm 12mm Self Tap Lock Stardrive Thread Head Profile T8 202.212 - [id number] Implanted:Qty: 1 on 02/22/2023 by Fiorella Worley MD at [facility] Left: Tibia Synthes I 202.212 / / Synthes Lcp Combi 210mm 15 Hole Low Profile Limit Contact Taper Tip 241.450 - [id number] Implanted:Qty: 1 on 02/22/2023 by Fiorella Worley MD at [facility] Left: Tibia Synthes I 241.450 / / [employer] Simplex P Full Dose Radiopaque Preblend Cement Bone Tobramycin 6197-9-001 - [id number] Implanted:Qty: 1 on 02/22/2023 by Fiorella Worley MD at [facility] Right: Tibia [employer] [id number] 07/21/2024 6197-9-001 / / [id number] Synthes 3.5mm 6mm 30mm 2.5mm Self Tap Small Hexagonal Socket Low Profile 204.830 - [id number] Implanted:Qty: 1 on 02/22/2023 by Fiorella Worley MD at [facility] Left: Tibia Synthes I 204.830 / / Synthes 2.7mm 2.1mm 16mm Self Tap Lock Stardrive Thread Head Profile T8 202.216 - [id number] Implanted:Qty: 1 on 02/22/2023 by Fiorella Worley MD at [facility] Left: Tibia Synthes I 202.216 / / Synthes 2.7mm 2.1mm 14mm Self Tap Lock Stardrive Thread Head Profile T8 202.214 - [id number] Implanted:Qty: 2 on 02/22/2023 by Fiorella Worley MD at [facility] Left: Tibia Synthes I 202.214 / / Synthes Lcp Combi 151mm 9 Hole Fibula Right Distal Lateral Contour Plate 02.112.148 - [id number] Implanted:Qty: 1 on 02/22/2023 by Foirella Worley MD at [facility] Right: Tibia Synthes I 02.112.148 / / Synthes 3.5mm 6mm 12mm 2.5mm Self Tap Small Hexagonal Socket Low Profile 204.812 - [id number] Implanted:Qty: 1 on 02/22/2023 by Fiorella Worley MD at [facility] Right: Tibia Synthes I 204.812 / / Synthes 3.5mm 6mm 18mm 2.5mm Self Tap Small Hexagonal Socket Low Profile 204.818 - [id number] Implanted:Qty: 1 on 02/22/2023 by Fiorella Worley MD at [facility] Right: Tibia Synthes I 204.818 / / Synthes 3.5mm 2.9mm 45mm Self Tap Lock Stardrive Conical Head T15 Full 212.119 - [id number] Implanted:Qty: 3 on 02/22/2023 by Fiorella Worley MD at [facility] Left: Tibia Synthes I 212.119 / / Synthes 3.5mm 2.9mm 40mm Self Tap Lock Stardrive Conical Head T15 Full 212.117 - [id number] Implanted:Qty: 2 on 02/22/2023 at [facility] Left: Tibia Synthes I 212.117 / / Synthes 3.5mm 6mm 28mm 2.5mm Self Tap Small Hexagonal Socket Low Profile 204.828 - [id number] Implanted:Qty: 3 on 02/22/2023 by Fiorella Worley MD at [facility] Left: Tibia Synthes I 204.828 / / Synthes 3.5mm 6mm 14mm 2.5mm Self Tap Small Hexagonal Socket Low Profile 204.814 - [id number] Implanted:Qty: 3 on 02/22/2023 by Fiorella Worley MD at [facility] Left: Tibia Synthes I 204.814 / / Synthes 3.5mm 6mm 40mm 2.5mm Self Tap Small Hexagonal Socket Low Profile 204.840 - [id number] Implanted:Qty: 1 on 02/22/2023 at [facility] Left: Tibia Synthes I 204.840 / / Synthes 3.5mm 6mm 18mm 2.5mm Self Tap Small Hexagonal Socket Low Profile 204.818 - [id number] Implanted:Qty: 1 on 02/23/2023 at [facility] Left: Tibia Synthes I 204.818 / / [employer] r[employer] Screw Bone Cortical St Non Locking Evos 3.5x30mm Ss 07847107 - [id number] Implanted:Qty: 2 on 10/25/2023 by Fiorella Worley MD at [facility] Right: Ankle [employer]/ Ortho [id number] / / [employer] Evos 3.5mm 40mm Self Tap Cortex Screw Bone Sterile 08702492 - [id number] Implanted:Qty: 1 on 10/25/2023 by Fiorella Worley MD at [facility] Right: Ankle [employer]/ Ortho [id number] / / [employer] 2.7mm 4.3mm 42mm Lock Self Retain Flat Head Long Bone Small Bone 20409673 - [id number] Implanted:Qty: 1 on 10/25/2023 by Fiorella Worley MD at [facility] Right: Ankle [employer]/ Ortho [id number] / / [employer] Evos 3.5mm 44mm Self Tap Lock Screw Bone Sterile 39188404 - [id number] Implanted:Qty: 1 on 10/25/2023 by Fiorella Worley MD at [facility] Right: Ankle [employer]/ Ortho [id number] / / 5.0 Ft Screw Implanted:Qty: 2 on 10/25/2023 by Fiorella Worley MD at [facility] Right: Ankle [employer] FRANCIS-1010-1 424NS / / Description:inactive 5.0ft Screw Implanted:Qty: 2 on 10/25/2023 by Fiorella Worley MD at [facility] Right: Ankle [employer] FRANCIS-1010-1 475NS / / Description:inactive [employer] Evos 195x11.4x3.4mm 18.8x2.7mm 15 Hole Low Profile Variable Angle 51015552 - [id number] Implanted:Qty: 1 on 10/25/2023 by Fiorella Worley MD at [facility] Right: Ankle [employer]/ Ortho [id number] / / [employer] Evos Mini 2.7mm 4.5mm 12mm Self Tap Cortex T8 Screw Bone 04764215 - [id number] Implanted:Qty: 1 on 10/25/2023 by Fiorella Worley MD at [facility] Right: Ankle [employer]/ Ortho [id number] / / [employer] Evos 3.5mm 50mm Self Tap Cortex Screw Bone Sterile 29857617 - [id number] Implanted:Qty: 1 on 10/25/2023 by Fiorella Worley MD at [facility] Right: Ankle [employer]/ Ortho [id number] / / 5.0 Ft Screw Implanted:Qty: 1 on 09/25/2024 by Fiorella Worley MD at [facility] FRANCIS-1010-1 444NS / / Description:Inactive in the system. Misc code used. 5.0 Ft Screw 2 Implanted:Qty: 2 on 09/25/2024 by Fiorella Worley MD at [facility] FRANCIS-1010-1 424NS / / Description:Inactive in syst em. Misc code used 3 Implanted:Qty: 1 on 09/25/2024 by Fiorella Worley MD at [facility] FRANCIS-1010-2 675NS / / Description:Inactive in the system. Misc code used 5.0 Pt Screw 4 Implanted:Qty: 1 on 09/25/2024 by Fiorella Worley MD at [facility] FRANCIS-1010-2 670NS / / Description:Inactive in the system. Misc code used Nail, 010mm X 210mm Implanted:Qty: 1 on 09/25/2024 by Fiorella Worley MD at [facility] [employer] FRANCIS-1010-1 0210 / / Description:Inactive in the system [facility] code used Explanted Type Area Fire Alarm Installer Device Identifier Shelf Expiration Date Model / Serial / Lot Synthes 3.5mm 6mm 32mm 2.5mm Self Tap Small Hexagonal Socket Low Profile 204.832 - [id number] Explanted:Qty: 1 on 02/22/2023 at [facility] Left: Tibia Synthes I 204.832 / / Synthes 3.5mm 6mm 150mm 2.5mm Self Tap Low Profile Small Hexagonal Socket 204.750 - [id number] Explanted:Qty: 1 on 10/25/2023 at [facility] Right: Ankle Synthes I 204.750 / / [employer]/ Ortho Evos 3.5mm 10mm Self Tap Cortex Screw Bone Sterile 06075481 - [id number] Explanted:Qty: 1 on 10/25/2023 at [facility] Right: Ankle [employer]/Or tho [id number] / / [employer]/ Ortho Evos 3.5mm 16mm Self Tap Cortex Screw Bone Sterile 88934796 - [id number] Explanted:Qty: 1 on 10/25/2023 at [facility] Right: Ankle [employer]/Or tho [id number] / / [employer]/ Ortho 2.7mm 4.3mm 16mm Self Tap Lock T8 2mm Screw Bone Evos 52198119 - [id number] Explanted:Qty: 2 on 10/25/2023 by Fiorella Worley MD at [facility] Right: Ankle [employer]Or tho [id number] / / [employer]/ Ortho 2.7mm 4.3mm 44mm Lock Self Retain Flat Head Long Bone Small Bone 53413925 - [id number] Explanted:Qty: 1 on 10/25/2023 by Fiorella Worley MD at [facility] Right: Ankle [employer]Or tho [id number] / / Procedures Procedure Name Priority Date/Time Associated Diagnosis Comments XR ANKLE LEFT 3 OR MORE VIEWS Schedule Routine, Read Routine (OP Routine) 12/26/2024 7:36 AM REGISTERED PHARMACIST 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, unspecified fracture morphology, subsequent encounter XR ANKLE LEFT 3 OR MORE VIEWS Schedule Routine, Read Routine (OP Routine) 11/07/2024 7:41 AM REGISTERED PHARMACIST 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, unspecified fracture morphology, subsequent encounter PAP AND HIGH RISK HPV, REFLEX TO GENOTYPING Routine 02/13/2024 9:40 AM CDT Health care maintenance SCREENING MAMMOGRAM BILATERAL W RONALDO Schedule Routine, Read Routine (OP Routine) 12/31/2023 2:12 PM REGISTERED PHARMACIST Screening mammogram, encounter for HEPATITIS C ANTIBODY STAT 02/22/2023 1:10 PM CDT COLONOSCOPY 09/15/2018 3:55 PM CDT from Last 3 Months or Most Recently Relevant to Health Maintenance Results * XR Ankle Left 3 or More Views (12/26/2024 7:36 AM REGISTERED PHARMACIST) Anatomical Region Laterality Modality Lower Extremities, Ankle Left Compute d Radiography 12/26/2024 7:44 AM REGISTERED PHARMACIST Impressions 12/26/2024 7:44 AM REGISTERED PHARMACIST 1. Healing distal tibia metaphysis fracture fixated with tibiotalocalcaneal nail arthrodesis. Electronically signed by: Max Garcias D.O. Narrative 12/26/2024 7:44 AM REGISTERED PHARMACIST EXAMINATION: XR ANKLE LEFT 3 OR MORE [...] 3 or More Views (11/07/2024 7:41 AM REGISTERED PHARMACIST) Anatomical Region Laterality Modality Lower Extremities, Ankle Left Compute d Radiography 11/07/2024 7:47 AM REGISTERED PHARMACIST Impressions 11/07/2024 7:47 AM REGISTERED PHARMACIST 1. Interval left tibiotalar and subtalar instrumented arthrodesis for management of comminuted nonunited distal left tibial fracture. 2. Unchanged nonunited distal left fibular fracture with interval removal of fixation implant. Electronically signed by: Karson Merino M.D. Narrative 11/07/2024 7:47 AM REGISTERED PHARMACIST EXAMINATION: XR ANKLE LEFT 3 OR MORE [...] CDT 02/13/2024 11:27 AM CDT Narrative PATHOLOGY [facility] - 02/20/2024 8:42 AM CDT EPIC results best viewed via link to PDF [facility] [place] [address] Note to Patients: This report may contain [...] Gender: F : 1965 (Age: 58) Address: [address] [place] [id number] Hospital #: [id number] Service: UNKNOWN Location: Patient Type: [facility] SPECIMEN Taken: 02/13/2024 Received: 02/13/2024 Accessioned: 02/13/2024 [...] test have been verified by the [facility] Molecular Infectious Disease laboratory. Correlate with reported [...] clinical information and biopsy results as indicated. [facility] Clinical Laboratory Improvement Amendments (CLIA) mandate that cytologic and histologic results be correlated for laboratory quality audit representative & improvement standards. FOR ALL HIGH-GRADE CASES [...] by the Surgical Pathology Department at [facility] as part of an ongoing quality control microbiology supervisor program and in compliance with federally mandated [...] by the Surgical Pathology Department of [facility]. It has not been cleared or approved by the U. S. Food and Drug Administration. Marsha Grewal MD LAB CYTOLOGY ORDER DEEPAK Final Result PATHOLOGY [facility] 3rd Floor [place], [place] [phone] * Screening Mammogram Bilateral W Ronaldo (12/31/2023 2:12 PM REGISTERED PHARMACIST) Anatomical Region Laterality Modality Breast Bilateral Mammography Narrative 01/03/2024 3:05 PM REGISTERED PHARMACIST Mammogram Technique: Bilateral Digital Breast Tomosynthesis, Bilateral C-view 2D Screening mammogram. Views obtained: bilateral craniocaudal and bilateral mediolateral oblique. Computer Aided Detection was performed. Mammogram Findings: The present examination has been compared to prior imaging studies performed at [facility] on 07/08/2020, 07/09/2021 and 08/20/2022. There [...] compared to prior imaging studies performed at [facility] on 07/08/2020, 07/09/2021 and 08/20/2022. There [...] CDT) Hep C Ab Nonreactive Nonreactive [facility] Comment:Antibodies to HCV no t detected. Does NOT exclude the possibility of recent exposure to HCV. Current interpretive data was last revised on 22 Blood 02/22/2023 1:10 PM CDT 02/22/2023 1:45 PM CDT us Notinfile Unknown LAB MICROBIOLOGY - GENERAL ORD ERABLES Final Result [facility] Department [place] [address] * COLONOSCOPY (09/15/2018 3:55 PM CDT) Anatomical Region Laterality Modality Other Narrative Procedure Note Carlos Alberto Todd MD - 09/15/2018 3:55 PM CDT GI ENDOSCOPY [facility] Patient Name: Eileen Fermin Procedure Date: 09/15/2018 3:55 PM Date of : 1965 Admit Type: Outpatient Age: 53 Gender: Female Attending MD: Carlos Alberto Todd MD Room: [facility] ENDOSCOPY ROOM 3 Note Status: Finalized Procedure: [...] scope was passed under direct vision.The CF [id number] 2202-601 endoscope was introduced throughthe anus and [...] On: 09/15/2018 3:55 PM Recognized by the [place] [employer] for promoting quality in endoscopy us Carlos Alberto Todd MD ENDOSCOPY PROCEDURES Final Re sult from Last 3 Months or Most Recently Relevant to Health Maintenance Insurance [employer] MEDICARE SOLUTIONS MEDICARE [facility] Address: [address] [address] [place] [address] [facility] MEDICARE SOLUTIONS IDPA MEDICARE SOLUTIONS MEDICARE SOLUTIONS IDPA Advance Directives For more information, please contact: [phone] Documents on File Type Date Recorded Patient Dispatcher Ship Pilot Expl anation ADVANCE DIRECTIVE 02/17/2023 1:18 PM POWER OF STEAM BOX OPERATOR-MEDICAL * Full Code (Latest Code Status on File) Date Activated Date Inactivated Comments 06/21/2023 5:15 PM 2023 6:52 PM * Full Code Date Activated Date Inactivated Comments 02/05/2023 1:05 AM 02/15/2023 8:49 PM * Full Code Date Activated Date Inactivated Comments 12/04/2019 10:24 AM 12/04/2019 4:55 PM * Full Code Date Activated Date Inactivated Comments 09/15/2018 2:40 PM 09/15/2018 8:51 PM Care Teams [employer] Sales[employer] Relationship Specialty Start Date End Date Marvin Alcaraz MD [address] [address] PCP - General Internal Medicine 03/30/24 Fiorella Worley MD [address] [address] Referring Physician Orthopedic Surgery 09/14/24
[2025-01-30 20:20] VITALS: PULSE 78; RESP 16; O2SAT 98
== END 2025-01-30 20:25 | disposition home or self-care (01) ==
PROVIDERS: Emergency Provider Student in an Organized Health Care Education/Training Program; PCP Family Medicine
DX: M25.561 Pain in right knee (principal); Z96.653 Presence of artificial knee joint, bilateral; I48.91 Unspecified atrial fibrillation; M19.019 Primary osteoarthritis, unspecified shoulder; Z98.84 Bariatric surgery status
CPT/HCPCS: 73564; 99283; A9270